=== PATIENT | female | born 1950 | race Caucasian/White ===

== ENCOUNTER 2019-07-02 06:54 | Outpatient (CLI) | payer MEDICARE, OTHER, SELFPAY ==
--- NOTE | 2019-07-02 07:03 | US_ITS ---
WS: [id number] ULTRASOUND PELVIS TECHNIQUE: Transabdominal and transvaginal. ULTRASOUND PELVIS TECHNIQUE: Transabdominal. CLINICAL INFORMATION: POSTMENOPAUSAL BLEEDING LMP: Menopause : No. COMPARISON: None. FINDINGS: Uterus Fluid noted in the lower uterine segment Orientation: Anteverted. Size: 7.7 cm x 5.2 cm x 3.4 cm. Masses: None. Cervix: Normal Endometrium: Abnormally thickened Endometrium thickness: 1.7 cm. Adnexa: Neither ovary is visualized. No adnexal masses. Free fluid: None. Other findings: None. US/US pelvic with transvaginal IMPRESSION: 1. Prominent thickened endometrium measuring 17 mm abnormal in a postmenopausa l patient suspicious for neoplasia. Recommend hysteroscopy for further evaluati on 2. Neither ovary is visualized.
== END 2019-07-02 06:55 | disposition home or self-care (01) ==
LOC: RAD 07:02
PROVIDERS: Family Provider Family Medicine; PCP Family Medicine; Visit Provider Family Medicine
DX: N95.0 Postmenopausal bleeding (principal)
CPT/HCPCS: 76830; 76856

== ENCOUNTER 2022-02-18 07:30 | Outpatient (CLI) | payer MEDICARE, SELFPAY ==
--- NOTE | 2022-02-18 08:00 | MR_ITS ---
WS: [id number] MRI LUMBAR SPINE NONCONTRAST HISTORY: Lumbar back pain with sciatica down the right side COMPARISON: None available. TECHNIQUE: Sagittal and axial multisequence imaging is submitted. Moderate increase in thoracic kyphosis. Mild RIGHT curvature thoracic spine. T7 hemangioma. LEFT lateral curvature lumbar spine. Posterior lumbar vertebral bodies are normally aligned. No marro w edema or fracture. Mild diffuse disc desiccation throughout the lumbar spine, most significant at L3-4. Conus terminates normally at L1-2 disc level. L1-L2: Normal. L2-L3: Diffuse osteophytic ridging with mild disc bulging. No focal disc component. Mild narrowing of the RIGHT foramen. Mild RIGHT facet joint arthritis. L3-L4: Mild annular disc bulging with ligamentum flavum and facet arthritis, greatest on the RIGHT. D eformity of the thecal sac due to the scoliosis and facet arthritis. There is a very shallow LEFT for aminal disc protrusion. Mild encroachment upon the traversing RIGHT L4 nerve root. Mild bilateral for aminal narrowing. L4-L5: Diffuse annular disc bulging. Shallow central disc protrusion with mild ligamentum flavum and facet arthritis. Mild bilateral subarticular recess narrowing. L5-S1: Mild disc bulging with a focal central disc protrusion. No stenosis. Retroperitoneal structures are negative. MR/MR lumbar spine wo con* [id number] IMPRESSION: 1. Degenerative disc disease and facet arthritis with LEFT lateral curvature l umbar spine. 2. Moderate foraminal narrowing at L2-3 with mild RIGHT facet joint arthritis. 3. Mild bilateral foraminal narrowing at L3-4. Very shallow LEFT foraminal dis c protrusion without nerve root encroachment. 4. Mild encroachment upon the RIGHT L4 traversing nerve root but predominantly due to the scoliosis and facet disease. 5. Central shallow disc protrusion at L4-5 with mild bilateral subarticular re cess narrowing.
== END 2022-02-18 07:31 | disposition home or self-care (01) ==
PROVIDERS: PCP Family Medicine; Visit Provider Family Medicine
DX: M54.31 Sciatica, right side (principal); M99.63 Osseous and subluxation stenosis of intervertebral foramina of lumbar region; M51.26 Other intervertebral disc displacement, lumbar region
CPT/HCPCS: 72148

== ENCOUNTER → 2022-05-17 14:56 | Outpatient (BNVA) | payer MEDICARE, SELFPAY | PROVIDERS: PCP Family Medicine; Referring Provider Family Medicine; Visit Provider Physician Assistant | DX: M47.896 Other spondylosis, lumbar region (principal); M54.16 Radiculopathy, lumbar region; M53.86 Other specified dorsopathies, lumbar region; M48.061 Spinal stenosis, lumbar region without neurogenic claudication; M25.78 Osteophyte, vertebrae | CPT/HCPCS: 72110; 99203 ==

== ENCOUNTER 2022-06-08 15:20 | Emergency (ER) | payer MEDICARE, SELFPAY ==
[2022-06-08 15:28] VITALS: BP 140/101; PULSE 94; RESP 18; TEMP 37; O2SAT 100; BMI 19.8
--- NOTE | 2022-06-08 15:57 | ED_ITS ---
HPI - Back Pain/Injury General: Chief Complaint: Back Pain/Injury Stated Complaint: nerve pain Time Seen by Provider: 06/08/22 15:41 History of Present Illness: Patient is a 71-year-old female comes to the ED with lower back pain. Patient has been dealing with lower back pain for the past 6 months. She was seen by Dr. Escudero's office and an MRI of her lumbar spine was done and she was referred to pain management clinic for some lumbar injections. She has not seen pain management yet. She is still continuing to have lower back pain that radiates down into her right leg. Bladder or bowel incontinence, pelvic anesthesia, lower extremity weakness or any recent injuries or trauma to cause pain. 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 She is currently on tramadol to help with pain. Associated symptoms: Deny abdominal pain, chills, dysuria, fatigue, fever(s), hematuria, nausea or vomiting Review of Systems Const: Denies: fever(s), chills or fatigue Eyes: Denies: change in vision or eye discomfort ENMT: Denies: throat pain, odynophagia, nasal discharge or nasal congestion Card: Denies: chest pain, palpitations, edema, swelling of feet/ankles, dyspnea on exertion or orthopnea Resp: Denies: dyspnea, productive cough or non-productive cough GI: Denies: abdominal pain, nausea, vomiting, diarrhea, constipation or hematochezia : Denies: flank pain, dysuria or hematuria Musc: Reports: back pain; Denies: neck pain or extremity swelling Skin/Breast: Denies: rash or new lesions Neuro: Denies: headache(s), numbness in extremities or weakness in extremities PFSH ED PFSH: Medical History Bulging lumbar disc Sciatica associated with disorder of lumbar spine Social History Smoking and tobacco status: never smoked Physical Exam Const: COMMON NORMALS: no acute distress, patient oriented x3 and alert HENMT: COMMON NORMALS: normocephalic HEAD & SCALP: normocephalic MOUTH: Normal oral and palatal mucosa present THROAT: posterior oropharynx normal and uvula midline Neck/C-Spine: COMMON NORMALS: supple GENERAL: Yes normal visual inspection Resp: COMMON NORMALS: normal respiratory effort, No retractions, No use of accessory muscles and clear to auscultation bilaterally AUSCULTATION: clear to auscultation bilaterally Cardio: COMMON NORMALS: regular rate, regular rhythm, S1 normal heart sound present, S2 normal heart sound present, No gallops present (Cardio), No clicks present (Cardio), No murmurs present (Cardio) and Peripheral pulses 2+ throughout RATE: regular rate RHYTHM: regular rhythm HEART SOUNDS: S1 normal heart sound present and S2 normal heart sound present PERIPHERAL PULSES: Peripheral pulses 2+ throughout GI: COMMON NORMALS: Normal to inspection, nondistended, normoactive bowel sounds present, Soft to palpation, non-tender and no masses PALPATION: Yes Soft to palpation : COMMON NORMALS: Yes no CVA tenderness BLADDER/KIDNEY EXAM: Yes no CVA tenderness Back/Pelvis: COMMON NORMALS: no CVA tenderness LUMBAR SPINE/LOWER BACK: Yes pain with ROM, No lumbar spinal tenderness and Yes paraspinal muscle tenderness Lumbar paraspinal muscle tenderness: right Right lumbar paraspinal muscle tenderness: L3, L4 and L5 Extremity: COMMON NORMALS: normal to inspection Neuro: COMMON NORMALS: patient oriented x3 SENSORIUM/ORIENTATION: Yes alert GAIT: Yes Normal gait present Skin: GENERAL SKIN EXAM: dry skin Course Vital Signs: Vital signs: Vital Signs Temperature 98.6 F 06/08/22 15:28 Pulse Rate 94 06/08/22 15:28 Respiratory Rate 18 06/08/22 15:28 Blood Pressure 140/101 06/08/22 15:28 Pulse Oximetry 100 06/08/22 15:28 Oxygen Delivery Me thod 06/08/22 15:28 MDM - Back Pain/Injury Medical Decision Making Patient is a 71-year-old female comes to the ED with lower back pain. Patient has been dealing with lower back pain for the past 6 months. She was seen by Dr. Escudero's office and an MRI of her lumbar spine was done and she was referred to pain management clinic for some lumbar injections. She has not seen pain management yet. She is still continuing to have lower back pain that radiates down into her right leg. Bladder or bowel incontinence, pelvic anesthesia, lower extremity weakness or any recent injuries or trauma to cause pain. Vital stable. Patient has L3, L4 and L5 paraspinal muscle tenderness especially on the right side. Rest of exam is benign. She appears nontoxic in no acute distress. She was given dose of Toradol, steroid and muscle relaxer here in the ED. She was stable for discharge home and told to follow-up with her PCP to get set up with pain management clinic for further treatment. She is sent with a prescription for a muscle relaxer, prednisone and NSAID. Discharge Plan Discharge Patient Disposition: Home Clinical Impression: Lumbar radiculopathy Condition: Stable Prescriptions: New celecoxib 100 mg capsule 100 mg PO BID PRN (Reason: pain) Qty: 30 0RF prednisone 20 mg tablet 20 mg PO BID 7 Days Qty: 14 0RF methocarbamol 750 mg tablet 750 mg PO Q8H PRN (Reason: Back muscle spasms and pain) Qty: 20 0RF No Action aspirin 325 mg tablet 325 mg PO Q4H Rx Instructions: while awake diclofenac sodium 50 mg tablet,delayed release (DR/EC) 50 mg PO BID Qty: 60 0RF tramadol 50 mg tablet 50 mg PO Q6H PRN (Reason: pain) 30 Days Qty: 120 0RF Discharge Orders: Discharge ED (Routine); Ordered 06/08/22 Ordered By: Gage Sanchez Referrals: Shiva Wolf MD [Primary Care Provider] - Discharge Diet: Regular Discharge Activity: Increase activity as tolerated Patient Instructions: Lumbar Radiculopathy (ED) Activity Restrictions/Additional Instructions: Follow-up with medical provider as directed in the next 7 to 10 days for reevaluation. Take medications as prescribed. Return to the ER or your medical provider if condition worsens. Please read and understand discharge instructions. Thank you for choosing [facility] for your healthcare needs today. Please realize this is an emergency room and that we are providing you with a medical screening exam and this may not be complete and all inclusive of all the testing and or work up that you may need to determine your ailment or severity of your illness. It is very important that you follow up as instructed or that you return to the Emergency Department should you have concerns or if your condition changes or worsens in any way. Coding Level of Care Code ED Territory Account Representative for Arnulfo Morales Exam Comprehensive
[2022-06-08] MEDS: ketorolac 60 mg/2 mL INJ IM (16:37)
[2022-06-08] MEDS: orphenadrine 30 mg/mL Inj 2 mL 60 MG IM (16:37)
== END 2022-06-08 16:52 | disposition home or self-care (01) ==
PROVIDERS: Emergency Provider Physician Assistant; PCP Family Medicine
DX: M54.16 Radiculopathy, lumbar region (principal)
CPT/HCPCS: 96372; 99284; J1885; J2360; J2930

== ENCOUNTER → 2022-06-14 09:50 | Outpatient (BNVA) | payer MEDICARE, SELFPAY | PROVIDERS: PCP Family Medicine; Visit Provider Anesthesiology Pain Medicine | DX: M54.16 Radiculopathy, lumbar region (principal); M51.36 Other intervertebral disc degeneration, lumbar region; M53.86 Other specified dorsopathies, lumbar region; M47.816 Spondylosis without myelopathy or radiculopathy, lumbar region; M79.604 Pain in right leg | CPT/HCPCS: 99205 ==

== ENCOUNTER → 2022-06-30 13:24 | Outpatient (BNVA) | payer MEDICARE, SELFPAY | PROVIDERS: PCP Family Medicine; Visit Provider Anesthesiology Pain Medicine | DX: M54.16 Radiculopathy, lumbar region (principal) | CPT/HCPCS: 64483; 64484; J1100; J3490 ==

== ENCOUNTER → 2022-07-14 13:09 | Outpatient (BNVA) | payer MEDICARE, SELFPAY | PROVIDERS: PCP Family Medicine; Visit Provider Anesthesiology Pain Medicine | DX: M54.16 Radiculopathy, lumbar region (principal) | CPT/HCPCS: 64483; 64484; J1100; J3490 ==

== ENCOUNTER → 2022-07-27 09:26 | Outpatient (BNVA) | payer MEDICARE, SELFPAY | PROVIDERS: PCP Family Medicine; Visit Provider Anesthesiology Pain Medicine | DX: M54.16 Radiculopathy, lumbar region (principal); M51.36 Other intervertebral disc degeneration, lumbar region; M47.816 Spondylosis without myelopathy or radiculopathy, lumbar region; M53.86 Other specified dorsopathies, lumbar region; M79.672 Pain in left foot; M79.671 Pain in right foot | CPT/HCPCS: 99213 ==

== ENCOUNTER → 2022-08-04 08:44 | Outpatient (BNVA) | payer MEDICARE, SELFPAY | PROVIDERS: PCP Family Medicine; Visit Provider Orthopaedic Surgery | DX: M48.062 Spinal stenosis, lumbar region with neurogenic claudication (principal) | CPT/HCPCS: 99214 ==

== ENCOUNTER 2022-08-08 06:00 | Outpatient (CLI) | payer MEDICARE, SELFPAY | END 2022-08-08 06:01 | disposition home or self-care (01) | LOC: RT 08-14 22:03 | PROVIDERS: PCP Family Medicine; Visit Provider Anesthesiology | DX: Z01.810 Encounter for preprocedural cardiovascular examination (principal) | CPT/HCPCS: 93005 ==

== ENCOUNTER → 2022-08-08 13:07 | Outpatient (BNVA) | payer MEDICARE, SELFPAY | PROVIDERS: PCP Family Medicine; Referring Provider Anesthesiology Pain Medicine; Visit Provider Podiatrist Foot & Ankle Surgery | DX: G57.61 Lesion of plantar nerve, right lower limb (principal); M20.41 Other hammer toe(s) (acquired), right foot; M19.071 Primary osteoarthritis, right ankle and foot; G57.91 Unspecified mononeuropathy of right lower limb | CPT/HCPCS: 73630; 93005; 99203 ==

== ENCOUNTER 2022-08-12 11:43 | Day surgery (SDC) | payer MEDICARE, SELFPAY ==
[2022-08-08 09:54] VITALS: BMI 18.2
--- NOTE | 2022-08-08 10:12 | ECG_ITS ---
[facility] Test Date: 2022-08-08 Pat Name: Arti Marie Department: Room: Gender: Female [employer] Department Chair: : 1950 Requested By: Henrik Oro Order Number: [id number] Ayden MD: Sandeep Powell M.D. Measurements Intervals [place] Rate: 89 P: 88 GA: 129 QRS: 85 QRSD: 72 T: 91 QT: 337 QTc: 412 Interpretive Statements SINUS RHYTHM POSSIBLE RIGHT ATRIAL ENLARGEMENT [0.25mV P-WAVE] POSSIBLE LEFT ATRIAL ENLARGEMENT [-0.1mV P-WAVE IN V1/V2] POSSIBLE LEFT VENTRICULAR HYPERTROPHY [VOLTAGE CRITERIA PLUS LAE OR QRS WIDENING] NONSPECIFIC ST & T-WAVE ABNORMALITY No previous ECG available for comparison Electronically Signed On 08-08-2022 17:32:37 ACCOUNTANT TAX by Sandeep Powell M.D. [email or web address]
--- NOTE | 2022-08-08 16:19 | ANES.PREANE2 ---
Pre-Anesthetic Assessment Height/Weight: Height 1.73 m Weight 54.431 kg Operation Date: 08/12/22 08:55 Proposed Procedures p Lumbar Spine Decompression:L3/4, L4/5 72026,58830, M48.062(Right) - Simone Escudero DO Familial anesthetic complications: none Was Beta Eric taken within 24 hours: N/A Was Clonidine taken within 24 hours: N/A Social No alcohol and No tobacco Exam alert, oriented x 3, clear to auscultation bilaterally and regular rate & rhythm Airway Submandibular: within normal limits Cervical ROM: within normal limits Mallampati: Class II Dentition: full Musc/skel Lower Back Pain and Osteoarthritis/DJD Neuropsych Anxiety and Neuropathy Anesthetic Plan ASA status: 2 Anesthesia: General Medications/Allergies Home Medications Medication Instructions Recorded Confirmed Last Taken Type tramadol 50 mg tablet 50 mg PO Q6H PRN pain 30 days #120 06/22/22 08/08/22 08/08/22 Rx tabs gabapentin 300 mg capsule 300 mg PO TID #90 caps 07/29/22 08/08/22 08/08/22 Rx diazepam 10 mg tablet mg PO 08/08/22 08/08/22 Unknown History Allergies Allergy/AdvReac Type Severity Reaction Status Date / Time Penicillins AdvReac Intermediate nausea Verified 08/08/22 13:18 cefdinir AdvReac Intermediate jittery Uncoded 08/08/22 13:18 [facility] Anesthesia Medical History Bulging lumbar disc Sciatica associated with disorder of lumbar spine Social History Smoking and tobacco status: never smoked Data Anesthesia Cardiac Studies: No Data to Display
[2022-08-12] VITALS (7 sets, daily range): BP systolic 106–133; BP diastolic 63–74; PULSE 61–94; RESP 16; TEMP 36.3–36.4; O2SAT 98–100
--- NOTE | 2022-08-12 | XR_ITS ---
WS: [id number] XR lumbar spine 1V [id number] REASON FOR EXAM: OR PICS FINDINGS: Surgical device overlying the right L4-5 interspace. XR/XR lumbar spine 1V [id number] IMPRESSION: Lumbar localization as above.
[2022-08-12] MEDS: sodium chloride 0.9% 1,000 ML 30 ML IV (12:36)
[2022-08-12] MEDS: HYDROmorphone 1 mg/mL INJ 1 mL 0.5 MG IVP (13:35)
[2022-08-12] MEDS: scopolamine 1.5 Patch 1 PATCH TRANSDERMA (13:35)
--- NOTE | 2022-08-12 13:38 | P.ANESUD_ITS ---
Pre-Anesthetic Update Pre-Anesthetic Assessment: Date of Surgery/Procedure: 08/12/22 Preop Sabiha gnosis: Lumbar stenosis with neurogenic claudication Proposed Procedure: Operation Date: 08/12/22 13:40 Proposed Procedures p Lumbar Spine Decompression:L3/4, L4/5 08610,68487, M48.062(Right) - Simone Escudero, DO Any changes to Pre-Anesthetic Assessment?: No Last Intake: Intake Last Liquid Date 08/12/22 Last Liquid Time 04:00 Last Solid Date 08/11/22 Last Solid Time 19:00 Vitals: Temperature 97.6 F 08/12/22 12:12 Temperature Source Temporal Artery S can 08/12/22 12:12 Pulse Rate 94 08/12/22 12:12 Pulse Rhythm 08/12/22 12:26 Pulse Strength 3+ Normal 08/12/22 12:26 Respiratory Rate 16 08/12/22 12:12 Blood Pressure 113/73 08/12/22 12:12 Blood Pressure Bridget n 86 08/12/22 12:12 Pulse Oximetry 98 08/12/22 12:12 Oxygen Delivery Me thod 08/12/22 12:26 Exam: Pre-Anes Outpt Exam: alert, oriented x 3, clear to auscultation bilaterally and regular rate & rhythm Cardiac Studies: No Data to Display
--- NOTE | 2022-08-12 13:53 | W.PM.OPSUD ---
Surgery/Procedure H&P Update DATE OF PROCEDURE: August 12, 2022 DATE H&P PERFORMED: 08/08/22 H&P UPDATE INFORMATION: I have reviewed H&P completed within last 30 days, I have examined patient prior to procedure and No changes to prior documentation PREOP DIAGNOSIS: Lumbar stenosis with neurogenic claudication PLANNED PROCEDURE: Operation Date: 08/12/22 13:40 Proposed Procedures p Lumbar Spine Decompression:L3/4, L4/5 54149,02719, M48.062(Right) - Simone Escudero DO
[2022-08-12] MEDS: clindamycin 900 MG/50 ML PREMIX 100 MG IV (14:35)
[2022-08-12] MEDS: lidocaine-epi 1% 20 mL INJ INJECTION (15:01)
--- NOTE | 2022-08-12 15:49 | PM.OP ---
Operative Report Date of procedure: August 12, 2022 Pre-op diagnosis: Preop Diagnosis Lumbar stenosis with neurogenic claudication Post-op diagnosis: same Procedure done: 1. L3-4 laminectomy with partial facetectomy 2. L4-5 laminectomy with partial facetectomy Surgeon: Simone Escudero Operational Communication Chief: Mariano Meza Estimated blood loss (mL): 5 Procedure: 1. L3-4 laminectomy with partial facetectomy 2. L4-5 laminectomy with partial facetectomy Patient is brought to the operative suite. After undergoing anesthesia they are placed in the prone position. All areas of impingement are well padded. Patient is then prepped and draped in the normal sterile fashion. A skin incision is made over the L3/4 level. This is confirmed under c-arm guidance. A series of dilators are passed and the tubular retractor is docked on the L3 lamina. A bovie is used to clear the soft tissue off the lamina and the L 3/4 facet joint. A high speed holly is then used to perform the laminectomy and take down the medial aspect of the L 3/4 facet joint. A kerrison rongeure was then used to take down the remaining lamina and smooth the edge of the laminectomy up to the point where the ligamentum flavum attaches. Attention was then brought to the medial aspect of the facet joint. The remaining medial aspect of the superior and inferior aspect of the facet joint were taken down with the kerrison from the pedicle of L3 to L 4. The facet joint had significant hypertrophy. Attention was then brought to the Ligamentum Flavum. The ligament was taken down from the lamina of L3 to L4 and out medially to the remaining facet joint. The ligament was thick. The dura was then exposed. The dura was in good repair. The L3 nerve was then traced with a curette out the L3/4 foramen and found to be adequately decompressed. The L4 nerve was traced with a curette around the L4 pedicle. The lateral recess was opened with a kerrison helping to further decompress the L4 nerve. Wound is then irrigated copiously with saline and surgiflo is used to stop any bleeding. The tubular retractor is removed and the A skin incision is made over the L4/5 level. This is confirmed under c-arm guidance. A series of dilators are passed and the tubular retractor is docked on the L4 lamina. A bovie is used to clear the soft tissue off the lamina and the L 4/5 facet joint. A high speed holly is then used to perform the laminectomy and take down the medial aspect of the L 4/5 facet joint. A kerrison rongeure was then used to take down the remaining lamina and smooth the edge of the laminectomy up to the point where the ligamentum flavum attaches. Attention was then brought to the medial aspect of the facet joint. The remaining medial aspect of the superior and inferior aspect of the facet joint were taken down with the kerrison from the pedicle of L4 to L 5. The facet joint had significant hypertrophy. Attention was then brought to the Ligamentum Flavum. The ligament was taken down from the lamina of L4 to L5 and out medially to the remaining facet joint. The ligament was thick. The dura was then exposed. The dura was in good repair. The L4 nerve was then traced with a curette out the L4/5 foramen and found to be adequately decompressed. The L5 nerve was traced with a curette around the L5 pedicle. The lateral recess was opened with a kerrison helping to further decompress the L5 nerve. Wound is then irrigated copiously with saline and surgiflo is used to stop any bleeding. The tubular retractor is removed and the wound is closed with vicryl and monocryl suture. Glue is then used to protect the wound. A sterile dressing is then placed. Patient was then placed in the supine position and transferred to the PACU in stable condition.
--- NOTE | 2022-08-12 16:18 | ANE.PACU2 ---
Inpatient post-anesthesia follow up: Airway intact: Yes Vital signs: Temperature 97.4 F Pulse Rate 71 Respiratory Rate 16 Blood Pressure 120/63 Pulse Oximetry 100 Oxygen Delivery Me thod Room Air Oxygen Flow Rate Fraction of Inspir ed Oxygen Hydration adequate: Yes Nausea and vomiting: No Pain level: 3 Mental status: Baseline
== END 2022-08-12 17:10 | disposition home or self-care (01) ==
PROVIDERS: PCP Family Medicine; Visit Provider Orthopaedic Surgery
PROC: (CPT 63005; principal; 2022-08-12 13:30)
DX: M48.062 Spinal stenosis, lumbar region with neurogenic claudication (principal); M51.36 Other intervertebral disc degeneration, lumbar region; M54.41 Lumbago with sciatica, right side; Z79.82 Long term (current) use of aspirin
CPT/HCPCS: 63047; 63048; 72020; 76000; 93005; J0131; J1100; J1170; J1885; J2370; J2405; J2704; J2710; J3010; J3490; J7030

== ENCOUNTER → 2022-08-22 13:02 | Outpatient (BNVA) | payer MEDICARE, SELFPAY | PROVIDERS: PCP Family Medicine; Visit Provider Podiatrist Foot & Ankle Surgery | DX: G57.61 Lesion of plantar nerve, right lower limb (principal); M20.41 Other hammer toe(s) (acquired), right foot; G57.91 Unspecified mononeuropathy of right lower limb; M19.071 Primary osteoarthritis, right ankle and foot | CPT/HCPCS: 64455 ==

== ENCOUNTER → 2022-08-23 13:53 | Outpatient (BNVA) | payer MEDICARE, SELFPAY | PROVIDERS: PCP Family Medicine; Visit Provider Orthopaedic Surgery | DX: Z47.89 Encounter for other orthopedic aftercare (principal) | CPT/HCPCS: 99024 ==

== ENCOUNTER → 2022-09-01 13:07 | Outpatient (BNVA) | payer MEDICARE, SELFPAY | PROVIDERS: PCP Family Medicine; Visit Provider Orthopaedic Surgery | DX: Z47.89 Encounter for other orthopedic aftercare (principal); M79.604 Pain in right leg | CPT/HCPCS: 99024 ==

== ENCOUNTER 2022-09-22 11:02 | Outpatient (CLI) | payer MEDICARE, SELFPAY ==
--- NOTE | 2022-09-22 11:00 | MR_ITS ---
WS: [id number] MRI LUMBAR SPINE NONCONTRAST HISTORY: post op lumbar sx, increased pain, decreased sensation, prior spine surgery 08/12/2022. Contin ued pain down RIGHT foot. COMPARISON: 02/18/2022 TECHNIQUE: Sagittal and axial multisequence imaging is submitted. Moderate increase in thoracic kyphosis with curvature the spine. Degenerative scoliosis. T7 hemangiom a. LEFT curvature lumbar spine. Very slight straightening of the normal lordosis. Mild disc desiccation throughout the lumbar spine. No marrow edema or fracture. Conus terminates normally at L1. L1-L2: Normal. L2-L3: Mild osteophytic ridging and disc bulging. Mild RIGHT foraminal narrowing. No change. L3-L4: Mild disc bulging. Moderate RIGHT facet joint arthritis. Mild on the LEFT. Facet joint arthrit is encroaches into the RIGHT lateral thecal sac and contacts the nerve roots. Mild encroachment upon the RIGHT traversing L4 nerve root as before. Mild LEFT foraminal narrowing. Small LEFT foraminal dis c protrusion. There are minimal postoperative changes in the soft tissues at the L3-4 level. L4-L5: Mild annular disc bulging with mild facet joint arthritis. Mild bilateral foraminal and subart icular recess stenosis. Similar to the prior study. L5-S1: No central stenosis. Very minimal disc bulging. Mild facet arthritis. There is a new lobulated soft tissue mass centered in the RIGHT foramen involving the nerve root and extending posterior to the psoas muscle. Mildly hyperintense on the T2 sequence measures 2.4 x 1.0 cm . The lobulated component that extends posterior to the psoas muscle measures 1.6 x 2.1 cm. This is a new mass since the prior study. MR/MR lumbar spine wo con* [id number] IMPRESSION: 1. New lobulated T2 mildly hyperintense mass centered in the RIGHT L5-S1 david issac and extending posterior to psoas muscle. This was not present on the prior examination from 02/18/2022. 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 This needs further evaluation with postcontrast imaging. Recommend f ollow-up MRI lumbar spine with IV contrast to evaluate for enhancement. 2. Satisfactory postsurgical changes at L3-4. 3. Moderate RIGHT facet joint arthritis at L3-4. Similar to the prior study. V romain minimal encroachment upon the RIGHT traversing L4 nerve root. Mild LEFT for aminal narrowing and disc protrusion is similar to the prior study.
== END 2022-09-22 11:03 | disposition home or self-care (01) ==
LOC: RAD 11:09
PROVIDERS: PCP Family Medicine; Visit Provider Orthopaedic Surgery
DX: M48.062 Spinal stenosis, lumbar region with neurogenic claudication (principal); M54.16 Radiculopathy, lumbar region; Z98.890 Other specified postprocedural states
CPT/HCPCS: 72148

== ENCOUNTER → 2022-09-27 12:43 | Outpatient (BNVA) | payer MEDICARE, SELFPAY | PROVIDERS: PCP Family Medicine; Visit Provider Orthopaedic Surgery | DX: M48.062 Spinal stenosis, lumbar region with neurogenic claudication (principal); R20.0 Anesthesia of skin; R20.9 Unspecified disturbances of skin sensation; D36.10 Benign neoplasm of peripheral nerves and autonomic nervous system, unspecified | CPT/HCPCS: 99024 ==

== ENCOUNTER 2022-10-11 14:48 | Outpatient (CLI) | payer MEDICARE, SELFPAY ==
--- NOTE | 2022-10-11 15:00 | CTR_ITS ---
PROCEDURE INFORMATION: Exam: CTA Right Lower Extremity With Contrast Exam date and time: 10/11/2022 3:40 PM Age: 71 years old Clinical indication: Numbness; Prior surgery; Surgery type: Back, hyst; Patient HX: HX of uterine cancer; Additional info: Numbness, cold sensation, right foot drop, rle weakness, right lower extremity TECHNIQUE: Imaging protocol: Computed tomographic angiography of the right lower extremity with contrast. 3D rendering (Not supervised by radiologist): MIP and/or 3D reconstructed images were created by the technologist. Radiation optimization: All CT scans at this facility use at least one of these dose optimization techniques: automated exposure control; mA and/or kV adjustment per patient size (includes targeted exams where dose is matched to clinical indication); or iterative reconstruction. Contrast material: OMNI 350; Contrast volume: 95 ml; Contrast route: INTRAVENOUS (IV); REPORTING DATA: Count of CT and Cardiac NM exams in prior 12 months: This patient has received 0 known CTs and 0 known cardiac nuclear medicine studies in the 12 months prior to the current study. COMPARISON: CR XR foot RT min 3V* [id number] 08/08/2022 1:10 PM RADIATION DOSE METRICS: Total DLP (mGy-cm): 560.32 FINDINGS: Aorta: Abdominal aorta: The distal abdominal aorta is patent. No aneurysm or stenosis. Right iliac arteries: The common and external iliac arteries are widely patent without stenosis. Right femoral/popliteal arteries: No occlusion or significant stenosis. Right infrapopliteal arteries: No occlusion or significant stenosis. Reproductive: The uterus and ovaries are absent. Bones/joints: Leftward lumbar curvature. The bones are intact. Soft tissues: Unremarkable. PROCEDURE INFORMATION: Exam: CTA Left Lower Extremity With Contrast Exam date and time: 10/11/2022 3:40 PM Age: 71 years old Clinical indication: Numbness; Prior surgery; Surgery type: Back, hyst; Patient HX: HX of uterine cancer; Additional info: Numbness, cold sensation, right foot drop, rle weakness, right lower extremity TECHNIQUE: Imaging protocol: Computed tomographic angiography of the left lower extremity with contrast. 3D rendering (Not supervised by radiologist): MIP and/or 3D reconstructed images were created by the technologist. REPORTING DATA: Count of CT and Cardiac NM exams in prior 12 months: This patient has received 0 known CTs and 0 known cardiac nuclear medicine studies in the 12 months prior to the current study. COMPARISON: No relevant prior studies available. FINDINGS: Left iliac arteries: The common and external iliac arteries are widely patent without stenosis. Left femoral/popliteal arteries: No occlusion or significant stenosis. Left infrapopliteal arteries: No occlusion or significant stenosis. Bones/joints: No acute fracture. No dislocation. Soft tissues: Unremarkable. CT/CT angio [facility] [id number] IMPRESSION: No large artery occlusion or stenosis.
[2022-10-11 15:37] LABS: Blood Urea Nitrogen 16 mg/dL (8-23)
[2022-10-11] MEDS: iohexol 350 mg/mL 500 mL Btl (per mL) IV (15:55)
== END 2022-10-11 14:49 | disposition home or self-care (01) ==
LOC: RAD 14:52
PROVIDERS: Radiology Neuroradiology; PCP Family Medicine; Visit Provider Orthopaedic Surgery
DX: R20.0 Anesthesia of skin (principal); R20.9 Unspecified disturbances of skin sensation
CPT/HCPCS: 73706; 82565; 84520; Q9967

== ENCOUNTER 2022-10-13 11:34 | Outpatient (CLI) | payer MEDICARE, SELFPAY ==
--- NOTE | 2022-10-13 13:00 | CTR_ITS ---
PROCEDURE INFORMATION: Exam: CT Abdomen And Pelvis With Contrast Exam date and time: 10/13/2022 1:13 PM Age: 71 years old Clinical indication: Abnormal findings; Abnormal radiologic finding of the abdomen; Radiologic exam and body structure: MR lumbar spine; Prior surgery; Surgery type: Partial hyst; Patient HX: New lobulated t2 mildly hyperintense mass centered in the right l5-s1 foramina and extending. Posterior to psoas muscle. This was not present on the prior examination from 02/18/2022. Probably; Additional info: R93.7 - abnormal findings on diagnostic imaging of other . . . TECHNIQUE: Imaging protocol: Computed tomography of the abdomen and pelvis with contrast. Radiation optimization: All CT scans at this facility use at least one of these dose optimization techniques: automated exposure control; mA and/or kV adjustment per patient size (includes targeted exams where dose is matched to clinical indication); or iterative reconstruction. Contrast material: OMNI 350; Contrast volume: 100 ml; Contrast route: INTRAVENOUS (IV); REPORTING DATA: Count of CT and Cardiac NM exams in prior 12 months: This patient has received [address] and 0 known cardiac nuclear medicine studies in the 12 months prior to the current study. COMPARISON: MR lumbar spine wo con* [id number] 09/22/2022 11:46 AM RADIATION DOSE METRICS: Total DLP (mGy-cm): 230.71 FINDINGS: Lungs: There are minor atelectatic changes at the lung bases. Liver: Normal. No mass. Gallbladder and bile ducts: Normal. No calcified stones. No ductal dilation. Pancreas: Unremarkable. Main pancreatic duct is not significantly dilated. Spleen: There are scattered calcified granulomas within the spleen, longstanding, otherwise spleen is unremarkable. Adrenal glands: Normal. No mass. Kidneys and ureters: Normal. No hydronephrosis. Stomach and bowel: Unremarkable. No obstruction. No mucosal thickening. Appendix: No evidence of appendicitis. Intraperitoneal space: Unremarkable. No free air. No significant fluid collection. Vasculature: Unremarkable. No abdominal aortic aneurysm. Lymph nodes: Unremarkable. No enlarged lymph nodes. Urinary bladder: Unremarkable as visualized. Reproductive: Uterus has been removed. Bones/joints: There is a mild scoliosis with asymmetric degenerative changes of the lumbar spine. No suspicious bone lesions detected. Soft tissues: There is a oblong-shaped indistinct soft tissue mass extending from the entry zone of the right neural foramina L5-S1 into the adjacent right paraspinal soft tissues deep to the right psoas muscle measuring approximately 4 cm in length and 1.5 cm in diameter that appears to be mildly enhancing and better demonstrated on earlier MRI exam. 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 CT/CT abdomen pelvis w con* [id number] IMPRESSION: 1. 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 2. Remainder of the CT examination is unremarkable.
[2022-10-13] MEDS: iohexol 350 mg/mL 500 mL Btl (per mL) IV (13:25)
[2022-10-13] MEDS: iohexol 350 mg/mL 500 mL Btl (per mL) PO (13:26)
== END 2022-10-13 11:35 | disposition home or self-care (01) ==
LOC: RAD 11:37
PROVIDERS: PCP Family Medicine; Visit Provider Orthopaedic Surgery
DX: R93.7 Abnormal findings on diagnostic imaging of other parts of musculoskeletal system (principal)
CPT/HCPCS: 74177; Q9967

== ENCOUNTER 2022-10-20 15:38 | Outpatient (CLI) | payer MEDICARE, SELFPAY ==
--- NOTE | 2022-10-20 16:00 | MR_ITS ---
WS: [id number] MRI RIGHT FOOT without CONTRAST. COMPARISON: 08/08/2022 Multiplanar, multisequence imaging is performed without contrast. No acute fractures or marrow edema. There is a small subchondral cyst in the medial navicular. There is an additional small subchondral cyst in the first cuneiform. No widening of the Lisfranc joint. Th e ligament appears intact and well visualized, especially the posterior component. Normal alignment w ith between the tarsal bones and metatarsals. No subluxation. No significant soft tissue edema. No fluid collections or mass identified. Distal peroneal brevis and longus are normal. No significant amount of fluid in the tendon sheaths. No significant atrophy of t he muscles. Appropriate for patient's age. MR/MR foot RT wo con* [id number] IMPRESSION: 1. No acute fractures or subluxation or dislocation. 2. No tendon abnormalities identified. 3. Small subchondral cyst in the medial navicular and first cuneiform.
== END 2022-10-20 15:39 ==
LOC: RAD 15:49
PROVIDERS: PCP Family Medicine; Visit Provider Podiatrist Foot & Ankle Surgery
DX: G57.61 Lesion of plantar nerve, right lower limb (principal); M20.41 Other hammer toe(s) (acquired), right foot; M19.079 Primary osteoarthritis, unspecified ankle and foot; G57.91 Unspecified mononeuropathy of right lower limb
CPT/HCPCS: 73718; 99213

== ENCOUNTER → 2022-10-31 14:20 | Outpatient (BNVA) | payer MEDICARE, SELFPAY | PROVIDERS: PCP Family Medicine; Visit Provider Podiatrist Foot & Ankle Surgery | DX: G57.61 Lesion of plantar nerve, right lower limb (principal); M20.41 Other hammer toe(s) (acquired), right foot; M19.071 Primary osteoarthritis, right ankle and foot; G57.91 Unspecified mononeuropathy of right lower limb | CPT/HCPCS: 99213 ==

== ENCOUNTER → 2022-11-01 12:50 | Outpatient (BNVA) | payer MEDICARE, SELFPAY | PROVIDERS: PCP Family Medicine; Visit Provider Orthopaedic Surgery | DX: D49.2 Neoplasm of unspecified behavior of bone, soft tissue, and skin (principal) | CPT/HCPCS: 99024 ==

== ENCOUNTER 2022-11-06 13:53 | Emergency (ER) | payer MEDICARE, SELFPAY ==
[2022-11-06 14:04] VITALS: BP 143/74; PULSE 80; RESP 14; TEMP 36.6; O2SAT 99; BMI 16.7
[2022-11-06 15:40] LABS: Basophils # 0.1 10^3/uL (0.0-0.1); Basophils % 0.8 %; Eosinophils # 0.1 10^3/uL (0.0-0.8); Eosinophils % 1.8 %; Hematocrit 30.3 % (37.0-47.0); Hemoglobin 9.5 g/dL (11.5-15.3); Lymphocytes # 1.6 10^3/uL (0.8-4.8); Lymphocytes % 24.9 %; Mean Corpuscular HGB Conc 31.4 g/dL (30.0-36.0); Mean Corpuscular Hemoglobin 30.4 pg (28.0-34.0); Mean Corpuscular Volume 96.8 fl (81-99); Mean Platelet Volume 9.1 fL (7.4-10.4); Monocytes # 0.3 10^3/uL (0.2-0.9); Monocytes % 5.4 %; Neutrophils % 66.9 %; Nucleated Red Blood Cells % 0 %; Platelet Count 367 10^3/cmm (130-400); Red Blood Count 3.13 10^6/uL (4.1-5.3); Red Cell Distribution Width 13.2 % (12.1-15.1); White Blood Count 6.3 10^3/uL (4.0-10.0)
[2022-11-06 16:00] LABS: Alanine Aminotransferase 23 U/L (0-33); Albumin Level 4.4 g/dL (3.5-5.2); Alkaline Phosphatase 75 U/L (35-105); Anion Gap 13.6 (5-19); Aspartate Amino Transferase 25 U/L (0-32); Blood Urea Nitrogen 17 mg/dL (8-23); Calcium 9.4 mg/dL (8.5-10.5); Carbon Dioxide 28 mmol/L (22-29); Chloride 98 mmol/L (98-107); Globulin 2.8 g/dL (1.3-4.6); Glucose 95 mg/dL (65-115); Osmolality Calculated 281 mOsm/kg (285-295); Potassium 4.6 mmol/L (3.5-5.1); Sodium 135 mmol/L (136-145); Total Bilirubin 0.2 mg/dL (0.15-1.2); Total Protein 7.2 g/dL (6.6-8.7)
--- NOTE | 2022-11-06 17:01 | W.ED.GENADLT ---
HPI - General Adult General: Chief complaint: Airway/Esophagus Foreign Body Stated complaint: Left side neck swelling Time Seen by Provider: 11/06/22 17:00 History of Present Illness: 71-year-old female comes in today for complaints of swelling to the left anterior neck. Patient reports some mild difficulty with swallowing. Airway is intact. Patient just noticed the swelling this morning. Patient reports some mild improvement in swelling since arriving to the ER. There is noticeable anterior left side swelling of the neck. Patient has a history of recent lumbar spinal surgery in August. Patient reports numbness and her right lower extremity with no improvement since surgery. 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 Fluctuant palpable mass approximately 3 cm MOUTH: Normal oral and palatal mucosa present THROAT: posterior oropharynx normal Neck/C-Spine: COMMON NORMALS: full ROM Chest: COMMONS NORMALS: normal palpation of entire chest wall Resp: COMMON NORMALS: normal respiratory effort Cardio: COMMON NORMALS: regular rate and regular rhythm RATE: regular rate RHYTHM: regular rhythm GI: COMMON NORMALS: non-tender Neuro: SENSORIUM/ORIENTATION: Yes alert Skin: COMMON NORMALS: turgor normal GENERAL SKIN EXAM: turgor normal Course ED course: 1811, reviewed patient with Dr. Hagan who recommended that we consult ENT specialist for further evaluation and treatment. I reviewed this with patient that we would reach out with ENT specialist at [facility] and she agreed with plan. 2020, discussed patient with a nurse practitioner of [facility], they recommended patient be followed up with head and neck for biopsy of lesion, and as long as she was able to manage secretions and there was in no distress she would be appropriate for outpatient follow-up. Discussed this with patient who agreed to plan and need for follow-up or return to the ER. Vital Signs: Vital signs: Vital Signs Temperature 97.8 F 11/06/22 14:04 Pulse Rate 80 11/06/22 14:04 Respiratory Rate 14 11/06/22 14:04 Blood Pressure 143/74 11/06/22 14:04 Pulse Oximetry 99 11/06/22 14:04 Oxygen Delivery Me thod Room Air 11/06/22 14:04 MDM - General Adult Medical Decision Making 71-year-old female comes in today for concerns of swelling to the left anterior neck. On exam we note a fluctuant palpable mass approximately 3 cm to the anterior neck with no signs of redness or warmth. Differential diagnosis includes not limited to aneurysm, abscess, cyst, lymphadenitis. Laboratory values noted some mild anemia with a hemoglobin 9.5. Remainder of labs are unremarkable. CT of the neck noted 5.3 round largely cystic mass to the peripheral nodule soft tissue concerning for malignant process. I discussed this with Dr. Hagan who recommended we contact the ENT at [facility] for further evaluation and discussion. They recommended outpatient follow-up with planned biopsy of the mass. Case management was requested to help set up biopsy AUNG. Patient reports understanding and need for follow-up or return to the ER. Lab Data 11/06/22 15:08 11/06/22 15:[address] 11/06/22 17:14 IMPRESSION: 1. Left medial supraclavicular 5.3 cm rounded largely cystic mass with peripheral nodular soft tissue thickening, concerning for a malignant process, tissue sampling advised. The mass causes rightward displacement of the trachea and thyroid gland as well as contacts the left common carotid artery and vertebral artery. 2. 13 mm complex cyst, further evaluation with nonemergent thyroid ultrasound advised. 3. Apical emphysematous changes. 4. Biapical pleuroparenchymal fibrosis. COMMENTS: Consistent with the [employer]'s Incidental Findings Committee white paper (J Am Colby Radiol 2015): In patients aged 35 years and older with an incidental thyroid nodule equal to or greater than 1.[address], MRI or extrathyroidal US, further evaluation with dedicated thyroid US is recommended for patients with normal life expectancy and without comorbidities. For smaller nodules without suspicious features, no further evaluation or follow up is recommended. Laboratory Results WBC 6.3 10^3/uL (4.0-10.0) 11/06/22 15:08 RBC 3.13 10^6/uL (4.1-5.3) L 11/06/22 15:08 Hgb 9.5 g/dL (11.5-15.3) L 11/06/22 15:08 Hct 30.3 % (37.0-47.0) L 11/06/22 15:08 MCV 96.8 fl (81-99) 11/06/22 15:08 MCH 30.4 pg (28.0-34.0) 11/06/22 15:08 MCHC 31.4 g/dL (30.0-36.0) 11/06/22 15:08 RDW 13.2 % (12.1-15.1) 11/06/22 15:08 Plt Count 367 10^3/cmm (130-400) 11/06/22 15:08 MPV 9.1 fL (7.4-10.4) 11/06/22 15:08 Neut % (Auto) 66.9 % 11/06/22 15:08 Lymph % (Auto) 24.9 % 11/06/22 15:08 [place] % (Auto) 5.4 % 11/06/22 15:08 Eos % (Auto) 1.8 % 11/06/22 15:08 Baso % (Auto) 0.8 % 11/06/22 15:08 Neut # (Auto) 4.20 10^3/uL (1.8-7.7) 11/06/22 15:08 Lymph # (Auto) 1.6 10^3/uL (0.8-4.8) 11/06/22 15:08 [place] # (Auto) 0.3 10^3/uL (0.2-0.9) 11/06/22 15:08 Eos # (Auto) 0.1 10^3/uL (0.0-0.8) 11/06/22 15:08 Baso # (Auto) 0.1 10^3/uL (0.0-0.1) 11/06/22 15:08 Nucleated RBC % (auto) 0 % 11/06/22 15:08 Nucleated RBCs # 0.0 /100WBC 11/06/22 15:08 Sodium 135 mmol/L (136-145) L 11/06/22 15:08 Potassium 4.6 mmol/L (3.5-5.1) 11/06/22 15:08 Chloride 98 mmol/L (98-107) 11/06/22 15:08 Carbon Dioxide 28 mmol/L (22-29) 11/06/22 15:08 Anion Gap 13.6 (5-19) 11/06/22 15:08 BUN 17 mg/dL (8-23) 11/06/22 15:08 Creatinine 0.7 mg/dL (0.5-0.9) 11/06/22 15:08 GFR Calculation Not Reportable 11/06/22 15:08 Glucose 95 mg/dL (65-115) 11/06/22 15:08 Calculated Osmolality 281 mOsm/kg (285-295) L 11/06/22 15:08 Calcium 9.4 mg/dL (8.5-10.5) 11/06/22 15:08 Total Bilirubin 0.2 mg/dL (0.15-1.2) 11/06/22 15:08 AST 25 U/L (0-32) 11/06/22 15:08 ALT 23 U/L (0-33) 11/06/22 15:08 Alkaline Phosphatase 75 U/L (35-105) 11/06/22 15:08 Total Protein 7.2 g/dL (6.6-8.7) 11/06/22 15:08 Albumin 4.4 g/dL (3.5-5.2) 11/06/22 15:08 Globulin 2.8 g/dL (1.3-4.6) 11/06/22 15:08 Discharge Plan Discharge Patient Disposition: Home Clinical Impression: Mass of left side of neck, Abnormal CT scan Condition: Stable Prescriptions: No Action prednisone 20 mg tablet 20 mg PO DAILY Qty: 15 0RF Rx Instructions: 60mg on day 1,2,3 40mg on day 4,5 20mg on day 6,7 cyclobenzaprine 5 mg tablet 5 mg PO TID PRN (Reason: muscle spasm) Qty: 30 0RF hydrocodone-acetaminophen 5-325 mg tablet 1 - 2 tab PO Q4H PRN (Reason: pain) 7 Days Qty: 40 0RF tramadol 50 mg tablet 50 mg PO Q6H PRN (Reason: pain) 30 Days Qty: 120 5RF gabapentin 300 mg capsule 300 mg PO TID Qty: 90 3RF Discharge Orders: Discharge ED (Routine); Ordered 11/06/22 Ordered By: Agustin Edge Referrals: Shiva Wolf MD [Primary Care Provider] - Discharge Diet: Usual diet Discharge Activity: Increase activity as tolerated Patient Instructions: Lump/Mass Activity Restrictions/Additional Instructions: Home and rest. Case management will contact you within the next 24 to 72 hours regarding follow-up appointment for biopsy of mass. Coding Level of Care Code ED Supervisor [employer] for [facility] Morales
--- NOTE | 2022-11-06 17:14 | CTR_ITS ---
PROCEDURE INFORMATION: Exam: CT Neck With Contrast Exam date and time: 11/06/2022 5:32 PM Age: 71 years old Clinical indication: Mass, lump, or swelling in neck; Left and anterior; Patient HX: Mass marked with radiopaque marker; Additional info: Fluctuant mass left anterior TECHNIQUE: Imaging protocol: Computed tomography of the neck with contrast. Radiation optimization: All CT scans at this facility use at least one of these dose optimization techniques: automated exposure control; mA and/or kV adjustment per patient size (includes targeted exams where dose is matched to clinical indication); or iterative reconstruction. Contrast material: OMNI 350; Contrast volume: 80 ml; Contrast route: INTRAVENOUS (IV); REPORTING DATA: Count of CT and Cardiac NM exams in prior 12 months: This patient has received 2 known CTs and 0 known cardiac nuclear medicine studies in the 12 months prior to the current study. COMPARISON: CT chest wo con [id number] 05/19/2016 2:18 PM RADIATION DOSE METRICS: Total DLP (mGy-cm): 278.42 FINDINGS: Pharynx: Unremarkable. No significant tonsillar enlargement. Larynx: Unremarkable. Epiglottis is normal. Prevertebral and retropharyngeal spaces: Unremarkable. Salivary glands: Normal. Glands are normal in size. Thyroid: 13 mm complex cyst, further evaluation with nonemergent thyroid ultrasound advised. Lymph nodes: Unremarkable. No lymphadenopathy. Trachea: Visualized trachea is unremarkable. Lungs: Apical emphysematous changes. Biapical pleuroparenchymal fibrosis. Bones/joints: Left medial supraclavicular 5.3 cm rounded largely cystic mass with peripheral nodular soft tissue thickening, concerning for a malignant process, tissue sampling advised. The mass causes rightward displacement of the trachea and thyroid gland as well as contacts the left common carotid artery and vertebral artery. Soft tissues: Unremarkable. No significant soft tissue swelling. CT/CT neck w con* [id number] IMPRESSION: 1. Left medial supraclavicular 5.3 cm rounded largely cystic mass with peripheral nodular soft tissue thickening, concerning for a malignant process, tissue sampling advised. The mass causes rightward displacement of the trachea and thyroid gland as well as contacts the left common carotid artery and vertebral artery. 2. 13 mm complex cyst, further evaluation with nonemergent thyroid ultrasound advised. 3. Apical emphysematous changes. 4. Biapical pleuroparenchymal fibrosis. COMMENTS: Consistent with the [employer]'s Incidental Findings Committee white paper (J Am Colby Radiol 2015): In patients aged 35 years and older with an incidental thyroid nodule equal to or greater than 1.[address], MRI or extrathyroidal US, further evaluation with dedicated thyroid US is recommended for patients with normal life expectancy and without comorbidities. For smaller nodules without suspicious features, no further evaluation or follow up is recommended.
--- NOTE | 2022-11-06 17:30 | PC.NURSE ---
PT IS AWAKE ALERT AND ANSWERING QUESTIONS APPROPRIATELY. PT BREATHING IS NONLABORED. RATE AND RHYTHM ARE WNL. PT SKIN IS WARM DRY AND PINK. PT HAS IN THE DISTAL END OF LEFT NECK A NONTENDER MASS STARTING TODAY APPROX THE SIZE OF AN EGG.
[2022-11-06] MEDS: iohexol 350 mg/mL 500 mL Btl (per mL) IV (17:46)
--- NOTE | 2022-11-06 18:51 | PC.NURSE ---
REPORT GIVEN TO [facility].
[2022-11-06 20:34] VITALS: BP 181/87; PULSE 86; RESP 16; O2SAT 97
--- NOTE | 2022-11-08 09:29 | DCPLANNER ---
Addendum entered by Lisbeth Oliva 11/09/22 10:13: database marketing manager called [facility] to confirm that clinic had received patients information. database marketing manager was told that patients information was received, it will be reviewed and clinic will call patient with appointment information. Original Note: database marketing manager had message to refer patient to [facility] in [place]. database marketing manager faxed patients information to the ENT clinic, where information will be reviewed. Clinic will call patient with appointment information.
== END 2022-11-06 20:35 | disposition home or self-care (01) ==
PROVIDERS: Emergency Medicine; Emergency Provider Nurse Practitioner Family; PCP Family Medicine
DX: R22.1 Localized swelling, mass and lump, neck (principal); R94.8 Abnormal results of function studies of other organs and systems
CPT/HCPCS: 36415; 70491; 80053; 85025; 99285; Q9967

== ENCOUNTER 2023-01-02 11:11 | Oncology outpatient (recurring) (ONCR) | payer MEDICARE, SELFPAY | END 2023-01-09 23:59 | disposition home or self-care (01) | LOC: ONCMED 11:12 | PROVIDERS: PCP Family Medicine; Visit Provider Internal Medicine Medical Oncology | DX: C79.51 Secondary malignant neoplasm of bone (principal); C77.0 Secondary and unspecified malignant neoplasm of lymph nodes of head, face and neck; Z85.42 Personal history of malignant neoplasm of other parts of uterus; Z92.21 Personal history of antineoplastic chemotherapy; Z92.3 Personal history of irradiation | CPT/HCPCS: 99205 ==

== ENCOUNTER 2023-02-06 08:15 | Oncology outpatient (recurring) (ONCR) | payer MEDICARE, SELFPAY ==
[2023-02-06 08:57] LABS: Basophils # 0.1 10^3/uL (0.0-0.1); Basophils % 1.4 %; Eosinophils # 0.2 10^3/uL (0.0-0.8); Eosinophils % 3.5 %; Hematocrit 25.5 % (36-47); Lymphocytes # 0.8 10^3/uL (0.8-4.8); Lymphocytes % 17.2 %; Mean Corpuscular HGB Conc 32.9 g/dL (30-55); Mean Corpuscular Hemoglobin 29.8 pg (27-33); Mean Corpuscular Volume 90.4 fl (85-98); Mean Platelet Volume 8.7 fL (7.4-10.4); Monocytes # 0.3 10^3/uL (0.2-0.9); Monocytes % 6.8 %; Neutrophils # 3.46 10^3/uL (1.8-7.7); Neutrophils % 70.9 %; Nucleated Red Blood Cells % 0 %; Platelet Count 330 10^3/cmm (157-399); Red Blood Count 2.82 10^6/uL (3.85-5.65); White Blood Count 4.88 10^3/uL (3.29-11.43)
[2023-02-06 09:32] LABS: Alanine Aminotransferase 16 U/L (0-33); Albumin Level 3.6 g/dL (3.5-5.2); Alkaline Phosphatase 52 U/L (35-105); Anion Gap 11.3 (5-19); Aspartate Amino Transferase 23 U/L (0-32); Blood Urea Nitrogen 10 mg/dL (8-23); CA 125 13.3 U/mL (0-35); Calcium 8.6 mg/dL (8.5-10.5); Carbon Dioxide 26 mmol/L (22-29); Chloride 97 mmol/L (98-107); Globulin 2.5 g/dL (1.3-4.6); Glucose 108 mg/dL (65-115); Osmolality Calculated 270 mOsm/kg (285-295); Potassium 4.3 mmol/L (3.5-5.1); Sodium 130 mmol/L (136-145); Total Bilirubin 0.2 mg/dL (0.15-1.2); Total Protein 6.1 g/dL (6.6-8.7)
[2023-02-06 10:56] VITALS: BP 157/77; PULSE 68; RESP 16; TEMP 36.6; O2SAT 92
[2023-02-06] MEDS: sodium chloride 0.9% 250 ML 75 ML IV (11:29)
[2023-02-06] MEDS: diphenhydrAMINE 50 mg/mL SDV 1mL 25 MG IVP (11:32)
[2023-02-06] MEDS: acetaminophen 325 mg Tablet 650 MG PO (11:32)
[2023-02-06] MEDS: OLANZapine 5 mg TABLET PO (11:32)
[2023-02-06] MEDS: palonosetron 0.25 mg/5 mL SDV IVP (11:36)
[2023-02-06] MEDS: famotidine 20 mg/2 mL INJ IVP (11:38)
[2023-02-06] MEDS: fosaprepitant 150 MG in sodium chloride 0.9% 150 ML 300 MG IV (11:44)
[2023-02-06 18:20] VITALS: BP 120/71; PULSE 80; RESP 16; TEMP 36.9; O2SAT 95
== END 2023-02-09 23:59 | disposition home or self-care (01) ==
PROVIDERS: PCP Family Medicine; Visit Provider Internal Medicine Medical Oncology
DX: Z51.11 Encounter for antineoplastic chemotherapy (principal); C55 Malignant neoplasm of uterus, part unspecified; C77.0 Secondary and unspecified malignant neoplasm of lymph nodes of head, face and neck; C79.51 Secondary malignant neoplasm of bone; Z79.899 Other long term (current) drug therapy; Z85.42 Personal history of malignant neoplasm of other parts of uterus
CPT/HCPCS: 80053; 85025; 86304; 96367; 96375; 96413; 96415; 96417; 99214; 99215; J1100; J1200; J1453; J1642; J2469; J3490; J7030; J7040; J7050; J9045; J9267; Q5107

== ENCOUNTER 2023-02-28 07:30 | Oncology outpatient (recurring) (ONCR) | payer MEDICARE, SELFPAY ==
[2023-02-14 10:21] LABS: Basophils % 1.2 %; Eosinophils # 0.1 10^3/uL (0.0-0.8); Eosinophils % 3.1 %; Hematocrit 25.5 % (36-47); Lymphocytes % 31.8 %; Mean Corpuscular HGB Conc 32.9 g/dL (30-55); Mean Corpuscular Volume 91.1 fl (85-98); Mean Platelet Volume 8.9 fL (7.4-10.4); Monocytes # 0.2 10^3/uL (0.2-0.9); Monocytes % 6.7 %; Neutrophils # 1.86 10^3/uL (1.8-7.7); Neutrophils % 56.9 %; Nucleated Red Blood Cells % 0 %; Platelet Count 298 10^3/cmm (157-399); Red Cell Distribution Width 12.7 % (12.1-15.1); White Blood Count 3.27 10^3/uL (3.29-11.43)
[2023-02-14 10:39] LABS: Alanine Aminotransferase 21 U/L (0-33); Albumin Level 4.1 g/dL (3.5-5.2); Alkaline Phosphatase 56 U/L (35-105); Anion Gap 11.5 (5-19); Aspartate Amino Transferase 23 U/L (0-32); Blood Urea Nitrogen 15 mg/dL (8-23); Carbon Dioxide 26 mmol/L (22-29); Chloride 95 mmol/L (98-107); Globulin 2.4 g/dL (1.3-4.6); Glucose 96 mg/dL (65-115); Osmolality Calculated 267 mOsm/kg (285-295); Potassium 4.5 mmol/L (3.5-5.1); Sodium 128 mmol/L (136-145); Total Bilirubin 0.2 mg/dL (0.15-1.2); Total Protein 6.5 g/dL (6.6-8.7)
[2023-02-21 11:29] VITALS: BMI 17.6
[2023-02-21 11:30] VITALS: BP 163/91; PULSE 73; RESP 18; TEMP 36.6; O2SAT 90
[2023-02-21 12:21] LABS: Alanine Aminotransferase 20 U/L (0-33); Albumin Level 3.9 g/dL (3.5-5.2); Alkaline Phosphatase 70 U/L (35-105); Anion Gap 11.7 (5-19); Aspartate Amino Transferase 25 U/L (0-32); Blood Urea Nitrogen 11 mg/dL (8-23); Calcium 8.8 mg/dL (8.5-10.5); Carbon Dioxide 26 mmol/L (22-29); Chloride 98 mmol/L (98-107); Globulin 2.6 g/dL (1.3-4.6); Glucose 102 mg/dL (65-115); Osmolality Calculated 272 mOsm/kg (285-295); Potassium 4.7 mmol/L (3.5-5.1); Sodium 131 mmol/L (136-145); Total Bilirubin 0.2 mg/dL (0.15-1.2); Total Protein 6.5 g/dL (6.6-8.7)
[2023-02-21 12:44] LABS: Basophils # 0.1 10^3/uL (0.0-0.1); Basophils % 1.3 %; Eosinophils # 0.1 10^3/uL (0.0-0.8); Eosinophils % 2.4 %; Hematocrit 25.2 % (36-47); Lymphocytes # 0.9 10^3/uL (0.8-4.8); Lymphocytes % 23.6 %; Mean Corpuscular HGB Conc 33.7 g/dL (30-55); Mean Corpuscular Hemoglobin 30.6 pg (27-33); Mean Corpuscular Volume 90.6 fl (85-98); Mean Platelet Volume 9.3 fL (7.4-10.4); Monocytes # 0.5 10^3/uL (0.2-0.9); Monocytes % 13.1 %; Neutrophils # 2.26 10^3/uL (1.8-7.7); Neutrophils % 59.3 %; Nucleated Red Blood Cells % 0 %; Platelet Count 249 10^3/cmm (157-399); Red Blood Count 2.78 10^6/uL (3.85-5.65); Red Cell Distribution Width 13.5 % (12.1-15.1); White Blood Count 3.81 10^3/uL (3.29-11.43)
[2023-02-28 07:39] VITALS: BP 173/104; PULSE 79; RESP 16; TEMP 36.3; O2SAT 97
[2023-02-28 08:00] LABS: Basophils % 0.3 %; Hematocrit 28.3 % (36-47); Lymphocytes # 0.5 10^3/uL (0.8-4.8); Lymphocytes % 17.3 %; Mean Corpuscular HGB Conc 33.9 g/dL (30-55); Mean Corpuscular Hemoglobin 30.1 pg (27-33); Mean Corpuscular Volume 88.7 fl (85-98); Mean Platelet Volume 8.6 fL (7.4-10.4); Monocytes % 0.7 %; Neutrophils # 2.49 10^3/uL (1.8-7.7); Neutrophils % 81.4 %; Nucleated Red Blood Cells % 0 %; Platelet Count 366 10^3/cmm (157-399); Red Blood Count 3.19 10^6/uL (3.85-5.65); Red Cell Distribution Width 13.7 % (12.1-15.1); White Blood Count 3.06 10^3/uL (3.29-11.43)
[2023-02-28 08:15] LABS: Add Urine Microscopic? YES; Bilirubin Urine Neg (Negative); Blood Urine Trace (Negative); Glucose Urine UA Norm (Normal); Ketones Urine Negative (Negative); Leukocyte Esterase Urine 2+ (Negative); Nitrate Urine Positive (Negative); Protein Urine Neg (Negative); Urine Appearance Cloudy (CLEAR); Urine Color Yellow (Yellow); Urobilinogen Urine Norm (Negative); pH Urine 7 (5-7)
[2023-02-28 08:23] LABS: Alanine Aminotransferase 18 U/L (0-33); Albumin Level 4.4 g/dL (3.5-5.2); Alkaline Phosphatase 78 U/L (35-105); Anion Gap 14.6 (5-19); Aspartate Amino Transferase 22 U/L (0-32); Blood Urea Nitrogen 10 mg/dL (8-23); Calcium 9.4 mg/dL (8.5-10.5); Carbon Dioxide 26 mmol/L (22-29); Chloride 93 mmol/L (98-107); Globulin 2.7 g/dL (1.3-4.6); Glucose 174 mg/dL (65-115); Osmolality Calculated 271 mOsm/kg (285-295); Potassium 4.6 mmol/L (3.5-5.1); Sodium 129 mmol/L (136-145); Total Bilirubin 0.2 mg/dL (0.15-1.2); Total Protein 7.1 g/dL (6.6-8.7)
[2023-02-28 08:26] LABS: RBC Urine 0-4 /hpf (0-2); WBC Urine 15-25 /hpf (0-5)
[2023-02-28 08:27] LABS: Add Urine Culture? Yes; Amorphous Sediment Urine TRACE /hpf; Bacteria Urine 3+ /hpf; Mucus Urine 1+ /hpf; Renal Epithelial Cells Urine RARE /hpf; Squamous Epithelial Cell Urine 0-4 /hpf (0-5)
[2023-02-28] MEDS: sodium chloride 0.9% 250 ML 75 ML IV (10:09)
[2023-02-28] MEDS: OLANZapine 5 mg TABLET PO (10:12)
[2023-02-28] MEDS: acetaminophen 325 mg Tablet 650 MG PO (10:12)
[2023-02-28] MEDS: palonosetron 0.25 mg/5 mL SDV IVP (10:14)
[2023-02-28] MEDS: diphenhydrAMINE 50 mg/mL SDV 1mL 25 MG IVP (10:16)
[2023-02-28] MEDS: famotidine 20 mg/2 mL INJ IVP (10:18)
[2023-02-28] MEDS: fosaprepitant 150 MG in sodium chloride 0.9% 150 ML 300 MG IV (10:22)
[2023-02-28] MEDS: [UNRECOGNIZED DRUG - REMARK] 182.22 MG IV (12:25)
[2023-02-28] MEDS: SODIUM CHLORIDE 0.9% IV (15:46)
[2023-02-28] MEDS: CARBOPLATIN IV (15:46)
[2023-02-28 17:11] VITALS: BP 154/90; PULSE 78; RESP 16; TEMP 36.4; O2SAT 98
[2023-03-01 09:40] LABS: Creatinine Urine, Random 51 mg/dL (28-217); Microalbumin Random Urine 5 ug/dL (0-20); Total Protein, Random Urine 18.1 mg/dL (0.0-20.0)
[2023-03-01 09:42] LABS: Microalbum Creatinine Ratio Ur 98 mg/dL (0-20)
== END 2023-03-11 23:59 | disposition home or self-care (01) ==
PROVIDERS: Internal Medicine Medical Oncology; Nurse Practitioner Family; PCP Family Medicine; Visit Provider Internal Medicine Medical Oncology
DX: C54.1 Malignant neoplasm of endometrium (principal); C77.0 Secondary and unspecified malignant neoplasm of lymph nodes of head, face and neck; C79.51 Secondary malignant neoplasm of bone; R60.0 Localized edema; Z92.3 Personal history of irradiation; Z51.11 Encounter for antineoplastic chemotherapy; Z53.9 Procedure and treatment not carried out, unspecified reason
CPT/HCPCS: 36591; 80053; 81001; 82044; 84156; 85025; 87077; 87086; 87186; 96367; 96374; 96375; 96376; 96413; 96415; 96417; 99214; J1100; J1200; J1453; J1642; J2469; J3490; J7030; J7040; J7050; J9045; J9267; Q5107

== ENCOUNTER 2023-04-11 11:45 | Oncology outpatient (recurring) (ONCR) | payer MEDICARE, SELFPAY ==
[2023-03-21 08:09] VITALS: BP 171/80; PULSE 63; RESP 16; TEMP 36.3; O2SAT 97
[2023-03-21 08:31] LABS: Basophils % 0.7 %; Eosinophils # 0.1 10^3/uL (0.0-0.8); Eosinophils % 2.6 %; Hematocrit 25.1 % (36-47); Lymphocytes # 0.9 10^3/uL (0.8-4.8); Lymphocytes % 32.6 %; Mean Corpuscular HGB Conc 33.9 g/dL (30-55); Mean Corpuscular Hemoglobin 30.5 pg (27-33); Mean Platelet Volume 8.7 fL (7.4-10.4); Monocytes # 0.3 10^3/uL (0.2-0.9); Neutrophils # 1.45 10^3/uL (1.8-7.7); Neutrophils % 53.7 %; Nucleated Red Blood Cells % 0 %; Platelet Count 211 10^3/cmm (157-399); Red Blood Count 2.79 10^6/uL (3.85-5.65); Red Cell Distribution Width 16.6 % (12.1-15.1)
[2023-03-21 08:53] LABS: Add Urine Culture? Yes; Add Urine Microscopic? YES; Bacteria Urine 3+ /hpf; Bilirubin Urine Neg (Negative); Blood Urine Trace (Negative); Glucose Urine UA Norm (Normal); Ketones Urine Negative (Negative); Leukocyte Esterase Urine 2+ (Negative); Nitrate Urine Positive (Negative); Protein Urine Neg (Negative); RBC Urine 0-4 /hpf (0-2); Specific Gravity, Urine 1.015 (1.005-1.030); Squamous Epithelial Cell Urine 0-4 /hpf (0-5); Urine Appearance Cloudy (CLEAR); Urine Color Yellow (Yellow); Urobilinogen Urine Norm (Negative); WBC Urine >100 /hpf (0-5); pH Urine 6 (5-7)
[2023-03-21 09:06] LABS: Alanine Aminotransferase 18 U/L (0-33); Albumin Level 3.8 g/dL (3.5-5.2); Alkaline Phosphatase 58 U/L (35-105); Anion Gap 13.6 (5-19); Aspartate Amino Transferase 22 U/L (0-32); Blood Urea Nitrogen 14 mg/dL (8-23); CA 125 9.8 U/mL (0-35); Calcium 8.1 mg/dL (8.5-10.5); Carbon Dioxide 26 mmol/L (22-29); Chloride 96 mmol/L (98-107); Globulin 2.4 g/dL (1.3-4.6); Glucose 112 mg/dL (65-115); Osmolality Calculated 273 mOsm/kg (285-295); Potassium 4.6 mmol/L (3.5-5.1); Sodium 131 mmol/L (136-145); Total Bilirubin 0.2 mg/dL (0.15-1.2); Total Protein 6.2 g/dL (6.6-8.7)
[2023-03-28 08:06] VITALS: BMI 17.0
[2023-03-28 08:07] VITALS: BP 162/96; PULSE 60; RESP 16; TEMP 36; O2SAT 99
[2023-03-28 08:11] LABS: Basophils % 1.3 %; Eosinophils # 0.1 10^3/uL (0.0-0.8); Eosinophils % 2.6 %; Hematocrit 27.2 % (36-47); Lymphocytes # 0.9 10^3/uL (0.8-4.8); Lymphocytes % 30.4 %; Mean Corpuscular HGB Conc 33.1 g/dL (30-55); Mean Corpuscular Volume 90.7 fl (85-98); Mean Platelet Volume 8.9 fL (7.4-10.4); Monocytes # 0.2 10^3/uL (0.2-0.9); Monocytes % 7.8 %; Neutrophils # 1.79 10^3/uL (1.8-7.7); Neutrophils % 57.9 %; Nucleated Red Blood Cells % 0 %; Platelet Count 311 10^3/cmm (157-399); Red Cell Distribution Width 17.6 % (12.1-15.1); White Blood Count 3.09 10^3/uL (3.29-11.43)
[2023-03-28 08:55] LABS: Alanine Aminotransferase 16 U/L (0-33); Albumin Level 4.2 g/dL (3.5-5.2); Alkaline Phosphatase 64 U/L (35-105); Aspartate Amino Transferase 21 U/L (0-32); Blood Urea Nitrogen 10 mg/dL (8-23); Calcium 9.1 mg/dL (8.5-10.5); Carbon Dioxide 25 mmol/L (22-29); Chloride 96 mmol/L (98-107); Globulin 2.6 g/dL (1.3-4.6); Glucose 100 mg/dL (65-115); Osmolality Calculated 271 mOsm/kg (285-295); Sodium 131 mmol/L (136-145); Total Bilirubin 0.2 mg/dL (0.15-1.2); Total Protein 6.8 g/dL (6.6-8.7)
[2023-03-28 09:40] LABS: Miscellaneous Test See Scanned Lab Rpt
[2023-03-28] MEDS: OLANZapine 5 mg TABLET PO (10:50)
[2023-03-28] MEDS: acetaminophen 325 mg Tablet 650 MG PO (10:50)
[2023-03-28] MEDS: sodium chloride 0.9% 250 ML 75 ML IV (10:51)
[2023-03-28] MEDS: diphenhydrAMINE 50 mg/mL SDV 1mL 25 MG IVP (10:55)
[2023-03-28] MEDS: palonosetron 0.25 mg/5 mL SDV IVP (11:01)
[2023-03-28] MEDS: famotidine 20 mg/2 mL INJ IVP (11:05)
[2023-03-28] MEDS: fosaprepitant 150 MG in sodium chloride 0.9% 150 ML 300 MG IV (11:08)
[2023-03-28] MEDS: SODIUM CHLORIDE 0.9% IV (15:01)
[2023-03-28] MEDS: BEVACIZUMAB AWWB IV (15:01)
[2023-03-28 16:00] VITALS: BP 155/85; PULSE 66; RESP 18; TEMP 35.9; O2SAT 99
[2023-04-04 11:09] VITALS: BP 160/84; PULSE 66; RESP 16; TEMP 36.1; O2SAT 95
[2023-04-04 11:19] LABS: Hematocrit 23.4 % (36-47); Lymphocytes # 0.8 10^3/uL (0.8-4.8); Lymphocytes % 42.4 %; Mean Corpuscular HGB Conc 33.3 g/dL (30-55); Mean Corpuscular Hemoglobin 30.5 pg (27-33); Mean Corpuscular Volume 91.4 fl (85-98); Mean Platelet Volume 8.8 fL (7.4-10.4); Monocytes # 0.1 10^3/uL (0.2-0.9); Monocytes % 6.1 %; Nucleated Red Blood Cells % 0 %; Platelet Count 240 10^3/cmm (157-399); Red Blood Count 2.56 10^6/uL (3.85-5.65); Red Cell Distribution Width 17.4 % (12.1-15.1); White Blood Count 1.98 10^3/uL (3.29-11.43)
[2023-04-04 11:37] LABS: Alanine Aminotransferase 15 U/L (0-33); Albumin Level 4.2 g/dL (3.5-5.2); Alkaline Phosphatase 64 U/L (35-105); Anion Gap 10.6 (5-19); Aspartate Amino Transferase 22 U/L (0-32); Blood Urea Nitrogen 13 mg/dL (8-23); Calcium 9.1 mg/dL (8.5-10.5); Carbon Dioxide 26 mmol/L (22-29); Chloride 96 mmol/L (98-107); Globulin 2.1 g/dL (1.3-4.6); Glucose 105 mg/dL (65-115); Osmolality Calculated 266 mOsm/kg (285-295); Potassium 4.6 mmol/L (3.5-5.1); Sodium 128 mmol/L (136-145); Total Bilirubin 0.2 mg/dL (0.15-1.2); Total Protein 6.3 g/dL (6.6-8.7)
[2023-04-04 11:51] LABS: Neutrophils # 0.93 10^3/uL (1.8-7.7)
[2023-04-04 12:06] LABS: Slide Review Slide Review Perform
--- NOTE | 2023-04-04 14:56 | PC.NURSE ---
Called pt, spoke with spouse. Notified of critical ANC of 0.93. Spouse states pt has not been running fever. Notified that AGUSTO Hoang will be sending antibiotic to pharmacy. States to send to [facility] pharmacy in [place]. He stated he might not be able to pick it up until tomorrow 04/05/23. Pt will return on 04/06/23 for lab recheck.
[2023-04-06 09:56] VITALS: BP 180/84; PULSE 71; RESP 16; TEMP 36.5; O2SAT 96; BMI 17.9
[2023-04-06 10:17] LABS: Basophils % 1.1 %; Eosinophils % 1.5 %; Hematocrit 23.5 % (36-47); Lymphocytes # 1.1 10^3/uL (0.8-4.8); Lymphocytes % 38.6 %; Mean Corpuscular HGB Conc 33.6 g/dL (30-55); Mean Corpuscular Hemoglobin 31.1 pg (27-33); Mean Corpuscular Volume 92.5 fl (85-98); Mean Platelet Volume 9.3 fL (7.4-10.4); Monocytes # 0.2 10^3/uL (0.2-0.9); Monocytes % 8.8 %; Neutrophils # 1.36 10^3/uL (1.8-7.7); Nucleated Red Blood Cells % 0 %; Platelet Count 253 10^3/cmm (157-399); Red Blood Count 2.54 10^6/uL (3.85-5.65); Red Cell Distribution Width 17.6 % (12.1-15.1); White Blood Count 2.72 10^3/uL (3.29-11.43)
[2023-04-06 10:31] LABS: Alanine Aminotransferase 14 U/L (0-33); Alkaline Phosphatase 65 U/L (35-105); Anion Gap 12.6 (5-19); Aspartate Amino Transferase 18 U/L (0-32); Blood Urea Nitrogen 15 mg/dL (8-23); Calcium 9.2 mg/dL (8.5-10.5); Carbon Dioxide 25 mmol/L (22-29); Chloride 97 mmol/L (98-107); Globulin 2.4 g/dL (1.3-4.6); Glucose 98 mg/dL (65-115); Osmolality Calculated 271 mOsm/kg (285-295); Potassium 4.6 mmol/L (3.5-5.1); Sodium 130 mmol/L (136-145); Total Bilirubin 0.2 mg/dL (0.15-1.2); Total Protein 6.4 g/dL (6.6-8.7)
[2023-04-11 11:40] VITALS: BP 143/63; PULSE 71; RESP 16; TEMP 36.1; O2SAT 97
[2023-04-11 11:49] LABS: Add Urine Microscopic? NO; Charge for UA Resulting for Rev
[2023-04-11 11:57] LABS: Basophils % 1.2 %; Eosinophils % 2.3 %; Lymphocytes # 0.8 10^3/uL (0.8-4.8); Lymphocytes % 44.2 %; Mean Corpuscular HGB Conc 33.6 g/dL (30-55); Mean Corpuscular Hemoglobin 31.5 pg (27-33); Mean Corpuscular Volume 93.6 fl (85-98); Mean Platelet Volume 8.9 fL (7.4-10.4); Monocytes # 0.3 10^3/uL (0.2-0.9); Monocytes % 15.1 %; Neutrophils % 37.2 %; Nucleated Red Blood Cells % 0 %; Platelet Count 278 10^3/cmm (157-399); Red Blood Count 2.67 10^6/uL (3.85-5.65); Red Cell Distribution Width 18.8 % (12.1-15.1); White Blood Count 1.72 10^3/uL (3.29-11.43)
[2023-04-11 12:04] LABS: Bilirubin Urine Neg (Negative); Blood Urine Neg (Negative); Glucose Urine UA Norm (Normal); Ketones Urine Negative (Negative); Leukocyte Esterase Urine Negative (Negative); Nitrate Urine Negative (Negative); Protein Urine Neg (Negative); Urine Appearance Clear (CLEAR); Urine Color Yellow (Yellow); Urobilinogen Urine Norm (Negative); pH Urine 5 (5-7)
[2023-04-11 12:14] LABS: Alanine Aminotransferase 14 U/L (0-33); Albumin Level 4.2 g/dL (3.5-5.2); Alkaline Phosphatase 59 U/L (35-105); Anion Gap 12.4 (5-19); Aspartate Amino Transferase 17 U/L (0-32); Blood Urea Nitrogen 12 mg/dL (8-23); Calcium 9.1 mg/dL (8.5-10.5); Carbon Dioxide 24 mmol/L (22-29); Chloride 98 mmol/L (98-107); Globulin 2.3 g/dL (1.3-4.6); Glucose 102 mg/dL (65-115); Osmolality Calculated 270 mOsm/kg (285-295); Potassium 4.4 mmol/L (3.5-5.1); Sodium 130 mmol/L (136-145); Total Bilirubin 0.2 mg/dL (0.15-1.2); Total Protein 6.5 g/dL (6.6-8.7)
[2023-04-11 12:35] LABS: Neutrophils # 0.64 10^3/uL (1.8-7.7)
== END 2023-04-11 23:59 | disposition home or self-care (01) ==
PROVIDERS: Internal Medicine Medical Oncology; Nurse Practitioner Family; PCP Family Medicine; Visit Provider Internal Medicine Medical Oncology
DX: C79.51 Secondary malignant neoplasm of bone (principal); Z95.828 Presence of other vascular implants and grafts
CPT/HCPCS: 36591; 80053; 81001; 81003; 85025; 86304; 87077; 87086; 87186; 96367; 96372; 96375; 96413; 96417; 99214; J1100; J1200; J1453; J1642; J2469; J3490; J7030; J7040; J7050; J9045; J9267; Q5107; Q5108

== ENCOUNTER 2023-05-09 08:45 | Oncology outpatient (recurring) (ONCR) | payer MEDICARE, SELFPAY ==
[2023-04-25 08:55] VITALS: BP 138/71; PULSE 68; RESP 17; TEMP 36.8; O2SAT 99
[2023-04-25 08:56] VITALS: BMI 17.6
[2023-04-25 09:01] LABS: Basophils # 0.1 10^3/uL (0.0-0.1); Basophils % 0.4 %; Eosinophils % 0.1 %; Hematocrit 25.2 % (36-47); Lymphocytes # 0.9 10^3/uL (0.8-4.8); Mean Corpuscular HGB Conc 33.7 g/dL (30-55); Mean Corpuscular Hemoglobin 31.7 pg (27-33); Mean Platelet Volume 9.1 fL (7.4-10.4); Monocytes # 0.6 10^3/uL (0.2-0.9); Monocytes % 4.5 %; Neutrophils # 12.59 10^3/uL (1.8-7.7); Neutrophils % 88.4 %; Nucleated Red Blood Cells % 0 %; Platelet Count 232 10^3/cmm (157-399); Red Blood Count 2.68 10^6/uL (3.85-5.65); Red Cell Distribution Width 18.9 % (12.1-15.1); White Blood Count 14.25 10^3/uL (3.29-11.43)
[2023-04-25 09:24] LABS: Add Urine Microscopic? YES; Bilirubin Urine Neg (Negative); Blood Urine Neg (Negative); Glucose Urine UA Norm (Normal); Ketones Urine 1+ (Negative); Leukocyte Esterase Urine Trace (Negative); Nitrate Urine Negative (Negative); Protein Urine Neg (Negative); Urine Appearance Clear (CLEAR); Urine Color Dark Yellow (Yellow); Urobilinogen Urine Neg (Negative); pH Urine 6 (5-7)
[2023-04-25 09:25] LABS: Bacteria Urine TRACE /hpf; Mucus Urine 1+ /hpf; RBC Urine 0-4 /hpf (0-2); Squamous Epithelial Cell Urine 0-4 /hpf (0-5); Transitional Epi Cells Urine 0-4 /hpf; WBC Urine 0-4 /hpf (0-5)
[2023-04-25 09:26] LABS: Add Urine Culture? No
[2023-04-25 09:30] LABS: Alanine Aminotransferase 32 U/L (0-33); Albumin Level 3.9 g/dL (3.5-5.2); Alkaline Phosphatase 169 U/L (35-105); Anion Gap 14.3 (5-19); Aspartate Amino Transferase 27 U/L (0-32); Blood Urea Nitrogen 13 mg/dL (8-23); CA 125 8.8 U/mL (0-35); Calcium 9.1 mg/dL (8.5-10.5); Carbon Dioxide 24 mmol/L (22-29); Chloride 96 mmol/L (98-107); Globulin 2.8 g/dL (1.3-4.6); Glucose 105 mg/dL (65-115); Osmolality Calculated 270 mOsm/kg (285-295); Potassium 4.3 mmol/L (3.5-5.1); Sodium 130 mmol/L (136-145); Total Bilirubin 0.3 mg/dL (0.15-1.2); Total Protein 6.7 g/dL (6.6-8.7)
[2023-04-25] MEDS: OLANZapine 5 mg TABLET PO (10:59)
[2023-04-25] MEDS: acetaminophen 325 mg Tablet 650 MG PO (10:59)
[2023-04-25] MEDS: sodium chloride 0.9% 250 ML 75 ML IV (11:01)
[2023-04-25] MEDS: palonosetron 0.25 mg/5 mL SDV IVP (11:07)
[2023-04-25] MEDS: famotidine 20 mg/2 mL INJ IVP (11:10)
[2023-04-25] MEDS: diphenhydrAMINE 50 mg/mL SDV 1mL 25 MG IVP (11:12)
[2023-04-25] MEDS: fosaprepitant 150 MG in sodium chloride 0.9% 150 ML 300 MG IV (11:31)
[2023-04-25] MEDS: CARBOplatin 550 MG in sodium chloride 0.9% 500 ML 555 MG IV (15:54)
[2023-04-25 17:12] VITALS: BP 129/79; PULSE 100; RESP 16; TEMP 36.6; O2SAT 100
[2023-05-01 09:28] VITALS: BP 151/80; PULSE 70; RESP 16; TEMP 36.2; O2SAT 98
[2023-05-01 09:44] LABS: Basophils % 1.5 %; Eosinophils # 0.1 10^3/uL (0.0-0.8); Hematocrit 23.1 % (36-47); Lymphocytes # 0.7 10^3/uL (0.8-4.8); Lymphocytes % 25.8 %; Mean Corpuscular HGB Conc 33.3 g/dL (30-55); Mean Corpuscular Volume 95.9 fl (85-98); Monocytes % 1.1 %; Neutrophils # 1.79 10^3/uL (1.8-7.7); Neutrophils % 67.8 %; Nucleated Red Blood Cells % 0 %; Platelet Count 255 10^3/cmm (157-399); Red Blood Count 2.41 10^6/uL (3.85-5.65); Red Cell Distribution Width 17.5 % (12.1-15.1); White Blood Count 2.64 10^3/uL (3.29-11.43)
[2023-05-01 10:02] LABS: Alanine Aminotransferase 22 U/L (0-33); Albumin Level 3.6 g/dL (3.5-5.2); Alkaline Phosphatase 110 U/L (35-105); Anion Gap 14.8 (5-19); Aspartate Amino Transferase 21 U/L (0-32); Blood Urea Nitrogen 13 mg/dL (8-23); Calcium 8.7 mg/dL (8.5-10.5); Carbon Dioxide 23 mmol/L (22-29); Chloride 93 mmol/L (98-107); Globulin 2.7 g/dL (1.3-4.6); Glucose 105 mg/dL (65-115); Osmolality Calculated 262 mOsm/kg (285-295); Potassium 4.8 mmol/L (3.5-5.1); Sodium 126 mmol/L (136-145); Total Bilirubin 0.2 mg/dL (0.15-1.2); Total Protein 6.3 g/dL (6.6-8.7)
[2023-05-09] VITALS (9 sets, daily range): BP systolic 145–185; BP diastolic 77–90; PULSE 62–85; RESP 16; TEMP 35.9–36.5; O2SAT 94–99
[2023-05-09 09:05] LABS: Eosinophils # 0.1 10^3/uL (0.0-0.8); Eosinophils % 3.6 %; Hematocrit 23.4 % (36-47); Lymphocytes # 0.8 10^3/uL (0.8-4.8); Lymphocytes % 38.9 %; Mean Corpuscular HGB Conc 32.1 g/dL (30-55); Mean Corpuscular Hemoglobin 31.4 pg (27-33); Mean Corpuscular Volume 97.9 fl (85-98); Monocytes # 0.4 10^3/uL (0.2-0.9); Monocytes % 18.7 %; Neutrophils % 37.8 %; Nucleated Red Blood Cells % 0 %; Platelet Count 236 10^3/cmm (157-399); Red Blood Count 2.39 10^6/uL (3.85-5.65); Red Cell Distribution Width 17.2 % (12.1-15.1); White Blood Count 1.93 10^3/uL (3.29-11.43)
[2023-05-09 09:19] LABS: Neutrophils # 0.73 10^3/uL (1.8-7.7)
[2023-05-09 09:23] LABS: Alanine Aminotransferase 18 U/L (0-33); Albumin Level 4.1 g/dL (3.5-5.2); Alkaline Phosphatase 100 U/L (35-105); Anion Gap 13.7 (5-19); Aspartate Amino Transferase 23 U/L (0-32); Blood Urea Nitrogen 17 mg/dL (8-23); Calcium 9.1 mg/dL (8.5-10.5); Carbon Dioxide 24 mmol/L (22-29); Chloride 96 mmol/L (98-107); Globulin 2.2 g/dL (1.3-4.6); Glucose 90 mg/dL (65-115); Osmolality Calculated 269 mOsm/kg (285-295); Potassium 4.7 mmol/L (3.5-5.1); Sodium 129 mmol/L (136-145); Total Bilirubin 0.2 mg/dL (0.15-1.2); Total Protein 6.3 g/dL (6.6-8.7)
[2023-05-09] MEDS: sodium chloride 0.9% 250 mL Bag IV (10:58)
[2023-05-09] MEDS: acetaminophen 325 mg Tablet 650 MG PO (10:58)
[2023-05-09] MEDS: filgrastim-sndz 300 mcg/0.5 mL Syringe SUBCUT (14:54)
== END 2023-05-09 23:59 | disposition home or self-care (01) ==
PROVIDERS: Nurse Practitioner Family; PCP Family Medicine; Visit Provider Internal Medicine Medical Oncology
DX: C79.51 Secondary malignant neoplasm of bone; D64.9 Anemia, unspecified
CPT/HCPCS: 36430; 36591; 80053; 81001; 85025; 86304; 86850; 86900; 86920; 96365; 96367; 96372; 96374; 96375; 96413; 96415; 96417; 99214; J1100; J1200; J1453; J1642; J2469; J3490; J7030; J7040; J7050; J9045; J9267; P9040; Q5101; Q5107

== ENCOUNTER 2023-05-10 08:53 | Oncology outpatient (recurring) (ONCR) | payer MEDICARE, SELFPAY ==
[2023-05-10] MEDS: filgrastim-sndz 300 mcg/0.5 mL Syringe SUBCUT (09:43)
[2023-05-10 09:45] VITALS: BP 167/93; PULSE 76; RESP 16; O2SAT 98
== END 2023-05-11 23:59 | disposition home or self-care (01) ==
LOC: ONCMED 08:53
PROVIDERS: PCP Family Medicine; Visit Provider Internal Medicine Medical Oncology
DX: C79.51 Secondary malignant neoplasm of bone (principal)
CPT/HCPCS: 96372; Q5101

== ENCOUNTER 2023-05-16 07:48 | Oncology outpatient (recurring) (ONCR) | payer MEDICARE, SELFPAY ==
[2023-05-16 07:52] VITALS: BP 157/81; PULSE 74; RESP 16; TEMP 36.3; O2SAT 97
[2023-05-16 08:09] LABS: Add Urine Microscopic? NO; Charge for UA Resulting for Rev
[2023-05-16 08:21] LABS: Basophils # 0.1 10^3/uL (0.0-0.1); Basophils % 1.3 %; Eosinophils # 0.1 10^3/uL (0.0-0.8); Eosinophils % 1.6 %; Hematocrit 34.9 % (36-47); Lymphocytes # 1.2 10^3/uL (0.8-4.8); Mean Corpuscular HGB Conc 33.2 g/dL (30-55); Mean Corpuscular Hemoglobin 32.3 pg (27-33); Mean Corpuscular Volume 97.2 fl (85-98); Mean Platelet Volume 8.9 fL (7.4-10.4); Monocytes # 0.5 10^3/uL (0.2-0.9); Monocytes % 10.2 %; Neutrophils # 2.69 10^3/uL (1.8-7.7); Neutrophils % 59.8 %; Nucleated Red Blood Cells % 0 %; Platelet Count 271 10^3/cmm (157-399); Red Blood Count 3.59 10^6/uL (3.85-5.65); Red Cell Distribution Width 16.6 % (12.1-15.1)
[2023-05-16 08:26] LABS: Bilirubin Urine Neg (Negative); Blood Urine Neg (Negative); Glucose Urine UA Norm (Normal); Ketones Urine Negative (Negative); Leukocyte Esterase Urine Negative (Negative); Nitrate Urine Negative (Negative); Protein Urine Neg (Negative); Urine Appearance Clear (CLEAR); Urine Color Yellow (Yellow); Urobilinogen Urine Norm (Negative); pH Urine 6 (5-7)
[2023-05-16 08:27] LABS: Alanine Aminotransferase 19 U/L (0-33); Albumin Level 4.1 g/dL (3.5-5.2); Alkaline Phosphatase 128 U/L (35-105); Anion Gap 14.6 (5-19); Aspartate Amino Transferase 22 U/L (0-32); Blood Urea Nitrogen 14 mg/dL (8-23); Carbon Dioxide 25 mmol/L (22-29); Chloride 96 mmol/L (98-107); Globulin 2.5 g/dL (1.3-4.6); Glucose 109 mg/dL (65-115); Osmolality Calculated 273 mOsm/kg (285-295); Potassium 4.6 mmol/L (3.5-5.1); Sodium 131 mmol/L (136-145); Total Bilirubin 0.2 mg/dL (0.15-1.2); Total Protein 6.6 g/dL (6.6-8.7)
[2023-05-16] MEDS: sodium chloride 0.9% 500 ML 75 ML IV (10:31)
[2023-05-16] MEDS: acetaminophen 325 mg Tablet 650 MG PO (10:32)
[2023-05-16] MEDS: OLANZapine 5 mg TABLET PO (10:33)
[2023-05-16] MEDS: famotidine 20 mg/2 mL INJ IVP (10:34)
[2023-05-16] MEDS: palonosetron 0.25 mg/5 mL SDV IVP (10:38)
[2023-05-16] MEDS: fosaprepitant 150 MG in sodium chloride 0.9% 150 ML 300 MG IV (10:42)
[2023-05-16] MEDS: SODIUM CHLORIDE 0.9% IV (12:13)
[2023-05-16] MEDS: BEVACIZUMAB AWWB IV (12:13)
[2023-05-16] MEDS: pegfilgrastim 6 mg/0.6 mL Kit (onpro) SUBCUT (17:23)
[2023-05-16 17:36] VITALS: BP 196/105; PULSE 66; TEMP 35.9; O2SAT 99
== END 2023-05-16 23:59 | disposition home or self-care (01) ==
PROVIDERS: Nurse Practitioner Family; PCP Family Medicine; Visit Provider Internal Medicine Medical Oncology
DX: C79.51 Secondary malignant neoplasm of bone (principal); Z95.828 Presence of other vascular implants and grafts; C55 Malignant neoplasm of uterus, part unspecified; Z51.11 Encounter for antineoplastic chemotherapy; E87.1 Hypo-osmolality and hyponatremia; N39.0 Urinary tract infection, site not specified; Z79.899 Other long term (current) drug therapy
CPT/HCPCS: 80053; 81003; 85025; 96367; 96375; 96377; 96413; 96415; 96417; 99214; J1100; J1453; J1642; J2469; J2506; J3490; J7030; J7040; J9045; J9267; Q5107

== ENCOUNTER 2023-06-06 07:28 | Oncology outpatient (recurring) (ONCR) | payer MEDICARE, SELFPAY ==
[2023-06-06 07:53] VITALS: BP 135/77; PULSE 77; RESP 16; O2SAT 97
[2023-06-06 07:55] VITALS: BP 161/83; PULSE 68; RESP 17; TEMP 36; O2SAT 99
[2023-06-06 08:08] LABS: Add Urine Microscopic? NO; Charge for UA Resulting for Rev
[2023-06-06 08:09] LABS: Basophils % 0.8 %; Eosinophils # 0.1 10^3/uL (0.0-0.8); Eosinophils % 0.9 %; Hematocrit 29.1 % (36-47); Lymphocytes % 18.8 %; Mean Corpuscular Hemoglobin 32.2 pg (27-33); Mean Corpuscular Volume 94.8 fl (85-98); Mean Platelet Volume 8.6 fL (7.4-10.4); Monocytes # 0.4 10^3/uL (0.2-0.9); Monocytes % 7.8 %; Neutrophils # 3.77 10^3/uL (1.8-7.7); Neutrophils % 71.3 %; Nucleated Red Blood Cells % 0 %; Platelet Count 310 10^3/cmm (157-399); Red Blood Count 3.07 10^6/uL (3.85-5.65); Red Cell Distribution Width 15.7 % (12.1-15.1); White Blood Count 5.28 10^3/uL (3.29-11.43)
[2023-06-06 08:18] LABS: Bilirubin Urine Neg (Negative); Blood Urine Neg (Negative); Glucose Urine UA Norm (Normal); Ketones Urine Negative (Negative); Leukocyte Esterase Urine Negative (Negative); Nitrate Urine Negative (Negative); Protein Urine Neg (Negative); Specific Gravity, Urine 1.015 (1.005-1.030); Urine Appearance Clear (CLEAR); Urine Color Yellow (Yellow); Urobilinogen Urine Norm (Negative); pH Urine 6 (5-7)
[2023-06-06 08:30] LABS: Alanine Aminotransferase 16 U/L (0-33); Albumin Level 4.2 g/dL (3.5-5.2); Alkaline Phosphatase 131 U/L (35-105); Anion Gap 14.3 (5-19); Aspartate Amino Transferase 18 U/L (0-32); Blood Urea Nitrogen 11 mg/dL (8-23); Calcium 9.3 mg/dL (8.5-10.5); Carbon Dioxide 25 mmol/L (22-29); Chloride 94 mmol/L (98-107); Globulin 2.6 g/dL (1.3-4.6); Glucose 96 mg/dL (65-115); Osmolality Calculated 267 mOsm/kg (285-295); Potassium 4.3 mmol/L (3.5-5.1); Sodium 129 mmol/L (136-145); Total Bilirubin 0.3 mg/dL (0.15-1.2); Total Protein 6.8 g/dL (6.6-8.7)
[2023-06-06] MEDS: sodium chloride 0.9% 250 ML 75 ML IV (09:56)
[2023-06-06] MEDS: BEVACIZUMAB AWWB IV (10:25)
[2023-06-06] MEDS: SODIUM CHLORIDE 0.9% IV (10:25)
[2023-06-06 11:12] VITALS: BP 164/94; PULSE 67; RESP 17; TEMP 36.4
[2023-06-06 11:19] VITALS: O2SAT 99
== END 2023-06-11 23:59 | disposition home or self-care (01) ==
PROVIDERS: Nurse Practitioner Family; PCP Family Medicine; Visit Provider Internal Medicine Medical Oncology
DX: C79.51 Secondary malignant neoplasm of bone (principal); Z95.828 Presence of other vascular implants and grafts; C55 Malignant neoplasm of uterus, part unspecified; Z51.11 Encounter for antineoplastic chemotherapy; E87.1 Hypo-osmolality and hyponatremia; N39.0 Urinary tract infection, site not specified; Z79.899 Other long term (current) drug therapy
CPT/HCPCS: 80053; 81003; 85025; 96365; 96413; 99215; J1642; J7050; Q5107

== ENCOUNTER 2023-06-14 08:57 | Outpatient (CLI) | payer MEDICARE, SELFPAY ==
--- NOTE | 2023-06-14 09:30 | MR_ITS ---
WS: [id number] MRI LUMBAR SPINE WITH CONTRAST TECHNIQUE: Sagittal T1, T2 and STIR imaging. Axial T1 and T2 imaging. Post gadolinium imaging was obt ained. CLINICAL INFORMATION: restaging COMPARISON: MRI 11/29/2022 and outside MRI 11/29/2022. Outside report not available. FINDINGS: Some images limited by motion Mild lumbar curve. No acute compression. No high-grade central canal stenosis. L1-L2: Normal. L2-L3: Mild annular bulging. Spinal canal and foramen are patent. Mild facet arthropathy. L3-L4: Minimal annular bulging with slight effacement of the ventral thecal sac. Mild LEFT greater th an RIGHT foraminal narrowing. Moderate facet arthropathy. Slight narrowing of the RIGHT subarticular recess. L4-L5: Mild annular bulging with a tiny shallow central protrusion. Moderate facet arthropathy. Mild RIGHT and no significant LEFT foraminal narrowing. Mild facet arthropathy. Evidence of prior RIGHT he milaminectomy defects. L5-S1: No significant disc bulging. Spinal canal is patent. Previously described lobulated soft tissu e mass involving the RIGHT exiting L5 nerve root extending posterior to the RIGHT psoas appears to meyer ve resolved compared to previous. Moderate facet arthropathy. Mild RIGHT foraminal narrowing. Mild re sidual irregularity of the exiting RIGHT L5 nerve root. Visualized pelvic bony structures: Normal. Paravertebral soft tissues: Normal. Shallow disc osteophyte protrusion in the cervical spine at C5-6. Mild dilatation of the RIGHT renal pelvis appears new compared to the prior MRI studies. IMPRESSION: Some images limited by motion. 1. Mild lumbar curve. No acute compression. No high-grade central canal stenosis. 2. Previously described lobulated perineural mass involving the exiting RIGHT L5 nerve root appears resolved compared to the prior studies likely due to interval treatment or resection. Previously desc ribed nodularity posterior to the RIGHT psoas appears resolved. Recommend correlation with clinical h istory. 3. No evidence of bony metastatic disease in the lumbar spine. 4. Mild RIGHT hydronephrosis partially visualized. This can be further evaluated with noncontrast an d contrast-enhanced CT abdomen pelvis. This appears new from the prior MRI.
[2023-06-14] MEDS: gadobenate dimeglumine 20 mL vial IV (10:23)
== END 2023-06-14 08:58 | disposition home or self-care (01) ==
LOC: RAD 08:58
PROVIDERS: PCP Family Medicine; Visit Provider Internal Medicine Medical Oncology
DX: C54.1 Malignant neoplasm of endometrium (principal); C79.51 Secondary malignant neoplasm of bone; M54.9 Dorsalgia, unspecified; R20.0 Anesthesia of skin; N13.30 Unspecified hydronephrosis
CPT/HCPCS: 72158; A9577

== ENCOUNTER 2023-06-27 12:44 | Outpatient (CLI) | payer MEDICARE, SELFPAY ==
--- NOTE | 2023-06-27 14:00 | USCV_ITS ---
Arti Marie Age: 72 Gender: F : 1950 Exam Date: 06/27/2023 14:26 Ordering Phys: Amrit Madison MD Technologist: eLticia Larsen Exam Location: [facility] [place] Indication: pain Risk Factors: Previous Vascular Surgery: RIGHT LEFT BP: 170.0 / BP: 188.0/ 0 0 Waveform Velocity (cm/s) Velocity (cm/s) Waveform Biphasic 152.1 Iliac Prox 250.0 Triphasic Biphasic 115.3 Iliac Mid 174.8 Biphasic Biphasic 104.4 Iliac Distal 128.3 Biphasic Biphasic 78.1 FLY FISHING GUIDE 86.0 Biphasic Biphasic 89.8 SFA Prox 81.4 Biphasic Biphasic 91.7 SFA Mid 61.0 Biphasic Biphasic SFA Dist Biphasic 91.7 76.0 Biphasic 58.9 POP 55.7 Biphasic Biphasic 89.9 CALL MANAGER 49.2 Biphasic Biphasic 43.9 DPA 34.7 Biphasic 1.0 JANICE 1.0 FINDINGS Resting JANICE 1.0 bilaterally Normal/near normal arterial Doppler waveforms Intimal thickening in the femoral iliac, femoral and popliteal arteries bilaterally CONCLUSIONS Normal resting ABIs bilaterally No significant arterial obstruction, based on the above findings No unstable plaques or lesions in the above-mentioned arteries Dr Vikash Smith MD [facility] (Electronically Signed) Final Date: 27 June 2023 19:34 S
== END 2023-06-27 12:45 | disposition home or self-care (01) ==
LOC: RAD 12:45
PROVIDERS: PCP Family Medicine; Visit Provider Internal Medicine Medical Oncology
DX: M79.604 Pain in right leg (principal); M79.605 Pain in left leg; Z48.89 Encounter for other specified surgical aftercare; R09.89 Other specified symptoms and signs involving the circulatory and respiratory systems
CPT/HCPCS: 93925

== ENCOUNTER 2023-07-06 09:30 | Oncology outpatient (recurring) (ONCR) | payer MEDICARE, SELFPAY ==
[2023-06-27 08:13] VITALS: BP 181/77; PULSE 63; RESP 17; TEMP 35.9; O2SAT 97
[2023-06-27 08:14] LABS: Basophils # 0.1 10^3/uL (0.0-0.1); Basophils % 1.4 %; Eosinophils # 0.3 10^3/uL (0.0-0.8); Eosinophils % 7.3 %; Hematocrit 31.4 % (36-47); Lymphocytes # 0.9 10^3/uL (0.8-4.8); Lymphocytes % 23.9 %; Mean Corpuscular HGB Conc 33.1 g/dL (30-55); Mean Corpuscular Hemoglobin 32.2 pg (27-33); Mean Corpuscular Volume 97.2 fl (85-98); Mean Platelet Volume 9.2 fL (7.4-10.4); Monocytes # 0.3 10^3/uL (0.2-0.9); Monocytes % 8.2 %; Neutrophils # 2.09 10^3/uL (1.8-7.7); Neutrophils % 58.9 %; Nucleated Red Blood Cells % 0 %; Platelet Count 234 10^3/cmm (157-399); Red Blood Count 3.23 10^6/uL (3.85-5.65); Red Cell Distribution Width 14.8 % (12.1-15.1); White Blood Count 3.55 10^3/uL (3.29-11.43)
[2023-06-27 08:24] LABS: Alanine Aminotransferase 17 U/L (0-33); Albumin Level 4.1 g/dL (3.5-5.2); Alkaline Phosphatase 84 U/L (35-105); Anion Gap 12.2 (5-19); Aspartate Amino Transferase 21 U/L (0-32); Blood Urea Nitrogen 10 mg/dL (8-23); Calcium 9.3 mg/dL (8.5-10.5); Carbon Dioxide 27 mmol/L (22-29); Chloride 99 mmol/L (98-107); Globulin 2.5 g/dL (1.3-4.6); Glucose 99 mg/dL (65-115); Osmolality Calculated 277 mOsm/kg (285-295); Potassium 4.2 mmol/L (3.5-5.1); Sodium 134 mmol/L (136-145); Total Bilirubin 0.2 mg/dL (0.15-1.2); Total Protein 6.6 g/dL (6.6-8.7)
[2023-06-27 09:11] VITALS: BP 198/110; PULSE 67; RESP 18; O2SAT 98
[2023-06-27 09:31] LABS: Add Urine Microscopic? YES; Bilirubin Urine Neg (Negative); Blood Urine Neg (Negative); Glucose Urine UA Norm (Normal); Ketones Urine Negative (Negative); Leukocyte Esterase Urine 1+ (Negative); Nitrate Urine Negative (Negative); Protein Urine Neg (Negative); Urine Appearance Clear (CLEAR); Urine Color Yellow (Yellow); Urobilinogen Urine Norm (Negative); pH Urine 6 (5-7)
[2023-06-27 09:51] VITALS: BP 200/100
[2023-06-27 10:11] LABS: Add Urine Culture? No; Bacteria Urine TRACE /hpf; Mucus Urine 1+ /hpf; Squamous Epithelial Cell Urine 0-4 /hpf (0-5)
[2023-07-06 09:49] VITALS: BP 162/92; PULSE 63; RESP 16; TEMP 36.4; O2SAT 95
[2023-07-06 10:07] VITALS: BMI 18.1
[2023-07-06] MEDS: BEVACIZUMAB AWWB IV (10:25)
[2023-07-06] MEDS: SODIUM CHLORIDE 0.9% IV (10:25)
[2023-07-06] MEDS: sodium chloride 0.9% 250 ML 75 ML IV (10:28)
[2023-07-06 11:49] VITALS: BP 176/93; PULSE 64; RESP 16; TEMP 36.6; O2SAT 92
== END 2023-07-12 23:59 | disposition home or self-care (01) ==
PROVIDERS: PCP Family Medicine; Visit Provider Internal Medicine Medical Oncology
DX: C79.51 Secondary malignant neoplasm of bone (principal); Z51.11 Encounter for antineoplastic chemotherapy; Z53.9 Procedure and treatment not carried out, unspecified reason
CPT/HCPCS: 80053; 81001; 85025; 96413; 99214; J1642; J7050; Q5107

== ENCOUNTER 2023-07-11 12:32 | Outpatient (CLI) | payer MEDICARE, SELFPAY ==
--- NOTE | 2023-07-11 13:00 | PETR_ITS ---
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 Provided history of chemotherapy last week. LABS AND CLINICAL REPORTS: Glucose: 104 mg/dl Treatment strategy for malignancy (PET staging): Restaging (PS) TECHNIQUE: Imaging protocol: Following at least four-hour fasting and following the injection of radiopharmaceutical, low dose CT images were obtained. Then, PET images were obtained. Attenuation corrected images were constructed using the CT scan. Fused images of PET and CT were reviewed. The standardized uptake values (SUV) reported below are maximum values within a region of interest, expressed in gm/ml. Exam includes orbital meatal line to mid-thigh. Radiopharmaceutical: 12.92 mCi F-18 FDG (Fluorodeoxyglucose), IV. Time of imaging post radiopharmaceutical administration: 1 hour Injection site: Right antecubital COMPARISON: CT neck w con* [id number] 11/06/2022 5:32 PM, CT abdomen and pelvis 10/13/2022, MRI lumbar spine 11/29/2022 FINDINGS: Limitations: Streak artifact related to the patient's arms; mild motion artifact. Tubes, catheters and devices: A right internal jugular central venous port catheter terminates in the right atrium. Brain: Visualized brain has normal physiologic uptake. Paranasal sinuses: There is non radiotracer avid mild mucosal thickening of the frontal sinus, ethmoid sinuses and right maxillary sinus consistent with benign chronic sinusitis. There appear to be postoperative changes involving the medial blanton of both maxillary sinuses. Pharynx: No abnormal uptake. Larynx: No abnormal uptake. Thyroid: Elevated uptake is identified in the thyroid gland, SUV max 3.4 on the right and 3.0 on the left. A low-density nodule in the right thyroid lobe is suspected although assessment is limited by streak artifact. This nodule measures approximately 1.6 cm in diameter on series 3, image 86. Lungs, pleura and trachea: No abnormal uptake. Mild biapical pleural scarring is noted. Bilateral calcified granulomas are noted. Heart: Normal physiologic uptake. Mediastinal space: No abnormal uptake. Liver: No abnormal uptake. Gallbladder and bile ducts: No abnormal uptake. Pancreas: No abnormal uptake. Spleen: No abnormal uptake. Calcified granulomas in the spleen are present. Adrenal glands: No abnormal uptake. Kidneys and ureters: Normal physiologic uptake. Stomach and bowel: No abnormal uptake. Intraperitoneal and retroperitoneal spaces: A retroperitoneal periaortic rounded soft tissue density nodule or lymph node measuring approximately 8 mm adjacent to the anterior aspect of the aorta on series 3, image 174 is radiotracer avid, SUV max 3.5. This does not appear to have been present on the prior CT of 10/13/2022. Assessment of this region is limited by streak artifact. Reproductive: No abnormal uptake. The uterus is surgically absent. Vasculature: No abnormal uptake. Atherosclerotic changes are noted. Lymph nodes: Please refer to intraperitoneal and retroperitoneal spaces above. Bones/joints: No abnormal uptake in the visualized axial and appendicular skeleton. Mild degenerative changes in the spine are present. There is moderate curvature of the lumbar spine convex to the left.The bones appear demineralized. Previously noted abnormal soft tissue density in the right L5-S1 neural foramen appears similar to the prior CT measuring approximately 2.9 x 1.7 cm in the axial plane on series 3, image 196 without elevated uptake. Soft tissues: No abnormal uptake in the visualized head, neck, chest, abdomen, pelvis, and extremities. A previously noted cystic left supraclavicular mass is no longer identified. No abnormal uptake in this region. METRICS: Mediastinal blood pool: SUV max 2.0 [facility] SUB[facility] [id number] IMPRESSION: 1. A previously noted cystic left supraclavicular mass on the CT neck of 11/10/2022 is no longer identified with no evidence of abnormal uptake in this region. 2. A new appearing soft tissue density nodule or lymph node anterior to the mid abdominal aorta is present with elevated uptake (SUV max 3.5) concerning for possible malignancy. 3. Uptake in the thyroid gland is noted, with the diffuse appearance favoring a benign etiology such as thyroiditis rather than malignancy. A right-sided thyroid nodule is also noted. Correlation with thyroid ultrasound may be useful for further assessment if this has not been performed. 4. Persistent abnormal soft tissue density in the right L5-S1 neural foramina, similar to the CT of 10/13/2022 without elevated uptake favoring a benign etiology. 5. Additional nonurgent findings as detailed above.
== END 2023-07-11 12:33 | disposition home or self-care (01) ==
LOC: RAD 12:33
PROVIDERS: PCP Family Medicine; Visit Provider Internal Medicine Medical Oncology
DX: C77.0 Secondary and unspecified malignant neoplasm of lymph nodes of head, face and neck (principal); C79.51 Secondary malignant neoplasm of bone; R93.89 Abnormal findings on diagnostic imaging of other specified body structures; Z85.42 Personal history of malignant neoplasm of other parts of uterus; Z92.21 Personal history of antineoplastic chemotherapy
CPT/HCPCS: 78815; A9552

== ENCOUNTER → 2023-07-12 09:19 | Outpatient (BNVA) | payer MEDICARE, SELFPAY | PROVIDERS: PCP Family Medicine; Visit Provider Specialist | DX: G62.9 Polyneuropathy, unspecified (principal); R29.90 Unspecified symptoms and signs involving the nervous system; G62.0 Drug-induced polyneuropathy; E87.1 Hypo-osmolality and hyponatremia; M53.86 Other specified dorsopathies, lumbar region; M54.16 Radiculopathy, lumbar region | CPT/HCPCS: 36415; 82607; 82652; 82746; 84439; 84443; 85651; 86160; 86162; 86235; 86255; 86376; 99205 ==

== ENCOUNTER 2023-07-27 08:10 | Oncology outpatient (recurring) (ONCR) | payer MEDICARE, SELFPAY ==
[2023-07-27 08:32] LABS: Basophils % 0.8 %; Eosinophils # 0.2 10^3/uL (0.0-0.8); Eosinophils % 4.3 %; Hematocrit 32.8 % (36-47); Lymphocytes # 0.9 10^3/uL (0.8-4.8); Lymphocytes % 18.3 %; Mean Corpuscular HGB Conc 33.8 g/dL (30-55); Mean Corpuscular Hemoglobin 32.4 pg (27-33); Mean Corpuscular Volume 95.6 fl (85-98); Mean Platelet Volume 8.6 fL (7.4-10.4); Monocytes # 0.4 10^3/uL (0.2-0.9); Monocytes % 8.1 %; Neutrophils # 3.48 10^3/uL (1.8-7.7); Neutrophils % 68.3 %; Nucleated Red Blood Cells % 0 %; Platelet Count 221 10^3/cmm (157-399); Red Blood Count 3.43 10^6/uL (3.85-5.65); Red Cell Distribution Width 13.3 % (12.1-15.1); White Blood Count 5.09 10^3/uL (3.29-11.43)
[2023-07-27 08:48] LABS: Alanine Aminotransferase 15 U/L (0-33); Albumin Level 4.1 g/dL (3.5-5.2); Alkaline Phosphatase 70 U/L (35-105); Anion Gap 14.7 (5-19); Aspartate Amino Transferase 21 U/L (0-32); Blood Urea Nitrogen 9 mg/dL (8-23); Calcium 8.8 mg/dL (8.5-10.5); Carbon Dioxide 25 mmol/L (22-29); Chloride 96 mmol/L (98-107); Globulin 2.7 g/dL (1.3-4.6); Glucose 117 mg/dL (65-115); Osmolality Calculated 272 mOsm/kg (285-295); Potassium 4.7 mmol/L (3.5-5.1); Sodium 131 mmol/L (136-145); Total Bilirubin 0.3 mg/dL (0.15-1.2); Total Protein 6.8 g/dL (6.6-8.7)
[2023-07-27] MEDS: sodium chloride 0.9% 250 ML 75 ML IV (10:13)
[2023-07-27] MEDS: BEVACIZUMAB AWWB IV (10:14)
[2023-07-27] MEDS: SODIUM CHLORIDE 0.9% IV (10:14)
[2023-07-27 11:00] VITALS: BP 164/82; PULSE 65; RESP 16; TEMP 36.7
== END 2023-08-10 23:59 | disposition home or self-care (01) ==
PROVIDERS: PCP Family Medicine; Visit Provider Internal Medicine Medical Oncology
DX: Z51.11 Encounter for antineoplastic chemotherapy (principal); C79.51 Secondary malignant neoplasm of bone; Z79.899 Other long term (current) drug therapy; Z85.42 Personal history of malignant neoplasm of other parts of uterus; Z90.710 Acquired absence of both cervix and uterus; Z90.79 Acquired absence of other genital organ(s); Z90.722 Acquired absence of ovaries, bilateral
CPT/HCPCS: 80053; 85025; 96413; 99214; J1642; J7050; Q5107

== ENCOUNTER → 2023-08-01 10:02 | Outpatient (BNVA) | payer MEDICARE, SELFPAY | PROVIDERS: PCP Family Medicine; Visit Provider Anesthesiology Pain Medicine | DX: M48.062 Spinal stenosis, lumbar region with neurogenic claudication (principal); M54.16 Radiculopathy, lumbar region; M51.36 Other intervertebral disc degeneration, lumbar region; M53.86 Other specified dorsopathies, lumbar region; M47.816 Spondylosis without myelopathy or radiculopathy, lumbar region | CPT/HCPCS: 99215 ==

== ENCOUNTER 2023-08-11 12:24 | Outpatient (CLI) | payer MEDICARE, SELFPAY ==
[2023-08-11] MEDS: iohexol 350 mg/mL 500 mL Btl (per mL) PO (12:54)
--- NOTE | 2023-08-11 13:30 | CT_ITS ---
WS: [id number] CT CHEST, ABDOMEN AND PELVIS NONCONTRAST HISTORY: Restaging, endometrial cancer. TECHNIQUE: Contiguous 5 mm axial imaging performed through the chest, abdomen and pelvis without IV c ontrast, oral contrast has been provided. Coronal and sagittal reformats chest. Coronal and sagittal reformats through the abdomen and pelvis. All CT scans at [facility] use at least one of thes e dose optimization techniques: automated exposure control; mA and/or kV adjustment per patient size (includes targeted exams where dose is matched to clinical indication); or iterative reconstruction. CONTRAST: None DLP: 445.58 mGy.cm COMPARISON: CT abdomen and pelvis 10/13/2022, chest CT 05/19/2016, PET/CT 07/11/[address]: Hyperexpanded lungs from emphysema. Benign RIGHT perifissural nodule. There is an additiona l micronodule LEFT lower lobe, image 41 series 4. No mass. No pneumonia. Moderate atherosclerosis and ectasia aorta. Mildly dilated pulmonary artery. Without IV contrast the mediastinum and supra clavic ular regions are very difficult to visualize adequately to exclude small lymph nodes. No adenopathy w as identified on the recent PET/CT. Heart is normal size. Small hiatal hernia. Right-sided Mediport. Increase in thoracic kyphosis. Mild heterogeneity within the thyroid. Thyroid appears slightly nodula r. Abdomen CT: Normal size liver and spleen. Negative gallbladder. No adrenal mass identified. Adrenal g lands are very poorly visualized. Poor visualization of the pancreas without contrast. Bile duct is n ot dilated. Pancreatic duct appears normal size. No renal obstruction. Bilateral extrarenal pelves. M ild atherosclerosis aorta. No GI tract obstruction. Very little opacification of the GI tract due to poor oral contrast. Lack of IV contrast also decrease in the sensitivity and specificity of this examination. There is diffuse f ecal retention in constipation. PET/CT positive nodule anterior to the mid aorta is identified measuring 10 x 7 mm. No additional lym ph nodes. Pelvic CT: No free fluid or adenopathy. Urinary bladder is well distended. There are a few lymph node s in the inguinal regions which were negative on the recent PET/CT. These lymph nodes are not enlarge d. There is also a loop of small bowel extending into the RIGHT inguinal canal. No significant hernia tion and no obstruction. Prior hysterectomy. Reidentified is the previously described soft tissue mass in the RIGHT foramen and extraforaminal loc ation at L5-S1. This mass has been previously described and also negative on prior PET/CT indicating a benign mass. IMPRESSION: 1. PET/CT positive lymph node anterior to the mid abdominal aorta is reidentified measuring 10 x 7 m m. 2. No additional lymph nodes are identified within the chest, abdomen or pelvis. The lack of IV cont rast and paucity of fat decreases the sensitivity of this examination. 3. Chronic emphysema. 4. RIGHT perifissural and LEFT lower lobe tiny nodules. These were not positive on PET/CT. By CT the se are probably benign. 5. Diffuse constipation. 6. Prior hysterectomy. 7. RIGHT inguinal hernia. Small bowel at the orifice of the hernia but no obstruction.
== END 2023-08-11 12:25 | disposition home or self-care (01) ==
PROVIDERS: PCP Family Medicine; Visit Provider Nurse Practitioner Family
DX: C54.1 Malignant neoplasm of endometrium (principal)
CPT/HCPCS: 71250; 74176; Q9967

== ENCOUNTER → 2023-08-16 07:42 | Outpatient (BNVA) | payer MEDICARE, SELFPAY | PROVIDERS: PCP Family Medicine; Visit Provider Specialist | DX: G62.0 Drug-induced polyneuropathy (principal); R29.90 Unspecified symptoms and signs involving the nervous system; E87.1 Hypo-osmolality and hyponatremia; M54.16 Radiculopathy, lumbar region; M62.838 Other muscle spasm; M54.40 Lumbago with sciatica, unspecified side | CPT/HCPCS: 99214 ==

== ENCOUNTER → 2023-08-30 10:25 | Outpatient (BNVA) | payer MEDICARE, SELFPAY | PROVIDERS: PCP Family Medicine; Visit Provider Anesthesiology Pain Medicine | DX: C79.51 Secondary malignant neoplasm of bone (principal); C77.0 Secondary and unspecified malignant neoplasm of lymph nodes of head, face and neck; M48.062 Spinal stenosis, lumbar region with neurogenic claudication; C54.1 Malignant neoplasm of endometrium; M54.16 Radiculopathy, lumbar region; M51.36 Other intervertebral disc degeneration, lumbar region; M53.86 Other specified dorsopathies, lumbar region; M47.816 Spondylosis without myelopathy or radiculopathy, lumbar region; M48.061 Spinal stenosis, lumbar region without neurogenic claudication | CPT/HCPCS: 99214 ==

== ENCOUNTER 2023-09-07 09:30 | Oncology outpatient (recurring) (ONCR) | payer MEDICARE, SELFPAY ==
[2023-08-17 08:01] LABS: Basophils % 0.7 %; Eosinophils # 0.2 10^3/uL (0.0-0.8); Eosinophils % 5.1 %; Hematocrit 32.9 % (36-47); Lymphocytes % 23.5 %; Mean Corpuscular HGB Conc 33.4 g/dL (30-55); Mean Corpuscular Hemoglobin 31.4 pg (27-33); Mean Platelet Volume 8.4 fL (7.4-10.4); Monocytes # 0.3 10^3/uL (0.2-0.9); Monocytes % 7.3 %; Neutrophils # 2.61 10^3/uL (1.8-7.7); Neutrophils % 63.4 %; Nucleated Red Blood Cells % 0 %; Platelet Count 284 10^3/cmm (157-399); Red Cell Distribution Width 12.7 % (12.1-15.1); White Blood Count 4.12 10^3/uL (3.29-11.43)
[2023-08-17 08:26] LABS: Alanine Aminotransferase 17 U/L (0-33); Albumin Level 3.8 g/dL (3.5-5.2); Alkaline Phosphatase 61 U/L (35-105); Anion Gap 13.6 (5-19); Aspartate Amino Transferase 24 U/L (0-32); Blood Urea Nitrogen 15 mg/dL (8-23); Calcium 8.8 mg/dL (8.5-10.5); Carbon Dioxide 27 mmol/L (22-29); Chloride 95 mmol/L (98-107); Globulin 3.1 g/dL (1.3-4.6); Glucose 76 mg/dL (65-115); Osmolality Calculated 272 mOsm/kg (285-295); Potassium 4.6 mmol/L (3.5-5.1); Sodium 131 mmol/L (136-145); Total Bilirubin 0.2 mg/dL (0.15-1.2); Total Protein 6.9 g/dL (6.6-8.7)
[2023-08-17] MEDS: sodium chloride 0.9% 250 ML 75 ML IV (10:02)
[2023-08-17] MEDS: BEVACIZUMAB AWWB IV (10:03)
[2023-08-17] MEDS: SODIUM CHLORIDE 0.9% IV (10:03)
[2023-08-17 10:38] VITALS: BP 180/100; PULSE 65; TEMP 36.7
[2023-08-17 10:38] LABS: Bilirubin Urine Neg (Negative); Blood Urine Neg (Negative); Glucose Urine UA Norm (Normal); Ketones Urine Negative (Negative); Leukocyte Esterase Urine Negative (Negative); Nitrate Urine Negative (Negative); Protein Urine Neg (Negative); Specific Gravity, Urine 1.015 (1.005-1.030); Urine Appearance Clear (CLEAR); Urine Color Yellow (Yellow); Urobilinogen Urine Norm (Negative); pH Urine 8 (5-7)
[2023-08-17 11:21] LABS: Sulfosalicylic Acid Urine Negative (Negative)
[2023-08-17 11:27] LABS: Add Urine Culture? No; RBC Urine 0-4 /hpf (0-2); Renal Epithelial Cells Urine 0-4 /hpf; Squamous Epithelial Cell Urine 0-4 /hpf (0-5); Transitional Epi Cells Urine 0-4 /hpf; WBC Urine 0-4 /hpf (0-5)
[2023-09-07] MEDS: sodium chloride 0.9% 250 ML 75 ML IV (10:02)
[2023-09-07] MEDS: SODIUM CHLORIDE 0.9% IV (10:36)
[2023-09-07] MEDS: BEVACIZUMAB AWWB IV (10:36)
[2023-09-07 11:32] VITALS: BP 159/85; PULSE 60; RESP 16; O2SAT 98
== END 2023-09-07 23:59 | disposition home or self-care (01) ==
PROVIDERS: Nurse Practitioner Family; PCP Family Medicine; Visit Provider Internal Medicine Medical Oncology
DX: Z53.9 Procedure and treatment not carried out, unspecified reason (principal); Z51.11 Encounter for antineoplastic chemotherapy; C79.51 Secondary malignant neoplasm of bone
CPT/HCPCS: 80053; 81001; 85025; 96413; 99214; J1642; J7050; Q5107

== ENCOUNTER → 2023-09-14 08:28 | Outpatient (BNVA) | payer MEDICARE, SELFPAY | PROVIDERS: PCP Family Medicine; Visit Provider Specialist | DX: M62.838 Other muscle spasm (principal); G62.0 Drug-induced polyneuropathy; M53.86 Other specified dorsopathies, lumbar region; M51.36 Other intervertebral disc degeneration, lumbar region; M54.16 Radiculopathy, lumbar region; M48.061 Spinal stenosis, lumbar region without neurogenic claudication; M47.816 Spondylosis without myelopathy or radiculopathy, lumbar region; M48.062 Spinal stenosis, lumbar region with neurogenic claudication; M54.31 Sciatica, right side | CPT/HCPCS: 64642; J0585 ==

== ENCOUNTER 2023-09-28 07:18 | Oncology outpatient (recurring) (ONCR) | payer MEDICARE, SELFPAY ==
[2023-09-28 08:25] LABS: Eosinophils # 0.2 10^3/uL (0.0-0.8); Eosinophils % 4.2 %; Hematocrit 33.3 % (36-47); Lymphocytes # 1.2 10^3/uL (0.8-4.8); Lymphocytes % 28.4 %; Mean Corpuscular HGB Conc 34.2 g/dL (30-55); Mean Corpuscular Hemoglobin 31.6 pg (27-33); Mean Corpuscular Volume 92.2 fl (85-98); Mean Platelet Volume 8.4 fL (7.4-10.4); Monocytes # 0.4 10^3/uL (0.2-0.9); Monocytes % 9.1 %; Neutrophils # 2.31 10^3/uL (1.8-7.7); Neutrophils % 57.1 %; Nucleated Red Blood Cells % 0 %; Platelet Count 280 10^3/cmm (157-399); Red Blood Count 3.61 10^6/uL (3.85-5.65); Red Cell Distribution Width 12.7 % (12.1-15.1); White Blood Count 4.05 10^3/uL (3.29-11.43)
[2023-09-28 08:30] LABS: Urine Appearance Clear (CLEAR); Urine Color Yellow (Yellow); pH Urine 5 (5-7)
[2023-09-28 08:31] LABS: Bilirubin Urine Neg (Negative); Blood Urine Neg (Negative); Glucose Urine UA Norm (Normal); Ketones Urine Negative (Negative); Leukocyte Esterase Urine Negative (Negative); Nitrate Urine Negative (Negative); Protein Urine Neg (Negative); Urobilinogen Urine Norm (Negative)
[2023-09-28 08:32] LABS: Add Urine Culture? No; Renal Epithelial Cells Urine 0-4 /hpf; WBC Urine 0-4 /hpf (0-5)
[2023-09-28 08:34] LABS: Alanine Aminotransferase 16 U/L (0-33); Albumin Level 3.9 g/dL (3.5-5.2); Alkaline Phosphatase 63 U/L (35-105); Anion Gap 11.3 (5-19); Aspartate Amino Transferase 19 U/L (0-32); Blood Urea Nitrogen 9 mg/dL (8-23); Carbon Dioxide 25 mmol/L (22-29); Chloride 96 mmol/L (98-107); Globulin 3.1 g/dL (1.3-4.6); Glucose 94 mg/dL (65-115); Osmolality Calculated 264 mOsm/kg (285-295); Potassium 4.3 mmol/L (3.5-5.1); Sodium 128 mmol/L (136-145); Total Bilirubin 0.3 mg/dL (0.15-1.2)
[2023-09-28] MEDS: sodium chloride 0.9% 250 ML 75 ML IV (10:03)
[2023-09-28] MEDS: BEVACIZUMAB AWWB IV (10:16)
[2023-09-28] MEDS: SODIUM CHLORIDE 0.9% IV (10:16)
[2023-09-28 11:05] VITALS: BP 169/98; PULSE 69; RESP 18; TEMP 36.6; O2SAT 98
== END 2023-10-10 23:59 | disposition home or self-care (01) ==
PROVIDERS: PCP Family Medicine; Visit Provider Internal Medicine Medical Oncology
DX: C79.51 Secondary malignant neoplasm of bone (principal); Z95.828 Presence of other vascular implants and grafts; C55 Malignant neoplasm of uterus, part unspecified; C54.1 Malignant neoplasm of endometrium; Z53.9 Procedure and treatment not carried out, unspecified reason
CPT/HCPCS: 80053; 81001; 85025; 96413; 99214; J7050; Q5107

== ENCOUNTER 2023-10-26 08:00 | Oncology outpatient (recurring) (ONCR) | payer MEDICARE, SELFPAY ==
[2023-10-19 10:18] LABS: Basophils % 0.7 %; Eosinophils # 0.2 10^3/uL (0.0-0.8); Eosinophils % 4.8 %; Hematocrit 31.9 % (36-47); Lymphocytes % 22.7 %; Mean Corpuscular HGB Conc 33.5 g/dL (30-55); Mean Corpuscular Hemoglobin 31.2 pg (27-33); Mean Platelet Volume 8.3 fL (7.4-10.4); Monocytes # 0.3 10^3/uL (0.2-0.9); Monocytes % 6.8 %; Neutrophils # 2.97 10^3/uL (1.8-7.7); Neutrophils % 64.8 %; Nucleated Red Blood Cells % 0 %; Platelet Count 214 10^3/cmm (157-399); Red Blood Count 3.43 10^6/uL (3.85-5.65); Red Cell Distribution Width 13.3 % (12.1-15.1); White Blood Count 4.58 10^3/uL (3.29-11.43)
[2023-10-19 10:35] LABS: Alanine Aminotransferase 20 U/L (0-33); Albumin Level 3.7 g/dL (3.5-5.2); Alkaline Phosphatase 63 U/L (35-105); Anion Gap 14.5 (5-19); Aspartate Amino Transferase 26 U/L (0-32); Blood Urea Nitrogen 8 mg/dL (8-23); Calcium 8.4 mg/dL (8.5-10.5); Carbon Dioxide 24 mmol/L (22-29); Chloride 100 mmol/L (98-107); Globulin 2.8 g/dL (1.3-4.6); Glucose 119 mg/dL (65-115); Osmolality Calculated 277 mOsm/kg (285-295); Potassium 4.5 mmol/L (3.5-5.1); Sodium 134 mmol/L (136-145); Total Bilirubin 0.3 mg/dL (0.15-1.2); Total Protein 6.5 g/dL (6.6-8.7)
[2023-10-19 11:24] LABS: C.Diff PCR (Lab) NEGATIVE (Negative)
[2023-10-26 08:06] LABS: Basophils # 0.1 10^3/uL (0.0-0.1); Basophils % 1.3 %; Eosinophils # 0.4 10^3/uL (0.0-0.8); Eosinophils % 7.7 %; Hematocrit 33.4 % (36-47); Lymphocytes # 1.2 10^3/uL (0.8-4.8); Lymphocytes % 25.8 %; Mean Corpuscular HGB Conc 32.9 g/dL (30-55); Mean Corpuscular Hemoglobin 30.6 pg (27-33); Mean Platelet Volume 8.4 fL (7.4-10.4); Monocytes # 0.4 10^3/uL (0.2-0.9); Monocytes % 7.5 %; Neutrophils % 57.5 %; Nucleated Red Blood Cells % 0 %; Platelet Count 256 10^3/cmm (157-399); Red Blood Count 3.59 10^6/uL (3.85-5.65); Red Cell Distribution Width 13.6 % (12.1-15.1); White Blood Count 4.69 10^3/uL (3.29-11.43)
[2023-10-26 08:22] LABS: Alanine Aminotransferase 15 U/L (0-33); Albumin Level 3.9 g/dL (3.5-5.2); Alkaline Phosphatase 65 U/L (35-105); Aspartate Amino Transferase 25 U/L (0-32); Blood Urea Nitrogen 8 mg/dL (8-23); Calcium 8.9 mg/dL (8.5-10.5); Carbon Dioxide 26 mmol/L (22-29); Chloride 94 mmol/L (98-107); Glucose 109 mg/dL (65-115); Osmolality Calculated 263 mOsm/kg (285-295); Sodium 127 mmol/L (136-145); Total Bilirubin 0.3 mg/dL (0.15-1.2); Total Protein 6.9 g/dL (6.6-8.7)
[2023-10-26] MEDS: sodium chloride 0.9% 250 ML 75 ML IV (10:05)
[2023-10-26] MEDS: SODIUM CHLORIDE 0.9% IV (10:12)
[2023-10-26] MEDS: BEVACIZUMAB AWWB IV (10:12)
[2023-10-26 10:53] VITALS: BP 158/90; PULSE 64; RESP 16; TEMP 36.6; O2SAT 96
== END 2023-11-10 23:59 | disposition home or self-care (01) ==
PROVIDERS: Nurse Practitioner Family; PCP Family Medicine; Visit Provider Internal Medicine Medical Oncology
DX: C79.51 Secondary malignant neoplasm of bone (principal); Z95.828 Presence of other vascular implants and grafts; C55 Malignant neoplasm of uterus, part unspecified; C54.1 Malignant neoplasm of endometrium; Z53.9 Procedure and treatment not carried out, unspecified reason; Z51.12 Encounter for antineoplastic immunotherapy; Z79.899 Other long term (current) drug therapy
CPT/HCPCS: 36415; 36591; 80053; 85025; 87177; 87209; 87493; 96413; 99214; J7050; Q5107

== ENCOUNTER → 2023-10-31 13:43 | Outpatient (BNVA) | payer MEDICARE, SELFPAY | PROVIDERS: PCP Family Medicine; Visit Provider Family Medicine | DX: N39.0 Urinary tract infection, site not specified (principal); C54.1 Malignant neoplasm of endometrium | CPT/HCPCS: 81000; 87077; 87086; 87184 ==

== ENCOUNTER 2023-11-16 10:18 | Oncology outpatient (recurring) (ONCR) | payer MEDICARE, SELFPAY ==
[2023-11-16 11:14] LABS: Basophils % 0.7 %; Eosinophils # 0.5 10^3/uL (0.0-0.8); Eosinophils % 8.9 %; Hematocrit 33.8 % (36-47); Lymphocytes # 1.2 10^3/uL (0.8-4.8); Lymphocytes % 21.6 %; Mean Corpuscular HGB Conc 33.7 g/dL (30-55); Mean Corpuscular Hemoglobin 31.8 pg (27-33); Mean Corpuscular Volume 94.2 fl (85-98); Mean Platelet Volume 8.4 fL (7.4-10.4); Monocytes # 0.4 10^3/uL (0.2-0.9); Monocytes % 7.2 %; Neutrophils # 3.32 10^3/uL (1.8-7.7); Neutrophils % 61.4 %; Nucleated Red Blood Cells % 0 %; Platelet Count 255 10^3/cmm (157-399); Red Blood Count 3.59 10^6/uL (3.85-5.65); Red Cell Distribution Width 13.2 % (12.1-15.1); White Blood Count 5.41 10^3/uL (3.29-11.43)
[2023-11-16 11:23] LABS: Alanine Aminotransferase 15 U/L (0-33); Albumin Level 3.9 g/dL (3.5-5.2); Alkaline Phosphatase 53 U/L (35-105); Anion Gap 15.6 (5-19); Aspartate Amino Transferase 22 U/L (0-32); Blood Urea Nitrogen 8 mg/dL (8-23); Calcium 8.8 mg/dL (8.5-10.5); Carbon Dioxide 24 mmol/L (22-29); Chloride 95 mmol/L (98-107); Globulin 2.9 g/dL (1.3-4.6); Glucose 108 mg/dL (65-115); Osmolality Calculated 269 mOsm/kg (285-295); Potassium 4.6 mmol/L (3.5-5.1); Sodium 130 mmol/L (136-145); Total Bilirubin 0.3 mg/dL (0.15-1.2); Total Protein 6.8 g/dL (6.6-8.7)
[2023-11-16] MEDS: SODIUM CHLORIDE 0.9% IV (14:13)
[2023-11-16] MEDS: BEVACIZUMAB AWWB IV (14:13)
[2023-11-16 15:10] VITALS: BP 155/95; TEMP 35.7
== END 2023-12-10 23:59 | disposition home or self-care (01) ==
PROVIDERS: Nurse Practitioner Family; PCP Family Medicine; Visit Provider Internal Medicine Medical Oncology
DX: Z51.12 Encounter for antineoplastic immunotherapy (principal); C79.51 Secondary malignant neoplasm of bone; Z95.828 Presence of other vascular implants and grafts; C55 Malignant neoplasm of uterus, part unspecified; C54.1 Malignant neoplasm of endometrium; Z79.899 Other long term (current) drug therapy
CPT/HCPCS: 80053; 85025; 96413; 99214; Q5107

== ENCOUNTER 2023-12-11 08:48 | Oncology outpatient (recurring) (ONCR) | payer MEDICARE, SELFPAY ==
[2023-12-11 09:25] LABS: Basophils % 0.7 %; Eosinophils # 0.5 10^3/uL (0.0-0.8); Eosinophils % 8.7 %; Hematocrit 31.2 % (36-47); Lymphocytes # 1.3 10^3/uL (0.8-4.8); Lymphocytes % 22.5 %; Mean Corpuscular Hemoglobin 30.9 pg (27-33); Mean Corpuscular Volume 93.7 fl (85-98); Mean Platelet Volume 8.3 fL (7.4-10.4); Monocytes # 0.4 10^3/uL (0.2-0.9); Monocytes % 6.2 %; Neutrophils # 3.49 10^3/uL (1.8-7.7); Neutrophils % 61.9 %; Nucleated Red Blood Cells % 0 %; Platelet Count 237 10^3/cmm (157-399); Red Blood Count 3.33 10^6/uL (3.85-5.65); Red Cell Distribution Width 13.3 % (12.1-15.1); White Blood Count 5.64 10^3/uL (3.29-11.43)
[2023-12-11 09:43] LABS: Alanine Aminotransferase 17 U/L (0-33); Albumin Level 3.9 g/dL (3.5-5.2); Alkaline Phosphatase 51 U/L (35-105); Anion Gap 12.8 (5-19); Aspartate Amino Transferase 23 U/L (0-32); Blood Urea Nitrogen 14 mg/dL (8-23); Calcium 8.8 mg/dL (8.5-10.5); Carbon Dioxide 25 mmol/L (22-29); Chloride 95 mmol/L (98-107); Globulin 2.3 g/dL (1.3-4.6); Glucose 106 mg/dL (65-115); Osmolality Calculated 267 mOsm/kg (285-295); Potassium 4.8 mmol/L (3.5-5.1); Sodium 128 mmol/L (136-145); Total Bilirubin 0.2 mg/dL (0.15-1.2); Total Protein 6.2 g/dL (6.6-8.7)
[2023-12-11] MEDS: SODIUM CHLORIDE 0.9% IV (11:47)
[2023-12-11] MEDS: sodium chloride 0.9% 250 ML 75 ML IV (11:47)
[2023-12-11] MEDS: BEVACIZUMAB AWWB IV (11:47)
[2023-12-11 12:47] VITALS: BP 131/74; PULSE 76; RESP 18
[2023-12-21] MEDS: iohexol 350 mg/mL 500 mL Btl (per mL) PO (11:38)
--- NOTE | 2023-12-21 12:00 | CTR_ITS ---
PROCEDURE INFORMATION: Exam: CT Chest With Contrast; Diagnostic Exam date and time: 12/21/2023 12:10 PM Age: 73 years old Clinical indication: Condition or disease; Other: Endometrial cancer; Prior surgery; Surgery date: 6+ months; Surgery type: Hyst, port, neck, kidney stone removal, lumbar; Additional info: Endometrial cancer restaging TECHNIQUE: Imaging protocol: Diagnostic computed tomography of the chest with contrast. Radiation optimization: All CT scans at this facility use at least one of these dose optimization techniques: automated exposure control; mA and/or kV adjustment per patient size (includes targeted exams where dose is matched to clinical indication); or iterative reconstruction. Contrast material: OMNI 350; Contrast volume: 100 ml; Contrast route: INTRAVENOUS (IV); COMPARISON: [place] [id number] 08/11/2023 1:52 PM RADIATION DOSE METRICS: Total DLP (mGy-cm): 466.97 FINDINGS: Tubes, catheters and devices: Right anterior chest wall infusion port with its tip terminating in the right atrium. Thyroid: Right hypodense thyroid nodule measuring 0.5 centimeters. Lungs: Central airways are patent, no distal bronchial wall thickening. No suspicious lung nodules. Pleural spaces: Unremarkable. No pneumothorax. No pleural effusion. Heart: Unremarkable. No cardiomegaly. No pericardial effusion. Coronary arteries: No significant coronary artery calcifications. Lymph nodes: Unremarkable. No enlarged lymph nodes. Vasculature: Thoracic abdominal aorta is normal size and shape. Bones/joints: Unremarkable. No acute fracture. Soft tissues: Unremarkable. COMMENTS: Consistent with the [employer]'s Incidental Findings Committee white paper (J Am Cobly Radiol 2015): In patients aged 35 years and older with an incidental thyroid nodule equal to or greater than 1.[address], MRI or extrathyroidal US, further evaluation with dedicated thyroid US is recommended for patients with normal life expectancy and without comorbidities. For smaller nodules without suspicious features, no further evaluation or follow up is recommended. PROCEDURE INFORMATION: Exam: CT Abdomen And Pelvis With Contrast Exam date and time: 12/21/2023 12:10 PM Age: 73 years old Clinical indication: Condition or disease; Other: Endometrial cancer; Prior surgery; Surgery date: 6+ months; Surgery type: Hyst, port, neck, kidney stone removal, lumbar; Additional info: Endometrial cancer restaging TECHNIQUE: Imaging protocol: Computed tomography of the abdomen and pelvis with contrast. Radiation optimization: All CT scans at this facility use at least one of these dose optimization techniques: automated exposure control; mA and/or kV adjustment per patient size (includes targeted exams where dose is matched to clinical indication); or iterative reconstruction. Contrast material: OMNI 350; Contrast volume: 100 ml; C density ontrast route: INTRAVENOUS (IV); COMPARISON: [place] [id number] 08/11/2023 1:52 PM RADIATION DOSE METRICS: Total DLP (mGy-cm): 466.97 FINDINGS: Liver: Liver is normal size and contour. No suspicious liver lesions. Gallbladder and biliary ducts: Normal. No calcified stones. No ductal dilation. Pancreas: Normal. No ductal dilation. Spleen: Marked spleen calcifications. Adrenal glands: Normal. No mass. Kidneys and ureters: Normal. No hydronephrosis. Stomach and bowel: Unremarkable. No obstruction. No mucosal thickening. Appendix: No evidence of appendicitis. Intraperitoneal space: Unremarkable. No free air. No significant fluid collection. Vasculature: Hepatic veins, and portal vein are patent. SMV is patent. Abdominal aorta is normal size and shape, with minimal atherosclerotic calcified and noncalcified plaques. Bilateral iliac arteries are patent. Proximal celiac and SMA are patent. Anterior to the abdominal aorta there is a soft tissue density measuring 1 x 1.4 centimeters (series 5, image 23), new when compared to last CT with IV contrast dated 10/13/2022, and unchanged when compared to recent PET-CT. Lymph nodes: Unremarkable. No enlarged lymph nodes. Urinary bladder: Unremarkable as visualized. Reproductive: Unremarkable as visualized. Bones/joints: Unremarkable. No acute fracture. Soft tissues: Unremarkable. CT/CT chest abdpel w/*[id number] IMPRESSION: 1. No evidence of distal metastases and chest. 2. Right hypodense thyroid nodule measuring 0.5 centimeters. IMPRESSION: Stable since 07/11/2023; new when compared to 10/13/2022 soft tissue density or lymph node that abuts and anteriorly displaces the splenic vein anterior to the abdominal aorta. Findings are concerning for malignancy; close attention is recommended.
[2023-12-21] MEDS: iohexol 350 mg/mL 500 mL Btl (per mL) IV (12:15)
== END 2023-12-21 23:59 | disposition home or self-care (01) ==
PROVIDERS: Nurse Practitioner Family; PCP Family Medicine; Visit Provider Internal Medicine Medical Oncology
DX: C54.1 Malignant neoplasm of endometrium (principal); Z53.9 Procedure and treatment not carried out, unspecified reason; E04.1 Nontoxic single thyroid nodule; R93.5 Abnormal findings on diagnostic imaging of other abdominal regions, including retroperitoneum
CPT/HCPCS: 71260; 74177; 80053; 85025; 96413; 99214; J7050; Q5107; Q9967

== ENCOUNTER 2023-12-21 08:49 | Outpatient (CLI) | payer MEDICARE, SELFPAY | END 2023-12-21 08:50 | PROVIDERS: PCP Family Medicine; Visit Provider Specialist | DX: M62.838 Other muscle spasm (principal); M54.31 Sciatica, right side; R03.0 Elevated blood-pressure reading, without diagnosis of hypertension | CPT/HCPCS: 64642; J0585 ==

== ENCOUNTER 2024-01-01 08:49 | Oncology outpatient (recurring) (ONCR) | payer MEDICARE, SELFPAY ==
[2024-01-01 10:10] VITALS: BP 180/95; PULSE 68; RESP 16; TEMP 36.4; O2SAT 96
[2024-01-01] MEDS: BEVACIZUMAB AWWB IV (10:36)
[2024-01-01] MEDS: sodium chloride 0.9% 250 ML 75 ML IV (10:36)
[2024-01-01] MEDS: SODIUM CHLORIDE 0.9% IV (10:36)
[2024-01-01 10:40] VITALS: BP 162/78
[2024-01-01 11:35] VITALS: BP 164/88; PULSE 67; RESP 16; TEMP 36.2; O2SAT 91
== END 2024-01-10 23:59 | disposition home or self-care (01) ==
PROVIDERS: PCP Family Medicine; Visit Provider Internal Medicine Medical Oncology
DX: C54.1 Malignant neoplasm of endometrium (principal); C79.51 Secondary malignant neoplasm of bone; Z51.12 Encounter for antineoplastic immunotherapy; Z79.899 Other long term (current) drug therapy
CPT/HCPCS: 96413; J7050; Q5107

== ENCOUNTER 2024-01-24 13:00 | Oncology outpatient (recurring) (ONCR) | payer MEDICARE, SELFPAY ==
[2024-01-22 08:28] LABS: Basophils # 0.1 10^3/uL (0.0-0.1); Eosinophils # 0.3 10^3/uL (0.0-0.8); Eosinophils % 6.5 %; Hematocrit 32.3 % (36-47); Lymphocytes # 1.4 10^3/uL (0.8-4.8); Lymphocytes % 28.1 %; Mean Corpuscular HGB Conc 33.1 g/dL (30-55); Mean Corpuscular Hemoglobin 31.4 pg (27-33); Mean Corpuscular Volume 94.7 fl (85-98); Mean Platelet Volume 8.4 fL (7.4-10.4); Monocytes # 0.4 10^3/uL (0.2-0.9); Monocytes % 7.7 %; Neutrophils # 2.87 10^3/uL (1.8-7.7); Neutrophils % 56.5 %; Nucleated Red Blood Cells % 0 %; Platelet Count 320 10^3/cmm (157-399); Red Blood Count 3.41 10^6/uL (3.85-5.65); Red Cell Distribution Width 13.2 % (12.1-15.1); White Blood Count 5.08 10^3/uL (3.29-11.43)
[2024-01-22 08:46] LABS: Alanine Aminotransferase 17 U/L (0-33); Alkaline Phosphatase 57 U/L (35-105); Anion Gap 15.5 (5-19); Aspartate Amino Transferase 22 U/L (0-32); Blood Urea Nitrogen 17 mg/dL (8-23); Calcium 8.9 mg/dL (8.5-10.5); Carbon Dioxide 24 mmol/L (22-29); Chloride 96 mmol/L (98-107); Globulin 2.4 g/dL (1.3-4.6); Glucose 143 mg/dL (65-115); Osmolality Calculated 276 mOsm/kg (285-295); Potassium 4.5 mmol/L (3.5-5.1); Sodium 131 mmol/L (136-145); Total Bilirubin 0.2 mg/dL (0.15-1.2); Total Protein 6.4 g/dL (6.6-8.7)
[2024-01-22 12:00] VITALS: BP 163/100; PULSE 67; RESP 16; TEMP 36.7
[2024-01-22] MEDS: sodium chloride 0.9% 250 ML 75 ML IV (12:01)
[2024-01-22] MEDS: BEVACIZUMAB AWWB IV (12:01)
[2024-01-22] MEDS: SODIUM CHLORIDE 0.9% IV (12:01)
[2024-01-22 13:00] VITALS: BP 176/93; PULSE 66; RESP 16; TEMP 36.6
--- NOTE | 2024-01-24 13:00 | MR_ITS ---
WS: [id number] MRI LUMBAR SPINE WITH AND WITHOUT CONTRAST HISTORY: restaging L5 metastasis COMPARISON: 06/14/2023, PET/CT 07/11/2023 TECHNIQUE: Sagittal and axial multisequence imaging is submitted. MultiHance 10 mL postcontrast. Mild LEFT curvature lumbar spine. Mild disc space narrowing and degeneration. No fractures or marrow edema. Conus terminates normally at L1-2 disc level. L1-L2: Normal. L2-L3: Mild annular disc bulging and facet arthritis. Mild foraminal narrowing. L3-L4: Diffuse annular disc bulging. Asymmetric facet joint arthritis on the RIGHT encroaching upon t he thecal sac and the nerve roots. Mild RIGHT subarticular recess encroachment on the traversing L4 n erve root. L4-L5: Diffuse annular disc bulging with facet and ligamentum flavum hypertrophy. RIGHT traversing L5 nerve root is larger than the LEFT. L5-S1: Mild disc bulging. There is increased low signal in the RIGHT foramen and extraforaminal which has been present on prior studies. This is of low signal on the T1 and T2 sequences and no obvious e nhancement. This may be scarring and fibrotic tissue from treatment. There is effacement of fat in th e RIGHT foramen. Severe stenosis RIGHT foramen. No metastatic disease to the discs or vertebral bodies. Reidentified is a soft tissue mass within the RIGHT L4-5 foramen which does not significantly enhance. This may be posttreatment scarring and fibr otic tissue. There is some very mild enhancement of the conus but similar findings were identified on prior study from 11/29/2022. Mild enhancement and prominence of several of the nerve roots in the RIG HT thecal sac most significant at L1-2 through the L4-5 level. MR/MR lumbar spine wo/w con [id number] IMPRESSION: 1. No metastatic disease to the lumbar vertebral bodies. 2. Reidentified is a soft tissue mass which does not significantly enhance wit hin the RIGHT L5-S1 foramen causing complete effacement of fat and encroachment upon the nerve root. 3. No new soft tissue masses. No new area of enhancement. 4. Mild RIGHT subarticular recess encroachment at L3-4. 5. There is mild enhancement of several of the nerve roots in the RIGHT thecal sac. May be neuritis. This would be an unusual location for metastatic disease from endometrial cancer although that is not excluded.
[2024-01-24] MEDS: gadobenate dimeglumine 20 mL vial 10 ML IV (13:41)
== END 2024-02-10 23:59 | disposition home or self-care (01) ==
LOC: ONCMED 01-25 11:54
PROVIDERS: Nurse Practitioner Family; PCP Family Medicine; Visit Provider Internal Medicine Medical Oncology
DX: Z53.9 Procedure and treatment not carried out, unspecified reason; C79.51 Secondary malignant neoplasm of bone; C80.1 Malignant (primary) neoplasm, unspecified
CPT/HCPCS: 72158; 80053; 85025; 96413; 99214; A9577; J7050; Q5107

== ENCOUNTER → 2024-01-26 15:02 | Outpatient (BNVA) | payer MEDICARE, SELFPAY | PROVIDERS: PCP Family Medicine; Visit Provider Specialist | DX: M54.31 Sciatica, right side (principal); R03.0 Elevated blood-pressure reading, without diagnosis of hypertension; D36.10 Benign neoplasm of peripheral nerves and autonomic nervous system, unspecified; M53.86 Other specified dorsopathies, lumbar region; G62.0 Drug-induced polyneuropathy | CPT/HCPCS: 99215 ==

== ENCOUNTER → 2024-02-22 08:02 | Outpatient (BNVA) | payer MEDICARE, SELFPAY | PROVIDERS: PCP Family Medicine; Visit Provider Family Medicine | DX: E87.1 Hypo-osmolality and hyponatremia (principal); R60.9 Edema, unspecified; R30.0 Dysuria | CPT/HCPCS: 80048; 81000; 83880; 87086 ==

== ENCOUNTER 2024-03-04 09:30 | Oncology outpatient (recurring) (ONCR) | payer MEDICARE, SELFPAY ==
[2024-02-13 10:00] VITALS: BP 138/79; PULSE 70; RESP 16; TEMP 36.3
[2024-02-13] MEDS: BEVACIZUMAB AWWB IV (11:05)
[2024-02-13] MEDS: SODIUM CHLORIDE 0.9% IV (11:05)
[2024-02-13] MEDS: sodium chloride 0.9% 250 ML 75 ML IV (11:09)
[2024-02-13 12:26] VITALS: BP 144/81; PULSE 76; RESP 16; TEMP 36.4
[2024-03-04 09:58] LABS: Basophils % 0.7 %; Eosinophils % 0.7 %; Lymphocytes # 1.1 10^3/uL (0.8-4.8); Lymphocytes % 20.3 %; Mean Corpuscular HGB Conc 35.5 g/dL (30-55); Mean Corpuscular Hemoglobin 31.9 pg (27-33); Mean Corpuscular Volume 89.8 fl (85-98); Mean Platelet Volume 8.1 fL (7.4-10.4); Monocytes # 0.4 10^3/uL (0.2-0.9); Monocytes % 7.5 %; Neutrophils # 3.86 10^3/uL (1.8-7.7); Neutrophils % 70.6 %; Nucleated Red Blood Cells % 0 %; Platelet Count 443 10^3/cmm (157-399); Red Blood Count 3.23 10^6/uL (3.85-5.65); Red Cell Distribution Width 12.5 % (12.1-15.1); White Blood Count 5.47 10^3/uL (3.29-11.43)
[2024-03-04 10:19] LABS: Bilirubin Urine Negative (Negative); Blood Urine Negative (Negative); Glucose Urine UA Negative (Normal); Ketones Urine Negative (Negative); Leukocyte Esterase Urine Negative (Negative); Nitrate Urine Negative (Negative); Protein Urine Trace (Negative); Specific Gravity, Urine 1.011 (1.005-1.030); Urine Appearance Clear (CLEAR); Urine Color Yellow (Yellow); Urobilinogen Urine 0.2 mg/dL (Negative)
[2024-03-04 10:21] LABS: Add Urine Microscopic? YES; Bacteria Urine None Seen /hpf; Hyaline Casts Urine 2.05 /lpf; RBC Urine 0-2 /hpf (0-2); Squamous Epithelial Cell Urine 0-5 /hpf (0-5); WBC Urine 0-5 /hpf (0-5)
[2024-03-04 10:22] LABS: Alanine Aminotransferase 25 U/L (0-33); Albumin Level 3.9 g/dL (3.5-5.2); Alkaline Phosphatase 53 U/L (35-105); Aspartate Amino Transferase 37 U/L (0-32); Blood Urea Nitrogen 12 mg/dL (8-23); Carbon Dioxide 26 mmol/L (22-29); Chloride 90 mmol/L (98-107); Globulin 2.2 g/dL (1.3-4.6); Glucose 126 mg/dL (65-115); Osmolality Calculated 261 mOsm/kg (285-295); Sodium 125 mmol/L (136-145); Total Bilirubin 0.2 mg/dL (0.15-1.2); Total Protein 6.1 g/dL (6.6-8.7)
[2024-03-04] MEDS: sodium chloride 0.9% 250 ML 75 ML IV (12:23)
[2024-03-04] MEDS: BEVACIZUMAB AWWB IV (12:24)
[2024-03-04] MEDS: SODIUM CHLORIDE 0.9% IV (12:24)
[2024-03-04 12:25] VITALS: BP 135/76; PULSE 88; RESP 16; TEMP 36.4; O2SAT 94
[2024-03-04 13:05] VITALS: BP 124/78; PULSE 86; TEMP 36.2; O2SAT 97
== END 2024-03-04 23:59 | disposition home or self-care (01) ==
PROVIDERS: Nurse Practitioner Family; PCP Family Medicine; Visit Provider Internal Medicine Medical Oncology
DX: C79.51 Secondary malignant neoplasm of bone (principal); Z53.9 Procedure and treatment not carried out, unspecified reason; Z92.21 Personal history of antineoplastic chemotherapy; Z51.12 Encounter for antineoplastic immunotherapy; Z92.3 Personal history of irradiation; Z85.42 Personal history of malignant neoplasm of other parts of uterus; Z90.710 Acquired absence of both cervix and uterus; Z90.79 Acquired absence of other genital organ(s); Z90.722 Acquired absence of ovaries, bilateral; C77.1 Secondary and unspecified malignant neoplasm of intrathoracic lymph nodes; N39.0 Urinary tract infection, site not specified; N39.41 Urge incontinence; K59.00 Constipation, unspecified; E87.1 Hypo-osmolality and hyponatremia; Z79.899 Other long term (current) drug therapy
CPT/HCPCS: 80053; 81001; 85025; 96413; 99214; J7050; Q5107

== ENCOUNTER 2024-04-01 12:06 | Inpatient (IN) | payer MEDICARE, SELFPAY ==
[2024-04-01] VITALS (14 sets, daily range): BP systolic 104–198; BP diastolic 65–108; PULSE 80–106; RESP 12–16; TEMP 36.4–36.8; O2SAT 94–100; BMI 16.2
--- NOTE | 2024-04-01 13:07 | PC.PHAR ---
spouse only giving Morphine ir and er currently
--- NOTE | 2024-04-01 13:39 | ED_ITS ---
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 On her imaging she was found to have a critical finding of urinary retention with an estimated bladder volume of 1253 mL. Patient states she has been urinating what she describes as normally over the weekend. She does have history of UTIs and finished antibiotics last month for one. She has had urinary incontinence previously. Her only physical complaint at this time is back pain. Patient and state she has a longstanding history of back pain and has received several evaluations for this including oncology, PCP, neurology/Dr. Ac and most recently neurosurgery at [facility]. She states she was recently put on morphine by oncology for the pain. MD elicited complaint: other (urinary retention) Relieving factors: none Associated symptoms: Deny abdominal pain or headache(s) Treatment prior to arrival: none Sexual activity: No Patient : No Related Data Home Medications Medication Instructions Recorded Confirmed ascorbic acid (vitamin C) 500 mg 500 mg PO DAILY 02/01/23 04/01/24 capsule cholecalciferol (vitamin D3) 125 125 mcg PO DAILY 02/01/23 04/01/24 mcg (5,000 unit) capsule magnesium 200 mg tablet 200 mg PO DAILY 02/01/23 04/01/24 vitamin B complex 1 tab PO DAILY 02/01/23 04/01/24 zinc sulfate 25 mg zinc (110 mg) 25 mg PO DAILY 02/01/23 04/01/24 tablet aspirin 325 mg tablet 325 mg PO DAILY PRN pain 02/06/23 04/01/24 lisinopril 10 mg tablet 10 mg PO DAILY 04/01/24 04/01/24 Previous Rx's Medication Instructions Recorded Wheeled Seated Walker #1 ea 02/28/23 diphenoxylate-atropine 2.5 1 tab PO TID PRN diarrhea #30 tabs 11/16/23 mg-0.025 mg tablet (Lomotil) lidocaine-prilocaine 2.5 %-2.5 % 1 applic topical .COMPLEX PRN 01/22/24 topical cream numbing cream #30 grams sennosides 8.6 mg-docusate sodium 2 tab-cap (2 x 8.6-50 mg) PO BID 02/22/24 50 mg tablet (Senokot-S) PRN constipation #120 tabs dexamethasone 4 mg tablet 4 mg PO DAILY #14 tabs 03/25/24 morphine 15 mg immediate release 15 mg PO Q6H 30 days #120 tabs 03/25/24 tablet morphine 15 mg tablet,extended 15 mg PO Q12H 30 days #60 tabs 03/25/24 release sulfamethoxazole 800 1 tab PO BID 7 days #14 tabs 04/01/24 mg-trimethoprim 160 mg tablet (Bactrim DS) Allergies Allergy/AdvReac Type Severity Reaction Status Date / Time Penicillins AdvReac Intermediate nausea Verified 03/04/24 10:24 cefdinir AdvReac Intermediate jittery Uncoded 03/04/24 10:24 Review of Systems 2 Const: Denies: fever(s) Card: Denies: chest pain Resp: Denies: dyspnea GI: Denies: abdominal pain, vomiting or diarrhea : Denies: flank pain or dysuria Musc: Reports: back pain Skin/Breast: Denies: rash Neuro: Denies: headache(s) or dizziness PFSH ED 2 PFSH: Medical History Degenerative joint disease of spine Nephrolithiasis Endometrial cancer Sciatica associated with disorder of lumbar spine Surgical History History of needle biopsy (11/10/22) FNA biopsy of left neck mass History of hysterectomy with bilateral oophorectomy (07/08/19) Modified radical hysterectomy, bilateral salpingo-oophorectomy, and lymph node dissection History of back surgery (08/12/22) L3-4 and L4-5 laminectomy/partial facetectomy Family History Mother Diabetes Father Stroke Denies family history of CAD (coronary artery disease) Clotting disorder Dementia Hyperlipidemia Psychiatric illness Chronic kidney disease (CKD) Suicide Anesthesia complication Bleeding disorder Family history of premature coronary artery disease Lung disease Cancer Hypertension Social History Smoking and tobacco/nicotine status: never used tobacco/nicotine Physical Exam 2 Const: COMMON NORMALS: no acute distress, patient oriented x3 and alert G ENERAL APPEARANCE: cooperative and other (frail appearing) O RIENTATION/CONSCIOUSNESS: Yes awake, Yes oriented to person and Yes oriented to place HENMT: COMMON NORMALS: normocephalic and atraumatic HEAD & SCALP: n ormocephalic and atraumatic Resp: COMMON NORMALS: normal respiratory effort and clear to auscultation bilaterally AUSCULTATION: clear to auscultation bilaterally Cardio: COMMON NORMALS: regular rate and regular rhythm RATE: regular rate RHYTHM: regular rhythm GI: INSPECTION: Yes abdominal distension (bladder distension) AUSCULTATION: Yes normoactive bowel sounds PALPATION: No Tenderness to palpation present (GI) and Yes Other GI palpation findings present (palpable bladder) : COMMON NORMALS: Yes no CVA tenderness BLADDER/KIDNEY EXAM: Yes no CVA tenderness Back/Pelvis: COMMON NORMALS: no CVA tenderness LUMBAR SPINE/LOWER BACK: Yes lumbar spinal tenderness and Yes paraspinal muscle tenderness PELVIS: Yes buttocks normal and No sciatic notch tenderness SACROILIAC JOINTS: Yes SI joints normal SACRUM: no tenderness COCCYX: no tenderness Extremity: GENERAL: Yes normal exam except as noted Neuro: JASWANT COMA SCALE: document GCS findings [place] coma scale eye opening: Spontaneous [place] coma scale verbal response: Orientated [place] coma scale motor response: Obey commands [place] coma scale total score: 15 COMMON NORMALS: patient oriented x3 SENSORIUM/ORIENTATION: Yes alert, Yes oriented to person and Yes oriented to place Skin: COMMON NORMALS: no rashes or lesions noted GENERAL SKIN EXAM: no rashes or lesions noted Course 2 ED course: Discussed with Dr. Loco patient's PET scans results as well as her previous lumbar MRI results. He is recommending CT lumbar with and without contrast at this time. Elkins has already been placed as her bladder scanner showed over 1500 mL. Elkins drained approximately 1800 mL. Patient's blood work is unremarkable. Her UA is consistent with acute cystitis with 2+ leukocyte esterase and over 100 WBCs. Looking at previous micro results she has always grown e. coli pansensitive. Will give her 1g IV Rocephin. DDx at this time for her acute urinary retention includes drug related (started morphine recently), acute cystitis, spinal canal compression by mass/tumor, etc. Vital Signs: Vital signs: Vital Signs Temperature 98.8 F 04/03/24 04:00 Pulse Rate 100 04/03/24 04:00 Respiratory Rate 17 04/03/24 04:00 Blood Pressure 157/94 04/03/24 04:00 Pulse Oximetry 96 04/03/24 04:00 Oxygen Delivery Me thod Room Air 04/03/24 04:00 MDM - Female Lab Data 04/02/24 04:28 04/02/24 04:28 Radiology Impressions Lumbar Spine CT 04/01/24 13:53 IMPRESSION: 1. There is apparent clumping and distortion of the nerve roots at the level of L3-L4 and L4-L5 which can be seen in the setting arachnoiditis. If clinically indicated this can be further assessed with lumbar spine MRI. 2. No significant interval change in the degree of posterior disc protrusion in the lumbar spine compared to the prior lumbar MRI dated 01/24/2024 given differences in technique. 3. There is apparent circumferential irregular bladder wall thickening seen at the dome of the bladder though this is incompletely visualized and assessed on this examination. Lumbar Spine MRI 04/02/24 20:40 IMPRESSION: 1. Continued thickening, clumping and abnormal signal of the conus and nerve roots extending into the lumbar region. This may be related to arachnoiditis but likely metastatic disease to the conus and lumbar nerve roots should be considered. I did review a prior PET/CT from 03/29/2024 and there is some increased FDG uptake in the expected location of the conus and nerve roots which was not present on a prior PET/CT of 07/11/2023. The findings involving the conus and the nerve roots were not present on 06/14/2023 MRI. 2. MRI is limited due to motion artifact and lack of IV contrast. Extent of tumor cannot be completely determined on this noncontrast MRI. Please note there was also clumping and distortion of the nerve roots on the recent CT. Laboratory Results WBC 4.89 10^3/uL (3.29-11.43) 04/01/24 14:07 RBC 3.61 10^6/uL (3.85-5.65) L 04/01/24 14:07 Hgb 11.50 g/dL (11.27-16.99) 04/01/24 14:07 Hct 33.8 % (36-47) L 04/01/24 14:07 MCV 93.6 fl (85-98) 04/01/24 14:07 MCH 31.9 pg (27-33) 04/01/24 14:07 MCHC 34.0 g/dL (30-55) 04/01/24 14:07 RDW 12.7 % (12.1-15.1) 04/01/24 14:07 Plt Count 339 10^3/cmm (157-399) 04/01/24 14:07 MPV 8.2 fL (7.4-10.4) 04/01/24 14:07 Neut % (Auto) 67.5 % 04/01/24 14:07 Lymph % (Auto) 23.3 % 04/01/24 14:07 [place] % (Auto) 7.0 % 04/01/24 14:07 Eos % (Auto) 1.2 % 04/01/24 14:07 Baso % (Auto) 0.8 % 04/01/24 14:07 Neut # (Auto) 3.30 10^3/uL (1.8-7.7) 04/01/24 14:07 Lymph # (Auto) 1.1 10^3/uL (0.8-4.8) 04/01/24 14:07 [place] # (Auto) 0.3 10^3/uL (0.2-0.9) 04/01/24 14:07 Eos # (Auto) 0.1 10^3/uL (0.0-0.8) 04/01/24 14:07 Baso # (Auto) 0.0 10^3/uL (0.0-0.1) 04/01/24 14:07 Nucleated RBC % (auto) 0 % 04/01/24 14:07 Nucleated RBCs # 0.0 /100WBC 04/01/24 14:07 Sodium 132 mmol/L (136-145) L 04/01/24 14:07 Potassium 3.5 mmol/L (3.5-5.1) 04/01/24 14:07 Chloride 92 mmol/L (98-107) L 04/01/24 14:07 Carbon Dioxide 27 mmol/L (22-29) 04/01/24 14:07 Anion Gap 16.5 (5-19) 04/01/24 14:07 BUN 13 mg/dL (8-23) 04/01/24 14:07 Creatinine 0.4 mg/dL (0.5-0.9) L 04/01/24 14:07 GFR Calculation Not Reportable 04/01/24 14:07 Glucose 102 mg/dL (65-115) 04/01/24 14:07 Calculated Osmolality 274 mOsm/kg (285-295) L 04/01/24 14:07 Calcium 9.7 mg/dL (8.5-10.5) 04/01/24 14:07 Total Bilirubin 0.4 mg/dL (0.15-1.2) 04/01/24 14:07 AST 28 U/L (0-32) 04/01/24 14:07 ALT 17 U/L (0-33) 04/01/24 14:07 Alkaline Phosphatase 49 U/L (35-105) 04/01/24 14:07 Total Protein 6.5 g/dL (6.6-8.7) L 04/01/24 14:07 Albumin 4.1 g/dL (3.5-5.2) 04/01/24 14:07 Globulin 2.4 g/dL (1.3-4.6) 04/01/24 14:07 Vitamin B12 > 2000 pg/mL (232-1245) H 04/01/24 14:07 Procalcitonin 0.06 ng/mL (0-0.5) 04/01/24 14:07 Urine Color Yellow (Yellow) 04/01/24 15:00 Urine Appearance Cloudy (CLEAR) A 04/01/24 15:00 Urine pH 7.0 (5-7) 04/01/24 15:00 Ur Specific [place] 1.010 (1.005-1.030) 04/01/24 15:00 Urine Protein Trace (Negative) A 04/01/24 15:00 Urine Glucose (UA) Negative (Normal) 04/01/24 15:00 Urine Ketones Negative (Negative) 04/01/24 15:00 Urine Blood 1+ (Negative) A 04/01/24 15:00 Urine Nitrate Negative (Negative) 04/01/24 15:00 Urine Bilirubin Negative (Negative) 04/01/24 15:00 Urine Urobilinogen 0.2 mg/dL (Negative) 04/01/24 15:00 Ur Leukocyte Esterase 2+ (Negative) A 04/01/24 15:00 Urine RBC 11-20 /hpf (0-2) H 04/01/24 15:00 Urine WBC >100 /hpf (0-5) H 04/01/24 15:00 Ur Squamous Epith Cells 0-5 /hpf (0-5) 04/01/24 15:00 Amorphous Sediment Not Reportable 04/01/24 15:00 Urine Bacteria 1+ /hpf (NONE) H 04/01/24 15:00 Hyaline Casts 1.65 /lpf 04/01/24 15:00 Discharge Plan Discharge Patient Disposition: Admitted As Inpatient Admit Provider: Maggie Pat Clinical Impression: Acute urinary retention Acute cystitis Qualifiers: Hematuria presence: with hematuria Qualified Code(s): N30.01 - Acute cystitis with hematuria Condition: Stable Sign Out Sign Out Data: Patient Sign Out occurred on 04/01/24 at 18:23. Patient's care was discussed, and care was transferred from AMARILIS Boyer to AMARILIS Sumner. Coding Level of Care Code ED Consumer Studies Professor for Chg Fwd Documented by User: AMARILIS Sumner 04/01/24 18:47 HPI - Female Genitourinary 2 General: Chief complaint: Urogenital-Female Stated complaint: bladder problems Time Seen by Provider: 04/01/24 12:29 Related Data Home Medications Medication Instructions Recorded Confirmed ascorbic acid (vitamin C) 500 mg 500 mg PO DAILY 02/01/23 04/01/24 capsule cholecalciferol (vitamin D3) 125 125 mcg PO DAILY 02/01/23 04/01/24 mcg (5,000 unit) capsule magnesium 200 mg tablet 200 mg PO DAILY 02/01/23 04/01/24 vitamin B complex 1 tab PO DAILY 02/01/23 04/01/24 zinc sulfate 25 mg zinc (110 mg) 25 mg PO DAILY 02/01/23 04/01/24 tablet aspirin 325 mg tablet 325 mg PO DAILY PRN pain 02/06/23 04/01/24 lisinopril 10 mg tablet 10 mg PO DAILY 04/01/24 04/01/24 Previous Rx's Medication Instructions Recorded Wheeled Seated Walker #1 ea 02/28/23 diphenoxylate-atropine 2.5 1 tab PO TID PRN diarrhea #30 tabs 11/16/23 mg-0.025 mg tablet (Lomotil) lidocaine-prilocaine 2.5 %-2.5 % 1 applic topical .COMPLEX PRN 01/22/24 topical cream numbing cream #30 grams sennosides 8.6 mg-docusate sodium 2 tab-cap (2 x 8.6-50 mg) PO BID 02/22/24 50 mg tablet (Senokot-S) PRN constipation #120 tabs dexamethasone 4 mg tablet 4 mg PO DAILY #14 tabs 03/25/24 morphine 15 mg immediate release 15 mg PO Q6H 30 days #120 tabs 03/25/24 tablet morphine 15 mg tablet,extended 15 mg PO Q12H 30 days #60 tabs 03/25/24 release sulfamethoxazole 800 1 tab PO BID 7 days #14 tabs 04/01/24 mg-trimethoprim 160 mg tablet (Bactrim DS) Allergies Allergy/AdvReac Type Severity Reaction Status Date / Time Penicillins AdvReac Intermediate nausea Verified 03/04/24 10:24 cefdinir AdvReac Intermediate jittery Uncoded 03/04/24 10:24 PFSH ED 2 PFSH: Medical History Degenerative joint disease of spine Nephrolithiasis Endometrial cancer Sciatica associated with disorder of lumbar spine Surgical History History of needle biopsy (11/10/22) FNA biopsy of left neck mass History of hysterectomy with bilateral oophorectomy (07/08/19) Modified radical hysterectomy, bilateral salpingo-oophorectomy, and lymph node dissection History of back surgery (08/12/22) L3-4 and L4-5 laminectomy/partial facetectomy Family History Mother Diabetes Father Stroke Denies family history of CAD (coronary artery disease) Clotting disorder Dementia Hyperlipidemia Psychiatric illness Chronic kidney disease (CKD) Suicide Anesthesia complication Bleeding disorder Family history of premature coronary artery disease Lung disease Cancer Hypertension Social History Smoking and tobacco/nicotine status: never used tobacco/nicotine Physical Exam 2 Neuro: JASWANT COMA SCALE: document GCS findings [place] coma scale total score: 15 Course 2 Vital Signs: Vital signs: Vital Signs Temperature 98.8 F 04/03/24 04:00 Pulse Rate 100 04/03/24 04:00 Respiratory Rate 17 04/03/24 04:00 Blood Pressure 157/94 04/03/24 04:00 Pulse Oximetry 96 04/03/24 04:00 Oxygen Delivery Sc thod Room Air 04/03/24 04:00 MDM - Female Medical Decision Making Care of patient transferred over to or by dayshift provider, Michaela See. This patient has a history of endometrial cancer with metastasis, sent to the emergency department due to recent PET scan findings of urinary retention. Had greater than 1200 mL of urine in her bladder reportedly, however today it was reported that she had upwards of 1600 mL drained about urinary catheterization. Recently she was started on morphine for pain control, and also has a history of multiple urinary tract infections of which there is evidence that she has once a day. However she has history of soft tissue mass in the area of the lumbar spine, which was found on MRI on 01/24/2024. Because of this a CT of lumbar spine was ordered today to rule out any acute cauda equina syndrome or other structural reasons for her urinary retention. On CT, they could not rule out an acute arachnoiditis and an MRI was recommended. Because of this, spoke with Dr. Pat, who stated he will consult Dr. Escudero before admission. Patient will be admitted with plan for an MRI tomorrow. Blood pressure has been trending up., Prior to admission she is given 10 of hydralazine. Her lab work essentially unremarkable, she is also started on antibiotics here for her urinary tract infection. This patient's case discussed with both Dr. Loco and Dr. Hagan. Lab Data 04/02/24 04:28 04/02/24 04:28 Radiology Impressions Lumbar Spine CT 04/01/24 13:53 IMPRESSION: 1. There is apparent clumping and distortion of the nerve roots at the level of L3-L4 and L4-L5 which can be seen in the setting arachnoiditis. If clinically indicated this can be further assessed with lumbar spine MRI. 2. No significant interval change in the degree of posterior disc protrusion in the lumbar spine compared to the prior lumbar MRI dated 01/24/2024 given differences in technique. 3. There is apparent circumferential irregular bladder wall thickening seen at the dome of the bladder though this is incompletely visualized and assessed on this examination. Lumbar Spine MRI 04/02/24 20:40 IMPRESSION: 1. Continued thickening, clumping and abnormal signal of the conus and nerve roots extending into the lumbar region. This may be related to arachnoiditis but likely metastatic disease to the conus and lumbar nerve roots should be considered. I did review a prior PET/CT from 03/29/2024 and there is some increased FDG uptake in the expected location of the conus and nerve roots which was not present on a prior PET/CT of 07/11/2023. The findings involving the conus and the nerve roots were not present on 06/14/2023 MRI. 2. MRI is limited due to motion artifact and lack of IV contrast. Extent of tumor cannot be completely determined on this noncontrast MRI. Please note there was also clumping and distortion of the nerve roots on the recent CT. Laboratory Results WBC 4.89 10^3/uL (3.29-11.43) 04/01/24 14:07 RBC 3.61 10^6/uL (3.85-5.65) L 04/01/24 14:07 Hgb 11.50 g/dL (11.27-16.99) 04/01/24 14:07 Hct 33.8 % (36-47) L 04/01/24 14:07 MCV 93.6 fl (85-98) 04/01/24 14:07 MCH 31.9 pg (27-33) 04/01/24 14:07 MCHC 34.0 g/dL (30-55) 04/01/24 14:07 RDW 12.7 % (12.1-15.1) 04/01/24 14:07 Plt Count 339 10^3/cmm (157-399) 04/01/24 14:07 MPV 8.2 fL (7.4-10.4) 04/01/24 14:07 Neut % (Auto) 67.5 % 04/01/24 14:07 Lymph % (Auto) 23.3 % 04/01/24 14:07 [place] % (Auto) 7.0 % 04/01/24 14:07 Eos % (Auto) 1.2 % 04/01/24 14:07 Baso % (Auto) 0.8 % 04/01/24 14:07 Neut # (Auto) 3.30 10^3/uL (1.8-7.7) 04/01/24 14:07 Lymph # (Auto) 1.1 10^3/uL (0.8-4.8) 04/01/24 14:07 [place] # (Auto) 0.3 10^3/uL (0.2-0.9) 04/01/24 14:07 Eos # (Auto) 0.1 10^3/uL (0.0-0.8) 04/01/24 14:07 Baso # (Auto) 0.0 10^3/uL (0.0-0.1) 04/01/24 14:07 Nucleated RBC % (auto) 0 % 04/01/24 14:07 Nucleated RBCs # 0.0 /100WBC 04/01/24 14:07 Sodium 132 mmol/L (136-145) L 04/01/24 14:07 Potassium 3.5 mmol/L (3.5-5.1) 04/01/24 14:07 Chloride 92 mmol/L (98-107) L 04/01/24 14:07 Carbon Dioxide 27 mmol/L (22-29) 04/01/24 14:07 Anion Gap 16.5 (5-19) 04/01/24 14:07 BUN 13 mg/dL (8-23) 04/01/24 14:07 Creatinine 0.4 mg/dL (0.5-0.9) L 04/01/24 14:07 GFR Calculation Not Reportable 04/01/24 14:07 Glucose 102 mg/dL (65-115) 04/01/24 14:07 Calculated Osmolality 274 mOsm/kg (285-295) L 04/01/24 14:07 Calcium 9.7 mg/dL (8.5-10.5) 04/01/24 14:07 Total Bilirubin 0.4 mg/dL (0.15-1.2) 04/01/24 14:07 AST 28 U/L (0-32) 04/01/24 14:07 ALT 17 U/L (0-33) 04/01/24 14:07 Alkaline Phosphatase 49 U/L (35-105) 04/01/24 14:07 Total Protein 6.5 g/dL (6.6-8.7) L 04/01/24 14:07 Albumin 4.1 g/dL (3.5-5.2) 04/01/24 14:07 Globulin 2.4 g/dL (1.3-4.6) 04/01/24 14:07 Vitamin B12 > 2000 pg/mL (232-1245) H 04/01/24 14:07 Procalcitonin 0.06 ng/mL (0-0.5) 04/01/24 14:07 Urine Color Yellow (Yellow) 04/01/24 15:00 Urine Appearance Cloudy (CLEAR) A 04/01/24 15:00 Urine pH 7.0 (5-7) 04/01/24 15:00 Ur Specific [place] 1.010 (1.005-1.030) 04/01/24 15:00 Urine Protein Trace (Negative) A 04/01/24 15:00 Urine Glucose (UA) Negative (Normal) 04/01/24 15:00 Urine Ketones Negative (Negative) 04/01/24 15:00 Urine Blood 1+ (Negative) A 04/01/24 15:00 Urine Nitrate Negative (Negative) 04/01/24 15:00 Urine Bilirubin Negative (Negative) 04/01/24 15:00 Urine Urobilinogen 0.2 mg/dL (Negative) 04/01/24 15:00 Ur Leukocyte Esterase 2+ (Negative) A 04/01/24 15:00 Urine RBC 11-20 /hpf (0-2) H 04/01/24 15:00 Urine WBC >100 /hpf (0-5) H 04/01/24 15:00 Ur Squamous Epith Cells 0-5 /hpf (0-5) 04/01/24 15:00 Amorphous Sediment Not Reportable 04/01/24 15:00 Urine Bacteria 1+ /hpf (NONE) H 04/01/24 15:00 Hyaline Casts 1.65 /lpf 04/01/24 15:00 All radiology interpretation(s) finalized by discharge Discharge Plan Discharge Patient Disposition: Admitted As Inpatient Admit Provider: Maggie Pat Clinical Impression: Acute urinary retention Acute cystitis Qualifiers: Hematuria presence: with hematuria Qualified Code(s): N30.01 - Acute cystitis with hematuria Condition: Stable Sign Out Sign Out Data: Patient Sign Out occurred on 04/01/24 at 18:23. Patient's care was discussed, and care was transferred from AMARILIS Boyer to AMARILIS Sumner. Coding Level of Care Code ED Consumer Studies Professor for Chg Fwd Documented by User: Ricardo Loco DO 04/03/24 05:07 HPI - Female Genitourinary 2 General: Chief complaint: Urogenital-Female Stated complaint: bladder problems Time Seen by Provider: 04/01/24 12:29 Related Data Home Medications Medication Instructions Recorded Confirmed ascorbic acid (vitamin C) 500 mg 500 mg PO DAILY 02/01/23 04/01/24 capsule cholecalciferol (vitamin D3) 125 125 mcg PO DAILY 02/01/23 04/01/24 mcg (5,000 unit) capsule magnesium 200 mg tablet 200 mg PO DAILY 02/01/23 04/01/24 vitamin B complex 1 tab PO DAILY 02/01/23 04/01/24 zinc sulfate 25 mg zinc (110 mg) 25 mg PO DAILY 02/01/23 04/01/24 tablet aspirin 325 mg tablet 325 mg PO DAILY PRN pain 02/06/23 04/01/24 lisinopril 10 mg tablet 10 mg PO DAILY 04/01/24 04/01/24 Previous Rx's Medication Instructions Recorded Wheeled Seated Walker #1 ea 02/28/23 diphenoxylate-atropine 2.5 1 tab PO TID PRN diarrhea #30 tabs 11/16/23 mg-0.025 mg tablet (Lomotil) lidocaine-prilocaine 2.5 %-2.5 % 1 applic topical .COMPLEX PRN 01/22/24 topical cream numbing cream #30 grams sennosides 8.6 mg-docusate sodium 2 tab-cap (2 x 8.6-50 mg) PO BID 02/22/24 50 mg tablet (Senokot-S) PRN constipation #120 tabs dexamethasone 4 mg tablet 4 mg PO DAILY #14 tabs 03/25/24 morphine 15 mg immediate release 15 mg PO Q6H 30 days #120 tabs 03/25/24 tablet morphine 15 mg tablet,extended 15 mg PO Q12H 30 days #60 tabs 03/25/24 release sulfamethoxazole 800 1 tab PO BID 7 days #14 tabs 04/01/24 mg-trimethoprim 160 mg tablet (Bactrim DS) Allergies Allergy/AdvReac Type Severity Reaction Status Date / Time Penicillins AdvReac Intermediate nausea Verified 03/04/24 10:24 cefdinir AdvReac Intermediate jittery Uncoded 03/04/24 10:24 PFSH ED 2 PFSH: Medical History Degenerative joint disease of spine Nephrolithiasis Endometrial cancer Sciatica associated with disorder of lumbar spine Surgical History History of needle biopsy (11/10/22) FNA biopsy of left neck mass History of hysterectomy with bilateral oophorectomy (07/08/19) Modified radical hysterectomy, bilateral salpingo-oophorectomy, and lymph node dissection History of back surgery (08/12/22) L3-4 and L4-5 laminectomy/partial facetectomy Family History Mother Diabetes Father Stroke Denies family history of CAD (coronary artery disease) Clotting disorder Dementia Hyperlipidemia Psychiatric illness Chronic kidney disease (CKD) Suicide Anesthesia complication Bleeding disorder Family history of premature coronary artery disease Lung disease Cancer Hypertension Social History Smoking and tobacco/nicotine status: never used tobacco/nicotine Physical Exam 2 Neuro: JASWANT COMA SCALE: document GCS findings [place] coma scale total score: 15 Course 2 Vital Signs: Vital signs: Vital Signs Temperature 98.8 F 04/03/24 04:00 Pulse Rate 100 04/03/24 04:00 Respiratory Rate 17 04/03/24 04:00 Blood Pressure 157/94 04/03/24 04:00 Pulse Oximetry 96 04/03/24 04:00 Oxygen Delivery Sc thod Room Air 04/03/24 04:00 MDM - Female Medical Decision Making Care of patient transferred over to or by dayshift provider, Michaela See. This patient has a history of endometrial cancer with metastasis, sent to the emergency department due to recent PET scan findings of urinary retention. Had greater than 1200 mL of urine in her bladder reportedly, however today it was reported that she had upwards of 1600 mL drained about urinary catheterization. Recently she was started on morphine for pain control, and also has a history of multiple urinary tract infections of which there is evidence that she has once a day. However she has history of soft tissue mass in the area of the lumbar spine, which was found on MRI on 01/24/2024. Because of this a CT of lumbar spine was ordered today to rule out any acute cauda equina syndrome or other structural reasons for her urinary retention. On CT, they could not rule out an acute arachnoiditis and an MRI was recommended. Because of this, spoke with Dr. Pat, who stated he will consult Dr. Escudero before admission. Patient will be admitted with plan for an MRI tomorrow. Blood pressure has been trending up., Prior to admission she is given 10 of hydralazine. Her lab work essentially unremarkable, she is also started on antibiotics here for her urinary tract infection. This patient's case discussed with both Dr. Loco and Dr. Hagan. Chart reviewed and patient discussed with midlevel. Agree with assessment and plan. Lab Data 04/02/24 04:28 04/02/24 04:28 Radiology Impressions Lumbar Spine CT 04/01/24 13:53 IMPRESSION: 1. There is apparent clumping and distortion of the nerve roots at the level of L3-L4 and L4-L5 which can be seen in the setting arachnoiditis. If clinically indicated this can be further assessed with lumbar spine MRI. 2. No significant interval change in the degree of posterior disc protrusion in the lumbar spine compared to the prior lumbar MRI dated 01/24/2024 given differences in technique. 3. There is apparent circumferential irregular bladder wall thickening seen at the dome of the bladder though this is incompletely visualized and assessed on this examination. Lumbar Spine MRI 04/02/24 20:40 IMPRESSION: 1. Continued thickening, clumping and abnormal signal of the conus and nerve roots extending into the lumbar region. This may be related to arachnoiditis but likely metastatic disease to the conus and lumbar nerve roots should be considered. I did review a prior PET/CT from 03/29/2024 and there is some increased FDG uptake in the expected location of the conus and nerve roots which was not present on a prior PET/CT of 07/11/2023. The findings involving the conus and the nerve roots were not present on 06/14/2023 MRI. 2. MRI is limited due to motion artifact and lack of IV contrast. Extent of tumor cannot be completely determined on this noncontrast MRI. Please note there was also clumping and distortion of the nerve roots on the recent CT. Laboratory Results WBC 4.89 10^3/uL (3.29-11.43) 04/01/24 14:07 RBC 3.61 10^6/uL (3.85-5.65) L 04/01/24 14:07 Hgb 11.50 g/dL (11.27-16.99) 04/01/24 14:07 Hct 33.8 % (36-47) L 04/01/24 14:07 MCV 93.6 fl (85-98) 04/01/24 14:07 MCH 31.9 pg (27-33) 04/01/24 14:07 MCHC 34.0 g/dL (30-55) 04/01/24 14:07 RDW 12.7 % (12.1-15.1) 04/01/24 14:07 Plt Count 339 10^3/cmm (157-399) 04/01/24 14:07 MPV 8.2 fL (7.4-10.4) 04/01/24 14:07 Neut % (Auto) 67.5 % 04/01/24 14:07 Lymph % (Auto) 23.3 % 04/01/24 14:07 [place] % (Auto) 7.0 % 04/01/24 14:07 Eos % (Auto) 1.2 % 04/01/24 14:07 Baso % (Auto) 0.8 % 04/01/24 14:07 Neut # (Auto) 3.30 10^3/uL (1.8-7.7) 04/01/24 14:07 Lymph # (Auto) 1.1 10^3/uL (0.8-4.8) 04/01/24 14:07 [place] # (Auto) 0.3 10^3/uL (0.2-0.9) 04/01/24 14:07 Eos # (Auto) 0.1 10^3/uL (0.0-0.8) 04/01/24 14:07 Baso # (Auto) 0.0 10^3/uL (0.0-0.1) 04/01/24 14:07 Nucleated RBC % (auto) 0 % 04/01/24 14:07 Nucleated RBCs # 0.0 /100WBC 04/01/24 14:07 Sodium 132 mmol/L (136-145) L 04/01/24 14:07 Potassium 3.5 mmol/L (3.5-5.1) 04/01/24 14:07 Chloride 92 mmol/L (98-107) L 04/01/24 14:07 Carbon Dioxide 27 mmol/L (22-29) 04/01/24 14:07 Anion Gap 16.5 (5-19) 04/01/24 14:07 BUN 13 mg/dL (8-23) 04/01/24 14:07 Creatinine 0.4 mg/dL (0.5-0.9) L 04/01/24 14:07 GFR Calculation Not Reportable 04/01/24 14:07 Glucose 102 mg/dL (65-115) 04/01/24 14:07 Calculated Osmolality 274 mOsm/kg (285-295) L 04/01/24 14:07 Calcium 9.7 mg/dL (8.5-10.5) 04/01/24 14:07 Total Bilirubin 0.4 mg/dL (0.15-1.2) 04/01/24 14:07 AST 28 U/L (0-32) 04/01/24 14:07 ALT 17 U/L (0-33) 04/01/24 14:07 Alkaline Phosphatase 49 U/L (35-105) 04/01/24 14:07 Total Protein 6.5 g/dL (6.6-8.7) L 04/01/24 14:07 Albumin 4.1 g/dL (3.5-5.2) 04/01/24 14:07 Globulin 2.4 g/dL (1.3-4.6) 04/01/24 14:07 Vitamin B12 > 2000 pg/mL (232-1245) H 04/01/24 14:07 Procalcitonin 0.06 ng/mL (0-0.5) 04/01/24 14:07 Urine Color Yellow (Yellow) 04/01/24 15:00 Urine Appearance Cloudy (CLEAR) A 04/01/24 15:00 Urine pH 7.0 (5-7) 04/01/24 15:00 Ur Specific [place] 1.010 (1.005-1.030) 04/01/24 15:00 Urine Protein Trace (Negative) A 04/01/24 15:00 Urine Glucose (UA) Negative (Normal) 04/01/24 15:00 Urine Ketones Negative (Negative) 04/01/24 15:00 Urine Blood 1+ (Negative) A 04/01/24 15:00 Urine Nitrate Negative (Negative) 04/01/24 15:00 Urine Bilirubin Negative (Negative) 04/01/24 15:00 Urine Urobilinogen 0.2 mg/dL (Negative) 04/01/24 15:00 Ur Leukocyte Esterase 2+ (Negative) A 04/01/24 15:00 Urine RBC 11-20 /hpf (0-2) H 04/01/24 15:00 Urine WBC >100 /hpf (0-5) H 04/01/24 15:00 Ur Squamous Epith Cells 0-5 /hpf (0-5) 04/01/24 15:00 Amorphous Sediment Not Reportable 04/01/24 15:00 Urine Bacteria 1+ /hpf (NONE) H 04/01/24 15:00 Hyaline Casts 1.65 /lpf 04/01/24 15:00 Discharge Plan Discharge Patient Disposition: Admitted As Inpatient Admit Provider: Maggie Pat Clinical Impression: Acute urinary retention Acute cystitis Qualifiers: Hematuria presence: with hematuria Qualified Code(s): N30.01 - Acute cystitis with hematuria Condition: Stable Sign Out Sign Out Data: Patient Sign Out occurred on 04/01/24 at 18:23. Patient's care was discussed, and care was transferred from AMARILIS Boyer to AMARILIS Sumner. Coding Level of Care Code ED Consumer Studies Professor for Arnulfo Morales
--- NOTE | 2024-04-01 13:53 | CTR_ITS ---
PROCEDURE INFORMATION: Exam: CT Lumbar Spine Without and With Contrast Exam date and time: 04/01/2024 4:06 PM Age: 73 years old Clinical indication: Patient HX: Acute urinary retention, cancer PT. PT states RT hip pain. Difficult to get a HX from PT due to mental status. ; Additional info: Acute urinary retention; Cancer PT TECHNIQUE: Imaging protocol: Computed tomography of the lumbar spine without and with contrast. Radiation optimization: All CT scans at this facility use at least one of these dose optimization techniques: automated exposure control; mA and/or kV adjustment per patient size (includes targeted exams where dose is matched to clinical indication); or iterative reconstruction. Contrast material: OMNI 350; Contrast volume: 100 ml; Contrast route: INTRAVENOUS (IV); COMPARISON: PT PET skull to thigh SUBS [id number] 03/29/2024 1:32 PM RADIATION DOSE METRICS: Total DLP (mGy-cm): 700.2 FINDINGS: Bones/joints: Levoscoliosis of the lumbar spine. Disc bulging and ligamentum flavum hypertrophy at L4-L5 redemonstrated and seen to better advantage on the lumbar spine MRI dated 01/24/2024. Diffuse disc bulging at L2-L3. Mild disc bulging at L3-L4. No significant interval change in the degree of posterior disc protrusion in the lumbar spine compared to the prior lumbar MRI dated 01/24/2024 given differences in technique. Spleen: Multiple punctate calcifications in the spleen consistent with prior granulomatous infection. Urinary bladder: There is apparent circumferential irregular bladder wall thickening seen at the dome of the bladder though this is incompletely visualized and assessed on this examination. Soft tissues: There is apparent clumping and distortion of the nerve roots at the level of L3-L4 and L4-L5 which can be seen in the setting arachnoiditis. CT/CT lumbar spine wo/w con [id number] IMPRESSION: 1. There is apparent clumping and distortion of the nerve roots at the level of L3-L4 and L4-L5 which can be seen in the setting arachnoiditis. If clinically indicated this can be further assessed with lumbar spine MRI. 2. No significant interval change in the degree of posterior disc protrusion in the lumbar spine compared to the prior lumbar MRI dated 01/24/2024 given differences in technique. 3. There is apparent circumferential irregular bladder wall thickening seen at the dome of the bladder though this is incompletely visualized and assessed on this examination.
[2024-04-01 14:27] LABS: Basophils % 0.8 %; Eosinophils # 0.1 10^3/uL (0.0-0.8); Eosinophils % 1.2 %; Hematocrit 33.8 % (36-47); Lymphocytes # 1.1 10^3/uL (0.8-4.8); Lymphocytes % 23.3 %; Mean Corpuscular Hemoglobin 31.9 pg (27-33); Mean Corpuscular Volume 93.6 fl (85-98); Mean Platelet Volume 8.2 fL (7.4-10.4); Monocytes # 0.3 10^3/uL (0.2-0.9); Neutrophils % 67.5 %; Nucleated Red Blood Cells % 0 %; Platelet Count 339 10^3/cmm (157-399); Red Blood Count 3.61 10^6/uL (3.85-5.65); Red Cell Distribution Width 12.7 % (12.1-15.1); White Blood Count 4.89 10^3/uL (3.29-11.43)
--- NOTE | 2024-04-01 14:52 | PC.NURSE ---
pt care took over by this nurse at this time. [id number].
[2024-04-01 15:26] LABS: Alanine Aminotransferase 17 U/L (0-33); Albumin Level 4.1 g/dL (3.5-5.2); Alkaline Phosphatase 49 U/L (35-105); Anion Gap 16.5 (5-19); Aspartate Amino Transferase 28 U/L (0-32); Blood Urea Nitrogen 13 mg/dL (8-23); Calcium 9.7 mg/dL (8.5-10.5); Carbon Dioxide 27 mmol/L (22-29); Chloride 92 mmol/L (98-107); Creatinine Clr Calc Pharmacy 47.9863; Globulin 2.4 g/dL (1.3-4.6); Glucose 102 mg/dL (65-115); Osmolality Calculated 274 mOsm/kg (285-295); Potassium 3.5 mmol/L (3.5-5.1); Sodium 132 mmol/L (136-145); Total Bilirubin 0.4 mg/dL (0.15-1.2); Total Protein 6.5 g/dL (6.6-8.7)
[2024-04-01 15:38] LABS: Bilirubin Urine Negative (Negative); Blood Urine 1+ (Negative); Glucose Urine UA Negative (Normal); Ketones Urine Negative (Negative); Leukocyte Esterase Urine 2+ (Negative); Nitrate Urine Negative (Negative); Protein Urine Trace (Negative); Urine Appearance Cloudy (CLEAR); Urine Color Yellow (Yellow); Urobilinogen Urine 0.2 mg/dL (Negative)
[2024-04-01 15:43] LABS: Add Urine Microscopic? YES; Bacteria Urine 1+ /hpf; Hyaline Casts Urine 1.65 /lpf; Squamous Epithelial Cell Urine 0-5 /hpf (0-5); WBC Urine >100 /hpf (0-5)
[2024-04-01 15:44] LABS: Add Urine Culture? Yes
[2024-04-01] MEDS: iohexol 350 mg/mL 500 mL Btl (per mL) IV (16:12)
[2024-04-01] MEDS: morphine 4 mg/mL SDV 1 mL IVP (16:22)
[2024-04-01] MEDS: cefTRIAXone 1,000 mg SDV 1000 MG IVP (16:24)
[2024-04-01] MEDS: enalaprilat 2.5 mg/2 mL SDV 1.25 MG IVP (16:28)
--- NOTE | 2024-04-01 17:47 | P.HP_ITS ---
Providers/Chief Complaint 2 Primary Care Provider: Shiva Wolf MD Chief Complaint: bladder problems History of Present Illness Arti Marie is a 73 year old female with history of endometrial cancer with mets, has been following with Dr. Madison, missed last infusion because of worsening of pain, has right-sided leg weakness, uses a walker for ambulation presented with worsening of pain and not been able to void urine. In the ER Elkins catheter was placed 2300 mL urine was obtained. CT scan is showing bladder wall thickening and concern for arachnoiditis, discharge showing nerve root L3-L5. Please note patient started taking morphine last Monday she is also constipated. Review of Systems 2 Const: Denies: fever(s) Eyes: Denies: change in vision ENMT: Denies: throat pain Resp: Denies: dyspnea Musc: Reports: back pain Medications/Allergies Home Medications Medication Instructions Recorded Confirmed Last Taken Type ascorbic acid (vitamin C) 500 mg 500 mg PO DAILY 02/01/23 04/01/24 1 Week Ago History capsule ~03/25/24 cholecalciferol (vitamin D3) 125 125 mcg PO DAILY 02/01/23 04/01/24 1 Week Ago History mcg (5,000 unit) capsule ~03/25/24 magnesium 200 mg tablet 200 mg PO DAILY 02/01/23 04/01/24 1 Week Ago History ~03/25/24 vitamin B complex 1 tab PO DAILY 02/01/23 04/01/24 1 Week Ago History ~03/25/24 zinc sulfate 25 mg zinc (110 mg) 25 mg PO DAILY 02/01/23 04/01/24 1 Week Ago History tablet ~03/25/24 aspirin 325 mg tablet 325 mg PO DAILY PRN pain 02/06/23 04/01/24 1 Week Ago History ~03/25/24 Wheeled Seated Walker #1 ea 02/28/23 04/01/24 Unknown Rx diphenoxylate-atropine 2.5 1 tab PO TID PRN diarrhea #30 tabs 11/16/23 04/01/24 Unknown Rx mg-0.025 mg tablet (Lomotil) lidocaine-prilocaine 2.5 %-2.5 % 1 applic topical .COMPLEX PRN 01/22/24 04/01/24 Unknown Rx topical cream numbing cream #30 grams sennosides 8.6 mg-docusate sodium 2 tab-cap (2 x 8.6-50 mg) PO BID 02/22/24 04/01/24 1 Week Ago Rx 50 mg tablet (Senokot-S) PRN constipation #120 tabs ~03/25/24 dexamethasone 4 mg tablet 4 mg PO DAILY #14 tabs 03/25/24 04/01/24 1 Week Ago Rx ~03/25/24 morphine 15 mg immediate release 15 mg PO Q6H 30 days #120 tabs 03/25/24 04/01/24 04/01/24 Rx tablet morphine 15 mg tablet,extended 15 mg PO Q12H 30 days #60 tabs 03/25/24 04/01/24 04/01/24 Rx release lisinopril 10 mg tablet 10 mg PO DAILY 04/01/24 04/01/24 1 Week Ago History ~03/25/24 sulfamethoxazole 800 1 tab PO BID 7 days #14 tabs 04/01/24 Unknown Rx mg-trimethoprim 160 mg tablet (Bactrim DS) Allergies Allergy/AdvReac Type Severity Reaction Status Date / Time Penicillins AdvReac Intermediate nausea Verified 03/04/24 10:24 cefdinir AdvReac Intermediate jittery Uncoded 03/04/24 10:24 PFSH Acute 2 PFSH: Medical History Degenerative joint disease of spine Nephrolithiasis Endometrial cancer Sciatica associated with disorder of lumbar spine Surgical History History of needle biopsy (11/10/22) FNA biopsy of left neck mass History of hysterectomy with bilateral oophorectomy (07/08/19) Modified radical hysterectomy, bilateral salpingo-oophorectomy, and lymph node dissection History of back surgery (08/12/22) L3-4 and L4-5 laminectomy/partial facetectomy Family History Mother Diabetes Father Stroke Denies family history of CAD (coronary artery disease) Clotting disorder Dementia Hyperlipidemia Psychiatric illness Chronic kidney disease (CKD) Suicide Anesthesia complication Bleeding disorder Family history of premature coronary artery disease Lung disease Cancer Hypertension Social History Smoking and tobacco/nicotine status: never used tobacco/nicotine Vitals/I&O/Wt Last Vital Signs Temp 98.2 F 04/01/24 12:32 Pulse 91 04/01/24 17:30 Resp 15 04/01/24 16:30 BP 175/108 04/01/24 17:30 Pulse Ox 100 04/01/24 17:30 O2 Del Method Room Air 04/01/24 17:30 Weight last 48 hrs Weight 48.534 kg Physical Exam 2 Narrative: Right-sided chronic weakness Patient has intact sensations around medial side of her thighs Has a Elkins catheter draining clear urine GCS 15 Nonfocal neuroexam S1, S2 Clinical looks dehydrated Abdomen soft Hypertensive Urinary Catheter Management: Elkins: Cath Placed During This Visit: yes Urinary Catheter Date of Insertion: 04/01/24 Data 04/01/24 14:07 04/01/24 14:07 A&P Assessment and plan (1) Hyponatremia: (2) Acute urinary retention: (3) Urinary tract infection: (4) Acute cystitis: Qualifiers: Hematuria presence: with hematuria Qualified Code(s): N30.01 - Acute cystitis with hematuria (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, face and neck: (6) Schwannoma: (7) Endometrial cancer: (8) Secondary adenocarcinoma of bone: (9) Sciatica of right side: (10) Muscle spasticity: (11) Lumbar stenosis with neurogenic claudication: (12) Peripheral neuropathy: Qualifiers: Peripheral neuropathy type: polyneuropathy, drug-induced Qualified Code(s): 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 intake Full code Cardiac diet Attestations 2 Medical Necessity Statement*: Anticipating discharge within 40 hours will need MRI for lower back Diagnoses Hyponatremia E87.1 Acute urinary retention R33.8 Urinary tract infection N39.0 Acute cystitis N30.01 Hematuria presence: with hematuria Secondary malignancy of lymph nodes of head, face and neck C77.0 Schwannoma D36.10 Endometrial cancer C54.1 Secondary adenocarcinoma of bone C79.51 Sciatica of right side M54.31 Muscle spasticity M62.838 Lumbar stenosis with neurogenic claudication M48.062 Drug-induced polyneuropathy G62.0 Peripheral neuropathy type: polyneuropathy, drug-induced
[2024-04-01] MEDS: hyDRALAzine 20 mg/mL INJ 1 mL 10 MG IVP (18:41)
[2024-04-01 18:53] LABS: Procalcitonin 0.06 ng/mL (0-0.5)
--- NOTE | 2024-04-01 20:03 | PC.NURSE ---
Report called to Melany at 1957.
[2024-04-01] MEDS: sodium chloride 0.9% 1,000 ML 75 ML IV (20:58)
[2024-04-01] MEDS: dexamethasone 4 mg Tablet PO (20:58)
[2024-04-01] MEDS: morphine ER (12 HR) 15 mg Tablet PO (20:58)
[2024-04-01] MEDS: morphine IR 15 mg Tablet PO (20:58)
[2024-04-01 23:55] LABS: Vitamin B12 > 2000 pg/mL (232-1245)
[2024-04-02] VITALS (11 sets, daily range): BP systolic 134–198; BP diastolic 76–105; PULSE 87–106; RESP 14–20; TEMP 36.7–36.9; O2SAT 95–99
[2024-04-02] MEDS: morphine IR 15 mg Tablet PO ×4 (02:52→20:08)
[2024-04-02 05:21] LABS: Basophils % 0.4 %; Lymphocytes # 0.5 10^3/uL (0.8-4.8); Lymphocytes % 8.9 %; Mean Corpuscular HGB Conc 33.8 g/dL (30-55); Mean Corpuscular Volume 94.7 fl (85-98); Mean Platelet Volume 8.7 fL (7.4-10.4); Monocytes # 0.2 10^3/uL (0.2-0.9); Monocytes % 3.4 %; Neutrophils # 4.59 10^3/uL (1.8-7.7); Neutrophils % 86.9 %; Nucleated Red Blood Cells % 0 %; Platelet Count 367 10^3/cmm (157-399); Red Blood Count 3.38 10^6/uL (3.85-5.65); White Blood Count 5.28 10^3/uL (3.29-11.43)
[2024-04-02 05:41] LABS: Anion Gap 12.6 (5-19); Blood Urea Nitrogen 12 mg/dL (8-23); Calcium 8.9 mg/dL (8.5-10.5); Carbon Dioxide 28 mmol/L (22-29); Chloride 97 mmol/L (98-107); Creatinine Clr Calc Pharmacy 45.8339; Glucose 155 mg/dL (65-115); Magnesium 1.8 mg/dL (1.7-2.3); Osmolality Calculated 281 mOsm/kg (285-295); Potassium 3.6 mmol/L (3.5-5.1); Sodium 134 mmol/L (136-145)
[2024-04-02] MEDS: lisinopril 10 mg Tablet PO (07:54)
[2024-04-02] MEDS: morphine ER (12 HR) 15 mg Tablet PO ×2 (07:54→20:07)
[2024-04-02] MEDS: pantoprazole 40 mg SDV IVP ×2 (07:55→16:51)
[2024-04-02] MEDS: cefTRIAXone 1,000 MG in sodium chloride 0.9% (plus) 50 ML 100 MG IV (07:55)
[2024-04-02] MEDS: dexamethasone 4 mg Tablet PO ×4 (07:55→20:08)
--- NOTE | 2024-04-02 09:59 | PC.CHAP ---
Pastoral Care Encounter/Spiritual Assessment Type of Contact [] Declined assistant store leader visit [] Patient/Family/Request visit [] Outpatient visit [] Follow-up visit [] Physician referral [] Code/Alert [] Routine visit [] Staff referral [] Actively dying [] Patient sleeping [] Family support [] [] Out of room [] Palliative care [] [x] Receiving care in room [] Pre-surgical visit [] Trauma [] Long length of stay [] ICU visit [] Other: Relational/Emotional Strength [] Patient feels connected with others/family/visitors/staff [] Distress [] Loneliness/isolation [] Abandonment Spirituality of Patient [] Person of Natasha [] Attends Mormonism of their Natasha [] Believes in Prayer [] Reads Bible or Druze materials [] There are Spiritual issues to be addressed Factory Maintenance Manager Interventions [] Prayer [] Active listening [] Non-anxious presence [] Spiritual/emotional support [] Crisis/trauma care [] Spiritual counseling [] Bereavement support [] Provided bereavement packet [] Provided Bible/devotional materials [] Provided toy/stuffed animal, coloring book to patient or family member [] Provided Communion [] Anointing/[place] [] Salvation [] Completed spiritual assessment [] Other: Impact on Illness or Injury [] Angry [] Fearful [] Anxious [] Often cries [] Exhaustion [] Unable to work [] Unable to attend advent [] Unable to walk/stand [] Unable to read [] Unable to drive [] Unable to eat/drink [] Unable to sleep [] Unable to be with family [] Patient intubated [] Other: Summary Time spent with patient
--- NOTE | 2024-04-02 12:59 | P.PN_ITS ---
Subjective 2 Subjective: Spoke with Dr. Charlton, Dr. Madison, Dr. Ac and Dr. Ac got in touch with Dr. Clement neurosurgeon at [facility] As per his recommendations they were waiting on repeat MRI to see if there was any progression in case of any progression they recommended biopsy but if patient was stable it was not worth the risk considering her lesion proximity to the nerves We are uploading images to the cloud for Dr. Clement to take a look Vitals/I&O/Wt Last Vital Signs Temp 98.4 F 04/02/24 11:34 Pulse 101 H 04/02/24 11:34 Resp 16 04/02/24 11:34 BP 198/105 04/02/24 11:34 Pulse Ox 99 04/02/24 11:34 O2 Del Method Room Air 04/02/24 11:34 04/01/24 04/02/24 04/02/24 22:59 06:59 14:59 Intake Total 1170.000 / 1170.000 Output Total 700 / 700 50 / 750 Balance -700 / -700 -50 / -750 1170.000 / 1170.000 Weight last 48 hrs Weight 46.357 kg Weight 48.534 kg Weight 48.534 kg Physical Exam 2 Narrative: Patient laying supine Not in active pain getting IV opioids Hemodynamically stable Currently on room air Pleasant and cooperative Hypertensive Urinary Catheter Management: Elkins: Cath Placed During This Visit: yes Reason for Continuing Indwelling Catheter: Acute Urinary Retention or Obstruction Urinary Catheter Date of Insertion: 04/01/24 Data 04/02/24 04:28 04/02/24 04:28 Micro: Microbiology 04/01/24 15:00 Urine Culture - Preliminary Urine,Clean Catch A&P Assessment and plan (1) Cauda equina compression: (2) Acute urinary retention: (3) History of radiation therapy: (4) Secondary adenocarcinoma of bone: (5) Endometrial cancer: (6) Secondary malignancy of lymph nodes of head, face and neck: (7) Schwannoma: (8) Sciatica of right side: (9) Muscle spasticity: Plan We are uploading images for Dr. Clement to take a look, for then plan will be made after I hear back from Dr. Ac who is in touch with Dr. Clement I spoke with Dr. Charlton and Dr. Madison today as well Patient does seem to have cauda equina signs and symptoms of urinary tension not able to walk Attestations 2 Medical Necessity Statement*: Continue medical management Diagnoses Cauda equina compression G83.4 Acute urinary retention R33.8 History of radiation therapy Z92.3 Secondary adenocarcinoma of bone C79.51 Endometrial cancer C54.1 Secondary malignancy of lymph nodes of head, face and neck C77.0 Schwannoma D36.10 Sciatica of right side M54.31 Muscle spasticity M62.838
[2024-04-02] MEDS: HYDROmorphone 1 mg/mL INJ 1 mL 0.2 MG IVP (16:49)
--- NOTE | 2024-04-02 20:40 | MR_ITS ---
WS: [id number] MRI LUMBAR SPINE NONCONTRAST HISTORY: Urinary retention, history of endometrial cancer. COMPARISON: 01/24/2024, 06/14/2023, CT lumbar spine 04/01/2024, PET/CT 03/29/2024 TECHNIQUE: Sagittal and axial multisequence imaging is submitted. Mild scoliosis and curvature of the lumbar spine. Disc spaces are narrowed. T11, T2 hyperintense lesion. Mild disc space narrowing. Abnormal appearance of the conus and the nerve roots continuing into the lumbar region. There is thic kening and distortion of the nerve roots. This can be seen with arachnoiditis but with a history of u rinary retention tumor needs to be excluded. Also reviewing the PET/CT from 03/29/2024 there was incr eased uptake in the region of the conus and the nerve roots. This MRI's examination was performed wit hout contrast and there is significant motion artifact. L1-L2: Increased soft tissue in the thecal sac abutting the conus and the nerve roots. This correspon ds to the area of soft tissue thickening associated with the conus. This is also the area of mild enh ancement noted on the prior MRI of 01/24/2024. This area was suspicious for metastatic involvement jak lisa arachnoiditis. Appears to have progressed suggesting metastatic disease. L2-L3: Motion artifact. Mild narrowing of the RIGHT subarticular recess. Decreased signal in the RIGH T foramen. L3-L4: Facet joint arthritis. Central and bilateral foraminal stenosis, mild to moderate. L4-L5: Distortion of the nerve roots into the RIGHT lateral thecal sac. Nerve roots are thickened and clumped. Mild enhancement was noted on the prior study. L5-S1: Severe LEFT foraminal stenosis with increased soft tissue Note: I requested a review of the PET/CT findings to reevaluate the FDG uptake within the conus and n erve roots. Addendum was submitted on 04/02/2024 at 1:28 p.m. The addendum does indicate there is new progressive metastatic disease and less likely arachnoiditis involving the conus and the nerve roots . Finalized report has been submitted to the PET/CT report. Notified Maggie Pat MD at 04/02/2024 2:00 PM. MR/MR lumbar spine wo con* [id number] IMPRESSION: 1. Continued thickening, clumping and abnormal signal of the conus and nerve r oots extending into the lumbar region. This may be related to arachnoiditis but likely metastatic disease to the conus and lumbar nerve roots should be consid ered. I did review a prior PET/CT from 03/29/2024 and there is some increased F DG uptake in the expected location of the conus and nerve roots which was not p resent on a prior PET/CT of 07/11/2023. The findings involving the conus and the nerve roots were not present on 06/14/2023 MRI. 2. MRI is limited due to motion artifact and lack of IV contrast. Extent of tu mor cannot be completely determined on this noncontrast MRI. Please note there was also clumping and distortion of the nerve roots on the recent CT.
[2024-04-03] VITALS (11 sets, daily range): BP systolic 149–178; BP diastolic 88–96; PULSE 85–100; RESP 16–18; TEMP 36.6–37.2; O2SAT 95–100
[2024-04-03] MEDS: morphine IR 15 mg Tablet PO ×4 (02:14→20:23)
[2024-04-03] MEDS: sennosides-docusate Tablet 2 TAB PO (02:14)
[2024-04-03] MEDS: pantoprazole 40 mg SDV IVP ×2 (07:59→17:03)
[2024-04-03] MEDS: dexamethasone 4 mg Tablet PO ×2 (07:59→17:03)
[2024-04-03] MEDS: lisinopril 10 mg Tablet PO (07:59)
[2024-04-03] MEDS: morphine ER (12 HR) 15 mg Tablet PO ×2 (07:59→20:23)
[2024-04-03] MEDS: cefTRIAXone 1,000 MG in sodium chloride 0.9% (plus) 50 ML 100 MG IV (07:59)
[2024-04-03] MEDS: lactulose oral liq 20 gm/30 mL UDC PO (08:31)
--- NOTE | 2024-04-03 09:00 | CT_ITS ---
WS: [id number] CT HEAD TECHNIQUE: Noncontrast CT of the head obtained from the skullbase to the vertex. CLINICAL INFORMATION: FOR LP COMPARISON: None. DLP: 1041.[address] scans at [facility] use at least one of these dose optimization techniques: automated e xposure control; mA and/or kV adjustment per patient size (includes targeted exams where dose is matc hed to clinical indication); or iterative reconstruction. FINDINGS: No evidence of intracranial hemorrhage or mass effect. Ventricular system and basal cisterns are hernandez nt. Moderate small vessel changes with mild parenchymal volume loss. No extra-axial fluid collections . No evidence of mass or mass effect. Opacification of the LEFT frontal sinus and frontoethmoidal recess. Mastoid air cells are well aerate d. Vascular calcifications. CT/CT head wo con* [id number] IMPRESSION: 1. No evidence of intracranial hemorrhage or mass effect. 2. LEFT frontal sinusitis. 3. Moderate small vessel changes with mild parenchymal volume loss. 4. No acute intracranial findings.
--- NOTE | 2024-04-03 09:38 | PC.CHAP ---
Pastoral Care Encounter/Spiritual Assessment Type of Contact [] Declined industrial specialist visit [] Patient/Family/Request visit [] Outpatient visit [] Follow-up visit [] Physician referral [] Code/Alert [x] Routine visit [] Staff referral [] Actively dying [] Patient sleeping [] Family support [] [] Out of room [] Palliative care [] [] Receiving care in room [] Pre-surgical visit [] Trauma [] Long length of stay [] ICU visit [] Other: Relational/Emotional Strength [] Patient feels connected with others/family/visitors/staff [x] Distress [] Loneliness/isolation [] Abandonment Spirituality of Patient [] Person of Natasha [] Attends Orthodoxy of their Natasha [x] Believes in Prayer [] Reads Bible or Hinduism materials [] There are Spiritual issues to be addressed Virtualization Engineer Interventions [x] Prayer [x] Active listening [x] Non-anxious presence [x] Spiritual/emotional support [] Crisis/trauma care [] Spiritual counseling [] Bereavement support [] Provided bereavement packet [] Provided Bible/devotional materials [] Provided toy/stuffed animal, coloring book to patient or family member [] Provided Communion [] Anointing/[place] [] Salvation [x] Completed spiritual assessment [] Other: Impact on Illness or Injury [] Angry [] Fearful [x] Anxious [] Often cries [] Exhaustion [] Unable to work [] Unable to attend presybeterian [] Unable to walk/stand [] Unable to read [] Unable to drive [] Unable to eat/drink [] Unable to sleep [] Unable to be with family [] Patient intubated [] Other: Summary Time spent with patient 5 min
--- NOTE | 2024-04-03 09:44 | PC.NURSE ---
This nurse returned Xrays phone call back at 9:44am regarding Lumbar Puncture. Unable to reach them. Ext. [phone]
--- NOTE | 2024-04-03 10:20 | DCPLANNER ---
Urology referral sent to [facility] [place] -
--- NOTE | 2024-04-03 13:00 | P.PN_ITS ---
Subjective 2 Subjective: Seen this morning. Had a long discussion with Dr. Ac over the phone discussing recommendations from [facility]. Also discussed with radiation oncologist Dr. Renteria in person at bedside regarding patient's care. Reviewed all of patient's PET scan imaging with and myself and after discussion and evaluation of the patient it was decided that patient will go for emergent radiation today daily for 5 days. Seen patient in presence of radiation oncologist at bedside. Patient does have sensation bilaterally to lower extremities however she complains of numbness at times. Right leg significantly weaker than left leg. Patient unable to plantarflex or dorsiflex on the right leg. Laying in bed. at bedside. Vitals/I&O/Wt Last Vital Signs Temp 98.1 F 04/03/24 11:00 Pulse 85 04/03/24 11:00 Resp 16 04/03/24 11:00 BP 156/92 04/03/24 11:00 Pulse Ox 97 04/03/24 11:00 O2 Del Method Room Air 04/03/24 11:00 04/02/24 04/03/24 04/03/24 22:59 06:59 14:59 Intake Total 240 / 1650.000 50 / 50 Output Total 1050 / 1050 100 / 1150 1000 / 1000 Balance -810 / 600.000 -100 / 500.000 -950 / -950 Weight last 48 hrs Weight 45.444 kg Weight 46.357 kg Weight 48.534 kg Physical Exam 2 Narrative: Laying in bed appearing anxious at this time. Lungs clear to auscultation bilaterally. Abdomen soft nontender Right lower extremity strength 1 out of 5, sensation intact, unable to dorsiflex or plantarflex. Left lower extremity 4 out of 5, sensation intact able to dorsiflex and plantarflex. Did not check straight leg raise. Patient does state her leg is going numb during the examination. Examination was performed by radiation oncologist Dr. Rneteria. I was present at bedside. Urinary Catheter Management: Elkins: Cath Placed During This Visit: yes Reason for Continuing Indwelling Catheter: Acute Urinary Retention or Obstruction Urinary Catheter Date of Insertion: 04/01/24 Data 04/02/24 04:28 04/02/24 04:28 Micro: Microbiology 04/01/24 15:00 Urine Culture - Final Urine,Clean Catch A&P Assessment and plan (1) Acute urinary retention: (2) Urinary tract infection: (3) Secondary malignancy of lymph nodes of head, face and neck: (4) Schwannoma: (5) Endometrial cancer: (6) Secondary adenocarcinoma of bone: (7) History of radiation therapy: (8) Cauda equina compression: Plan #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 Plan for radiation daily x 5-day treatment total ? Zofran for nausea ? Dexamethasone 4 mg twice daily ? Continue Elkins catheter for neurogenic bladder ? Pain management ? Continue ceftriaxone for UTI. Await urine culture Full code DVT prophylaxis: SCDs Attestations 2 Medical Necessity Statement*: Cauda equina compression. Patient undergoing ration therapy at this time. Diagnoses Acute urinary retention R33.8 Urinary tract infection N39.0 Secondary malignancy of lymph nodes of head, face and neck C77.0 Schwannoma D36.10 Endometrial cancer C54.1 Secondary adenocarcinoma of bone C79.51 History of radiation therapy Z92.3 Cauda equina compression G83.4
--- NOTE | 2024-04-03 13:02 | PM.CONSULT ---
Providers/Reason For Consult Consulting Physician/Specialty*: Radiation oncology Reason for Consult*: Intramedullary disease seen on PET/CT associated with back pain and LE weakness Attending Physician: Jackie Farrell MD Primary Care Provider: Shiva Wolf MD History of Present Illness History of Present Illness Arti Marie is a 73 year old female with initial stage Ib high-grade serous carcinoma of the endometrium resected in July 2019. In October 2022 she had left neck mass. She was visiting family in [facility] where her daughter works as a nurse pottery decoration designer. Fine-needle aspirate of the neck mass in November 2022 revealed metastatic carcinoma from gynecologic primary. PET/CT from November 2022 by report revealed uptake in the left supraclavicular mass subcentimeter pulmonary nodules periaortic adenopathy and mass in the L5 neuroforamen with uptake as well. MRI of the lumbar spine revealed enhancing mass around the right neuroforamen at L5-S1 that extended into the psoas muscle measuring 5.2 cm. She received palliative radiation therapy in November 2022 at [facility] in [facility] in November 2022. Records for this are not yet available. She then received palliative systemic chemotherapy with carboplatinum paclitaxel and bevacizumab. She received chemotherapy through May 2023 and stopped due to worsening neuropathy primarily involving the right leg. MRI at that time revealed resolution of the lobulated soft tissue mass previously noted at L5. Follow-up PET/CT scan here on March 29, 2024 revealed intramedullary uptake within the spinal cord and lumbar nerve roots from the top of L3 extending superior to T12 worrisome for intramedullary metastatic disease on my review there was a single periaortic lymph node and a very distended bladder previously noted supraclavicular adenopathy was now absent on my review. Following the finding of hugely distended bladder on PET/CT she was admitted and now has a Elkins placed for her neurogenic bladder. She notes severe low back pain and reduction in ambulation now requiring assistance to stand prior to admission she was able to ambulate with some reduction of right leg strength and walked with the assistance of a walker. Following admission lumbar MRI scan from April 02, 2024 revealed increased soft tissue in the thecal sac abutting the conus and the nerve roots this was also in the area of mild enhancement noted on the prior MRI from January 24, 2024 this area was suspicious for metastatic involvement and with progression noted it was highly suggestive for metastatic disease. Medications/Allergies Home Medications Medication Instructions Recorded Confirmed Last Taken Type ascorbic acid (vitamin C) 500 mg 500 mg PO DAILY 02/01/23 04/01/24 1 Week Ago History capsule ~03/25/24 cholecalciferol (vitamin D3) 125 125 mcg PO DAILY 02/01/23 04/01/24 1 Week Ago History mcg (5,000 unit) capsule ~03/25/24 magnesium 200 mg tablet 200 mg PO DAILY 02/01/23 04/01/24 1 Week Ago History ~03/25/24 vitamin B complex 1 tab PO DAILY 02/01/23 04/01/24 1 Week Ago History ~03/25/24 zinc sulfate 25 mg zinc (110 mg) 25 mg PO DAILY 02/01/23 04/01/24 1 Week Ago History tablet ~03/25/24 aspirin 325 mg tablet 325 mg PO DAILY PRN pain 02/06/23 04/01/24 1 Week Ago History ~03/25/24 Wheeled Seated Walker #1 ea 02/28/23 04/01/24 Unknown Rx diphenoxylate-atropine 2.5 1 tab PO TID PRN diarrhea #30 tabs 11/16/23 04/01/24 Unknown Rx mg-0.025 mg tablet (Lomotil) lidocaine-prilocaine 2.5 %-2.5 % 1 applic topical .COMPLEX PRN 01/22/24 04/01/24 Unknown Rx topical cream numbing cream #30 grams sennosides 8.6 mg-docusate sodium 2 tab-cap (2 x 8.6-50 mg) PO BID 02/22/24 04/01/24 1 Week Ago Rx 50 mg tablet (Senokot-S) PRN constipation #120 tabs ~03/25/24 dexamethasone 4 mg tablet 4 mg PO DAILY #14 tabs 03/25/24 04/01/24 1 Week Ago Rx ~03/25/24 morphine 15 mg immediate release 15 mg PO Q6H 30 days #120 tabs 03/25/24 04/01/24 04/01/24 Rx tablet morphine 15 mg tablet,extended 15 mg PO Q12H 30 days #60 tabs 03/25/24 04/01/24 04/01/24 Rx release lisinopril 10 mg tablet 10 mg PO DAILY 04/01/24 04/01/24 1 Week Ago History ~03/25/24 sulfamethoxazole 800 1 tab PO BID 7 days #14 tabs 04/01/24 Unknown Rx mg-trimethoprim 160 mg tablet (Bactrim DS) Allergies Allergy/AdvReac Type Severity Reaction Status Date / Time Penicillins AdvReac Intermediate nausea Verified 03/04/24 10:24 cefdinir AdvReac Intermediate jittery Uncoded 03/04/24 10:24 Current Medications Generic Name Dose Route Start Last Admin Trade Name Freq PRN Reason Stop Dose Admin Dexamethasone 4 mg 04/01/24 21:00 04/03/24 07:59 Dexamethasone 4 Mg Tablet PO 4 mg QID DEANN Administration Hydromorphone HCl 0.2 mg 04/01/24 20:40 04/02/24 16:49 Hydromorphone 1 Mg/Ml Inj 1 Ml IVP 0.2 mg Q4H PRN Administration SEVERE PAIN Ceftriaxone Sodium 1,000 mg/ 50 mls @ 100 mls/hr 04/02/24 09:00 04/03/24 08:32 Sodium Chloride IV Infused DAILY DEANN Infusion Protocol Lactulose 20 gm 04/01/24 20:40 04/03/24 08:31 Lactulose Oral Liq 20 Gm/30 Ml Udc PO 20 gm DAILY PRN Administration constipation Lisinopril 10 mg 04/02/24 09:00 04/03/24 07:59 Lisinopril 10 Mg Tablet PO 10 mg DAILY DEANN Administration Morphine Sulfate 15 mg 04/01/24 20:40 04/03/24 07:59 Morphine Er (12 Hr) 15 Mg Tablet PO 15 mg Q12H DEANN Administration Morphine Sulfate 15 mg 04/01/24 20:40 04/03/24 07:59 Morphine Ir 15 Mg Tablet PO 15 mg Q6H DEANN Administration Pantoprazole Sodium 40 mg 04/02/24 09:00 04/03/24 07:59 Pantoprazole 40 Mg Sdv IVP 40 mg BID DEANN Administration Senna/Docusate Sodium 2 tab 04/01/24 20:40 04/03/24 02:14 Sennosides-Docusate Tablet PO 2 tab BID PRN Administration constipation PFSH Acute PFSH: Medical History Degenerative joint disease of spine Nephrolithiasis Endometrial cancer Sciatica associated with disorder of lumbar spine Surgical History History of needle biopsy (11/10/22) FNA biopsy of left neck mass History of hysterectomy with bilateral oophorectomy (07/08/19) Modified radical hysterectomy, bilateral salpingo-oophorectomy, and lymph node dissection History of back surgery (08/12/22) L3-4 and L4-5 laminectomy/partial facetectomy Family History Mother Diabetes Father Stroke Denies family history of CAD (coronary artery disease) Clotting disorder Dementia Hyperlipidemia Psychiatric illness Chronic kidney disease (CKD) Suicide Anesthesia complication Bleeding disorder Family history of premature coronary artery disease Lung disease Cancer Hypertension Social History Smoking and tobacco/nicotine status: never used tobacco/nicotine Vitals/I&O/Wt Last Vital Signs Temp 98.1 F 04/03/24 11:00 Pulse 85 04/03/24 11:00 Resp 16 04/03/24 11:00 BP 156/92 04/03/24 11:00 Pulse Ox 97 04/03/24 11:00 O2 Del Method Room Air 04/03/24 11:00 04/02/24 04/03/24 04/03/24 22:59 06:59 14:59 Intake Total 240 / 1650.000 50 / 50 Output Total 1050 / 1050 100 / 1150 1000 / 1000 Balance -810 / 600.000 -100 / 500.000 -950 / -950 Weight last 48 hrs Weight 45.444 kg Weight 46.357 kg Weight 48.534 kg Physical Exam Narrative: Physical exam revealed a cachectic woman in some level of pain distress on transfers. She was alert and appropriate. Limited neurologic examination revealed diminished global strength of the right leg and diminished sensation relatively intact strength and sensation in the left leg. Ambulation was not tested. Urinary Catheter Management: Elkins: Cath Placed During This Visit: yes Reason for Continuing Indwelling Catheter: Acute Urinary Retention or Obstruction Urinary Catheter Date of Insertion: 04/01/24 Data 04/02/24 04:28 04/02/24 04:28 Micro: Microbiology 04/01/24 15:00 Urine Culture - Final Urine,Clean Catch A&P Assessment and plan (1) Cauda equina compression: (2) Lumbar stenosis with neurogenic claudication: Plan In summary my impression is that of progressive high-grade serous adenocarcinoma of the endometrium. She has had previous metastatic disease in distant lymph nodes as well as in the L5-S1 nerve root distribution. The latter of which was treated well with palliative radiation with complete resolution she now has intramedullary spinal cord and conus involvement extending from T12-L3 this is resulted in increasing low back pain and lower extremity weakness primarily on the left side. At this time I recommend a short course of palliative radiation to 20 Verdin in 5 fractions with steroid coverage incorporating T12 to L3 field. While we do not have outside data on treatment design, this treatment is not anticipated to overlap with the previous treatment field. Consult Attestations Medical Necessity Statement: Palliative radiation is essential in trying to improve her overall neurologic function and reduce her back pain Time Spent in Patient Care: 30 minutes Coding Level of Care Code 96521 High MDM includes number and complexity of problems actively addressed during encounter (Complex PET/CT and L spine MRI findings with prior history of L/S spine radiation.), amount and/or complexity of data reviewed/ordered [ previous or external records, independent historian, independent test interpretation and other healthcare professional discussion] and described risk of complication, morbidity or mortality of management as documented Diagnoses Cauda equina compression G83.4 Lumbar stenosis with neurogenic claudication M48.062
[2024-04-03] MEDS: HYDROmorphone 1 mg/mL INJ 1 mL 0.2 MG IVP (17:38)
[2024-04-04] VITALS (9 sets, daily range): BP systolic 131–195; BP diastolic 86–99; PULSE 80–103; RESP 15–20; TEMP 36.6–36.8; O2SAT 94–100
[2024-04-04] MEDS: HYDROmorphone 1 mg/mL INJ 1 mL 0.2 MG IVP (01:26)
[2024-04-04] MEDS: morphine IR 15 mg Tablet PO ×4 (02:38→23:20)
[2024-04-04 06:32] LABS: Basophils % 0.1 %; Eosinophils % 0.3 %; Lymphocytes # 0.9 10^3/uL (0.8-4.8); Lymphocytes % 12.1 %; Mean Corpuscular HGB Conc 33.6 g/dL (30-55); Mean Corpuscular Hemoglobin 31.4 pg (27-33); Mean Corpuscular Volume 93.5 fl (85-98); Monocytes # 0.4 10^3/uL (0.2-0.9); Monocytes % 5.7 %; Neutrophils # 5.72 10^3/uL (1.8-7.7); Neutrophils % 81.5 %; Nucleated Red Blood Cells % 0 %; Platelet Count 360 10^3/cmm (157-399); Red Blood Count 3.53 10^6/uL (3.85-5.65); Red Cell Distribution Width 12.9 % (12.1-15.1); White Blood Count 7.02 10^3/uL (3.29-11.43)
[2024-04-04 07:06] LABS: Anion Gap 13.7 (5-19); Blood Urea Nitrogen 13 mg/dL (8-23); Calcium 9.2 mg/dL (8.5-10.5); Carbon Dioxide 27 mmol/L (22-29); Chloride 92 mmol/L (98-107); Creatinine Clr Calc Pharmacy 44.9312; Glucose 108 mg/dL (65-115); Osmolality Calculated 269 mOsm/kg (285-295); Potassium 3.7 mmol/L (3.5-5.1); Sodium 129 mmol/L (136-145)
[2024-04-04] MEDS: cefTRIAXone 1,000 MG in sodium chloride 0.9% (plus) 50 ML 100 MG IV (09:21)
[2024-04-04] MEDS: morphine ER (12 HR) 15 mg Tablet PO ×2 (09:22→20:24)
[2024-04-04] MEDS: lisinopril 10 mg Tablet PO (09:22)
[2024-04-04] MEDS: pantoprazole 40 mg SDV IVP ×2 (09:22→17:38)
[2024-04-04] MEDS: dexamethasone 4 mg Tablet PO ×2 (09:22→17:38)
--- NOTE | 2024-04-04 12:26 | P.PN_ITS ---
Subjective 2 Subjective: Patient underwent first radiation treatment yesterday and is going for her second treatment here shortly. not present at bedside at this time. Patient is alert and oriented to self however unable to answer questions completely appropriately. She is tearful and keeps repeating I want my to be here. She is still unable to have much movement with the right leg. No significant change in physical exam compared to yesterday. Vitals/I&O/Wt Last Vital Signs Temp 98.3 F 04/04/24 11:32 Pulse 103 H 04/04/24 11:32 Resp 16 04/04/24 11:32 BP 195/98 04/04/24 11:32 Pulse Ox 100 04/04/24 11:32 O2 Del Method Room Air 04/04/24 11:32 04/03/24 04/04/24 04/04/24 22:59 06:59 14:59 Intake Total 290 / 290 Output Total 750 / 1750 200 / 1950 Balance -750 / -1700 -200 / -1900 290 / 290 Weight last 48 hrs Weight 45.444 kg Physical Exam 2 Narrative: Laying in bed appearing anxious at this time. Lungs clear to auscultation bilaterally. Abdomen soft nontender Right lower extremity strength 1 out of 5, sensation intact, unable to dorsiflex or plantarflex. Left lower extremity 4 out of 5, sensation intact able to dorsiflex and plantarflex. Did not check straight leg raise. Patient does state her leg is going numb during the examination. Examination was performed by radiation oncologist Dr. Renteria. I was present at bedside. Physical exam not any different compared to yesterday. 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 Consultation appreciated. ? Plan for radiation daily x 5-day treatment total ? Zofran for nausea ? Dexamethasone 4 mg twice daily ? Continue Elkins catheter for neurogenic bladder ? Pain management ? Continue ceftriaxone for UTI. Await urine culture ?Urine culture negative. ? Will complete ceftriaxone x 5 days total ? Will discuss with patient's today regarding plan going forward. Full code DVT prophylaxis: SCDs Attestations 2 Medical Necessity Statement*: Cauda equina compression. Patient undergoing ration therapy at this time. Diagnoses Acute urinary retention R33.8 Urinary tract infection N39.0 Secondary malignancy of lymph nodes of head, face and neck C77.0 Schwannoma D36.10 Endometrial cancer C54.1 Secondary adenocarcinoma of bone C79.51 History of radiation therapy Z92.3 Cauda equina compression G83.4
[2024-04-04 14:42] LABS: Urine Random Sodium 37 mmol/L
[2024-04-04] MEDS: lactulose oral liq 20 gm/30 mL UDC PO (19:16)
[2024-04-04] MEDS: hyDRALAzine 20 mg/mL INJ 1 mL 5 MG IVP (23:21)
[2024-04-05] VITALS (10 sets, daily range): BP systolic 127–192; BP diastolic 75–108; PULSE 89–105; RESP 16–18; TEMP 36.4–36.9; O2SAT 97–99
[2024-04-05] MEDS: ALPRAZolam 0.5 mg Tablet PO (00:16)
[2024-04-05 05:18] LABS: Anion Gap 14.2 (5-19); Blood Urea Nitrogen 12 mg/dL (8-23); Calcium 8.7 mg/dL (8.5-10.5); Carbon Dioxide 24 mmol/L (22-29); Chloride 95 mmol/L (98-107); Creatinine Clr Calc Pharmacy 46.2768; Glucose 106 mg/dL (65-115); Osmolality Calculated 268 mOsm/kg (285-295); Potassium 4.2 mmol/L (3.5-5.1); Sodium 129 mmol/L (136-145)
[2024-04-05] MEDS: morphine ER (12 HR) 15 mg Tablet PO (08:06)
[2024-04-05] MEDS: dexamethasone 4 mg Tablet PO (08:06)
[2024-04-05] MEDS: lisinopril 10 mg Tablet PO (08:07)
[2024-04-05] MEDS: pantoprazole 40 mg SDV IVP (08:07)
[2024-04-05] MEDS: cefTRIAXone 1,000 mg SDV 1000 MG IVP (08:07)
[2024-04-05] MEDS: hyDRALAzine 20 mg/mL INJ 1 mL 10 MG IVP (09:08)
[2024-04-05] MEDS: HYDROmorphone 1 mg/mL INJ 1 mL 0.2 MG IVP ×2 (09:15→14:29)
--- NOTE | 2024-04-05 09:56 | PC.SOCIAL ---
IMM Update pg 2 of IMM updated and reviewed w/ patients and copy provided and copy dated, initialed and placed in chart.
[2024-04-05] MEDS: polyethylene glycol 3350 Pkt 17 gm PO (11:02)
--- NOTE | 2024-04-05 12:44 | P.DS_ITS ---
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 Please see progress notes for further detail. Radiation oncology was consulted and patient was started with radiotherapy and had 3 treatments in the hospital. Her treatments were Monday and Monday was to be skipped and rest of 2 treatments were going to be Monday and Monday. On Monday discussed with patient's and patient who decided to go home with hospice and to come back as an outpatient on Monday and Monday to complete the radiotherapy. Patient was sent home on pain medication and a dexamethasone taper. She was also given cefdinir for UTI. She was sent home with a [facility]. Hospice company was notified. Case management assisted with discharge. All questions answered. Patient sent home with on hospice. Discussed with Dr. Madison over phone. Physical Exam Narrative: Laying in bed appearing anxious at this time. Lungs clear to auscultation bilaterally. Abdomen soft nontender Right lower extremity strength 1 out of 5, sensation intact, unable to dorsiflex or plantarflex. Left lower extremity 4 out of 5, sensation intact able to dorsiflex and plantarflex. Not much change in PE. Still in pain and unable to move right leg. At most is able to move her right toes a little. Physical exam not any different compared to yesterday. Urinary Catheter Management: [facility]: Cath Placed During This Visit: yes Reason for Continuing Indwelling Catheter: Acute Urinary Retention or Obstruction Urinary Catheter Date of Insertion: 04/01/24 Discharge Data Studies Completed and Pending Completed Studies During Hospitalization Category Date Time Status CT guided radtherapyplan 54490 Routine Cat Scan 04/03/24 12:[address] head wo con* [id number] Stat Cat Scan 04/03/24 09:[address] lumbar spine wo/w con [id number] Stat Cat Scan 04/01/24 13:53 Completed MR lumbar spine wo con* [id number] Routine MRI 04/02/24 20:40 Completed Pending at discharge Category Date Time Status Osmolality Serum Routine Lab 04/04/24 14:50 Received Osmolality Urine Routine Lab 04/04/24 13:53 Received Radiology Impressions Lumbar Spine CT 04/01/24 13:53 IMPRESSION: 1. There is apparent clumping and distortion of the nerve roots at the level of L3-L4 and L4-L5 which can be seen in the setting arachnoiditis. If clinically indicated this can be further assessed with lumbar spine MRI. 2. No significant interval change in the degree of posterior disc protrusion in the lumbar spine compared to the prior lumbar MRI dated 01/24/2024 given differences in technique. 3. There is apparent circumferential irregular bladder wall thickening seen at the dome of the bladder though this is incompletely visualized and assessed on this examination. Lumbar Spine MRI 04/02/24 20:40 IMPRESSION: 1. Continued thickening, clumping and abnormal signal of the conus and nerve roots extending into the lumbar region. This may be related to arachnoiditis but likely metastatic disease to the conus and lumbar nerve roots should be considered. I did review a prior PET/CT from 03/29/2024 and there is some increased FDG uptake in the expected location of the conus and nerve roots which was not present on a prior PET/CT of 07/11/2023. The findings involving the conus and the nerve roots were not present on 06/14/2023 MRI. 2. MRI is limited due to motion artifact and lack of IV contrast. Extent of tumor cannot be completely determined on this noncontrast MRI. Please note there was also clumping and distortion of the nerve roots on the recent CT. Head CT 04/03/24 09:00 IMPRESSION: 1. No evidence of intracranial hemorrhage or mass effect. 2. LEFT frontal sinusitis. 3. Moderate small vessel changes with mild parenchymal volume loss. 4. No acute intracranial findings. Laboratory Results WBC 7.02 10^3/uL (3.29-11.43) 04/04/24 04:32 RBC 3.53 10^6/uL (3.85-5.65) L 04/04/24 04:32 Hgb 11.10 g/dL (11.27-16.99) L 04/04/24 04:32 Hct 33.0 % (36-47) L 04/04/24 04:32 MCV 93.5 fl (85-98) 04/04/24 04:32 MCH 31.4 pg (27-33) 04/04/24 04:32 MCHC 33.6 g/dL (30-55) 04/04/24 04:32 RDW 12.9 % (12.1-15.1) 04/04/24 04:32 Plt Count 360 10^3/cmm (157-399) 04/04/24 04:32 MPV 9.0 fL (7.4-10.4) 04/04/24 04:32 Neut % (Auto) 81.5 % 04/04/24 04:32 Lymph % (Auto) 12.1 % 04/04/24 04:32 Loving % (Auto) 5.7 % 04/04/24 04:32 Eos % (Auto) 0.3 % 04/04/24 04:32 Baso % (Auto) 0.1 % 04/04/24 04:32 Neut # (Auto) 5.72 10^3/uL (1.8-7.7) 04/04/24 04:32 Lymph # (Auto) 0.9 10^3/uL (0.8-4.8) 04/04/24 04:32 Loving # (Auto) 0.4 10^3/uL (0.2-0.9) 04/04/24 04:32 Eos # (Auto) 0.0 10^3/uL (0.0-0.8) 04/04/24 04:32 Baso # (Auto) 0.0 10^3/uL (0.0-0.1) 04/04/24 04:32 Nucleated RBC % (auto) 0 % 04/04/24 04:32 Nucleated RBCs # 0.0 /100WBC 04/04/24 04:32 Sodium 129 mmol/L (136-145) L 04/05/24 04:10 Potassium 4.2 mmol/L (3.5-5.1) 04/05/24 04:10 Chloride 95 mmol/L (98-107) L 04/05/24 04:10 Carbon Dioxide 24 mmol/L (22-29) 04/05/24 04:10 Anion Gap 14.2 (5-19) 04/05/24 04:10 BUN 12 mg/dL (8-23) 04/05/24 04:10 Creatinine 0.3 mg/dL (0.5-0.9) L 04/05/24 04:10 GFR Calculation Not Reportable 04/05/24 04:10 Glucose 106 mg/dL (65-115) 04/05/24 04:10 Calculated Osmolality 268 mOsm/kg (285-295) L 04/05/24 04:10 Calcium 8.7 mg/dL (8.5-10.5) 04/05/24 04:10 Magnesium 1.8 mg/dL (1.7-2.3) 04/02/24 04:28 Total Bilirubin 0.4 mg/dL (0.15-1.2) 04/01/24 14:07 AST 28 U/L (0-32) 04/01/24 14:07 ALT 17 U/L (0-33) 04/01/24 14:07 Alkaline Phosphatase 49 U/L (35-105) 04/01/24 14:07 C-Reactive Protein 3.0 mg/L (0.0-4.9) 04/02/24 04:28 Total Protein 6.5 g/dL (6.6-8.7) L 04/01/24 14:07 Albumin 4.1 g/dL (3.5-5.2) 04/01/24 14:07 Globulin 2.4 g/dL (1.3-4.6) 04/01/24 14:07 Vitamin B12 > 2000 pg/mL (232-1245) H 04/01/24 14:07 Procalcitonin 0.06 ng/mL (0-0.5) 04/01/24 14:07 Urine Color Yellow (Yellow) 04/01/24 15:00 Urine Appearance Cloudy (CLEAR) A 04/01/24 15:00 Urine pH 7.0 (5-7) 04/01/24 15:00 Ur Specific [place] 1.010 (1.005-1.030) 04/01/24 15:00 Urine Protein Trace (Negative) A 04/01/24 15:00 Urine Glucose (UA) Negative (Normal) 04/01/24 15:00 Urine Ketones Negative (Negative) 04/01/24 15:00 Urine Blood 1+ (Negative) A 04/01/24 15:00 Urine Nitrate Negative (Negative) 04/01/24 15:00 Urine Bilirubin Negative (Negative) 04/01/24 15:00 Urine Urobilinogen 0.2 mg/dL (Negative) 04/01/24 15:00 Ur Leukocyte Esterase 2+ (Negative) A 04/01/24 15:00 Urine RBC 11-20 /hpf (0-2) H 04/01/24 15:00 Urine WBC >100 /hpf (0-5) H 04/01/24 15:00 Ur Squamous Epith Cells 0-5 /hpf (0-5) 04/01/24 15:00 Amorphous Sediment Not Reportable 04/01/24 15:00 Urine Bacteria 1+ /hpf (NONE) H 04/01/24 15:00 Hyaline Casts 1.65 /lpf 04/01/24 15:00 Ur Random Sodium 37 mmol/L 04/04/24 13:53 Vitals Last Vital Signs Temp 98.2 F 04/05/24 11:26 Pulse 105 H 04/05/24 11:26 Resp 16 04/05/24 11:26 BP 127/75 04/05/24 11:26 Pulse Ox 97 04/05/24 11:26 O2 Del Method Room Air 04/05/24 11:26 Discharge Plan Discharge Patient Disposition: Hospice - Home Condition: Fair Prescriptions: New cefdinir 300 mg capsule 300 mg PO BID Qty: 4 0RF dexamethasone 4 mg Tablet See Rx Instructions .ROUTE .COMPLEX Qty: 30 0RF Rx Instructions: 4 mg qid x 3 days 4 mg bid x 3 days 4 mg daily thereafter polyethylene glycol 3350 17 gram Powder In Packet 17 g PO DAILY Qty: 30 0RF Continued sennosides-docusate sodium [Senokot-S] 8.6-50 mg tablet 2 tab-cap PO BID PRN (Reason: constipation) Qty: 120 11RF (DME) Wheeled Seated Walker See Rx Instructions .Route .MEDSUPPLY Qty: 1 0RF Rx Instructions: As directed morphine 15 mg tablet extended release 15 mg PO Q12H 30 Days Qty: 60 0RF morphine 15 mg tablet 15 mg PO Q6H 30 Days Qty: 120 0RF Discontinued ascorbic acid (vitamin C) 500 mg capsule 500 mg PO DAILY cholecalciferol (vitamin D3) 125 mcg (5,000 unit) capsule 125 mcg PO DAILY magnesium 200 mg tablet 200 mg PO DAILY zinc sulfate 25 mg zinc (110 mg) tablet 25 mg PO DAILY vitamin B complex Tablet 1 tab PO DAILY aspirin 325 mg tablet 325 mg PO DAILY PRN (Reason: pain) diphenoxylate-atropine [Lomotil] 2.5-0.025 mg tablet 1 tab PO TID PRN (Reason: diarrhea) Qty: 30 0RF lidocaine-prilocaine 2.5-2.5 % cream 1 applic topical .COMPLEX PRN (Reason: numbing cream ) Qty: 30 2RF Rx Instructions: apply a quarter size 30-45 minutes prior to lab draw. Cover with Cellophane after application PRN; dexamethasone 4 mg tablet 4 mg PO DAILY Qty: 14 0RF lisinopril 10 mg tablet 10 mg PO DAILY No Action morphine 20 mg/5 mL (4 mg/mL) solution 20 mg PO Q6H 30 Days Qty: 600 0RF fentanyl 25 mcg/hr patch 72 hour 1 patch transdermal Q72H 30 Days Qty: 10 0RF Discharge Orders: Discharge Order (Routine); Ordered 04/05/24 Ordered By: Jackie Farrell Other Ambulatory Orders: DME: Wheelchair (Order) Location: None Selected Ordered By: Maggie Pat Referrals: Amrit Madison MD [Hospitalist] - (FAXED FOR APPOINTMENT PATIENT WILL COME TO [facility] ON MONDAY AT 10:00) Henrik Renteria MD [Hospitalist] - 1-3 days Shiva Wolf MD [Primary Care Provider] - 4-7 days (We have notified your physician's clinic of the need for a follow-up appointment to be scheduled. If you have not heard from them within the next 2 business days, please call them directly. ) Discharge Diet: Regular Discharge Activity: Resume usual activity Patient Instructions: Hospice Care, Opioid Safety, Pain Management Activity Restrictions/Additional Instructions: Please return to radiation oncology department Monday and Monday to complete radiation treatment. Discharge Attestations Time Spent in Discharge Care*: less than 30 min Quality Metrics Clinical Quality Measures [ No reported AMI, CVA or VTE this stay] Coding Level of Care Code Acute Code for Chg Fwd Diagnoses Acute urinary retention R33.8 Urinary tract infection N39.0 Secondary malignancy of lymph nodes of head, face and neck C77.0 Schwannoma D36.10 Endometrial cancer C54.1 Secondary adenocarcinoma of bone C79.51 History of radiation therapy Z92.3 Cauda equina compression G83.4
[2024-04-05] MEDS: morphine IR 15 mg Tablet PO (14:30)
[2024-04-05] MEDS: lactulose oral liq 20 gm/30 mL UDC PO (14:32)
--- NOTE | 2024-04-05 14:38 | PC.NURSE ---
De-accessed port a cath. Applied 2x2 and tegaderm. Patient tolerated well.
--- NOTE | 2024-04-05 14:39 | PC.NURSE ---
Discharge Note Patient discharged to home via private vehicle accompanied by . Discharge instructions reviewed with patient and/or security representative. Mobile pharmacy medications and/or prescriptions provided. Belongings/home medications returned.
[2024-04-05 16:09] LABS: Osmolality Urine 308 mOsm/kg (50-1200)
[2024-04-05 16:19] LABS: Osmolality Serum 270 mOsm/kg (278-305)
== END 2024-04-05 15:15 | disposition hospice, home (50) | DRG 74 ==
LOC: ER 18:23 → MEDSURG 19:59
PROVIDERS: Physician Assistant; Admitting Provider Internal Medicine; Emergency Provider Physician Assistant; PCP Family Medicine; Visit Provider Internal Medicine
DX: G83.4 Cauda equina syndrome (principal); C77.0 Secondary and unspecified malignant neoplasm of lymph nodes of head, face and neck; C79.51 Secondary malignant neoplasm of bone; C79.89 Secondary malignant neoplasm of other specified sites; E87.1 Hypo-osmolality and hyponatremia; N39.0 Urinary tract infection, site not specified; C54.1 Malignant neoplasm of endometrium; K59.00 Constipation, unspecified; R33.9 Retention of urine, unspecified; M62.838 Other muscle spasm; G62.0 Drug-induced polyneuropathy; I10 Essential (primary) hypertension; Z79.82 Long term (current) use of aspirin; Z79.891 Long term (current) use of opiate analgesic; Z90.710 Acquired absence of both cervix and uterus; Z90.722 Acquired absence of ovaries, bilateral; Z98.890 Other specified postprocedural states; Z92.21 Personal history of antineoplastic chemotherapy
CPT/HCPCS: 36415; 51702; 51798; 70450; 72133; 72148; 77290; 77295; 77300; 77334; 77336; 77387; 77412; 80048; 80053; 81001; 82607; 83735; 83930; 83935; 84145; 84300; 85025; 86140; 87086; 96374; 96375; 99285; G0378; J0360; J0696; J1171; J2270; J2470; J7030; J8540

== ENCOUNTER 2024-04-09 14:49 | Oncology outpatient (recurring) (ONCR) | payer MEDICARE, SELFPAY ==
[2024-03-25 11:20] VITALS: RESP 17
[2024-03-25] MEDS: morphine 4 mg/mL SDV 1 mL 1 MG IVP (11:20)
[2024-03-25 14:07] VITALS: RESP 17
[2024-03-25] MEDS: morphine 4 mg/mL SDV 1 mL 1 MG SUBCUT (14:07)
[2024-03-25 14:40] VITALS: BP 100/68; PULSE 87; RESP 17; O2SAT 99
--- NOTE | 2024-03-29 12:30 | PETR_ITS ---
PROCEDURE INFORMATION: Exam: PET/CT Skull Base to Mid-thigh Exam date and time: 03/29/2024 1:32 PM Age: 73 years old Clinical indication: Condition or disease; Primary cancer: Malignant neoplasm of endometrium; Initial oncological staging assessment; Prior surgery; Surgery date: 6+ months; Surgery type: Hyst, port, neck, kidney stone removal, lumbar; Additional info: Surveillance, weight loss, increased low back pain, does not need pa from insurance LABS AND CLINICAL REPORTS: Glucose: 108 mg/dl Treatment strategy for malignancy (PET staging): Initial Staging (PI) TECHNIQUE: Imaging protocol: Following at least four-hour fasting and following the injection of radiopharmaceutical, low dose CT images were obtained. Then, PET images were obtained. Attenuation corrected images were constructed using the CT scan. Fused images of PET and CT were reviewed. The standardized uptake values (SUV) reported below are maximum values within a region of interest, expressed in gm/ml. Exam includes orbital meatal line to mid-thigh. Radiopharmaceutical: 10.84 mCi F-18 FDG (Fluorodeoxyglucose), IV. Time of imaging post radiopharmaceutical administration: 1 hour Injection site: RIGHT AC COMPARISON: PT PET skull to thigh SUBS [id number] 07/11/2023, CT chest abdomen pelvis 12/21/2023 FINDINGS: Tubes, catheters and devices: Port catheter placed via the right internal jugular vein terminates in the right atrium. Brain: Visualized brain has normal physiologic uptake. Pharynx: No abnormal uptake. Larynx: No abnormal uptake. Lungs, pleura and trachea: No abnormal uptake. No suspicious lung nodules or masses. No pleural effusion. Heart: Normal physiologic uptake. There is no cardiomegaly. There is no pericardial effusion. Mediastinal space: Diffusely increased uptake up to 5.5 SUV in the esophagus for clinical correlation with esophagitis. No abnormal wall thickening or dilatation or the esophagus. Liver: No abnormal uptake. Gallbladder and biliary ducts: No abnormal uptake. No calcified gallstones. Pancreas: No abnormal uptake. Spleen: No abnormal uptake. No splenomegaly. Small calcified granulomas. Adrenal glands: No abnormal uptake. Kidneys and ureters: Normal physiologic uptake. No hydronephrosis. Stomach and bowel: No abnormal uptake. Intraperitoneal and retroperitoneal spaces: No abnormal uptake. No ascites. Bladder: Bladder is over distended with the bladder dome at the level of the umbilicus with layering excreted FDG compatible with urinary retention. No abnormal wall thickening, no stones. Significant urinary leak in the padding. Reproductive: No abnormal uptake. The uterus is absent post surgically. Vasculature: No abnormal uptake. Lymph nodes: New about 1 cm aortocaval lymph node on series 301 image 190 measures 11.6 SUV. Persistent about 1 cm nodule immediately anteriorly to the aorta on series 301 image 177 currently measures 4.7 SUV, previously 3.5 SUV. No FDG avid lymphadenopathy in the head, neck, chest, pelvis, and extremities. Skeleton: No abnormal uptake in the visualized axial and appendicular skeleton. Soft tissues: No abnormal uptake in the visualized head, neck, chest, abdomen, pelvis, and extremities. PET/PET skull to thigh SUBS [id number] IMPRESSION: In comparison with 07/11/2023: 1. There is progressive disease with one new about 1 cm retroperitoneal aortocaval lymph node with high uptake of 11.6 SUV, and mild increase in activity in previously seen preaortic retroperitoneal lymph node from 3.5 SUV to 4.7 SUV. 2. There is new urinary retention with large postvoiding residual in the bladder and urinary leak. 3. There is new diffuse increased uptake in the esophagus suggestive of esophagitis.
[2024-04-08 10:57] VITALS: RESP 16
[2024-04-08] MEDS: morphine 4 mg/mL SDV 1 mL SUBCUT (10:57)
[2024-04-08 11:04] VITALS: BP 121/96; PULSE 84
--- NOTE | 2024-04-08 13:22 | ONCRAD TMN_ITS ---
Radiation Oncology Weekly Treatment Management Patient: Arti Marie MR#: [id number] : 1950 Attending Physician: Dr. 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 ID: [id number], Energy: 15X, Dose/Fx (cGy): 400, #Fx: 4 / 5, Dose Correction (cGy): 0, Total Dose Delivered (cGy): 1,600, Start Date: 04/03/2024, Elapsed Days: 5 Reason for visit: The patient is being seen today as part of their regularly scheduled weekly on treatment visits to assess for acute toxicities from radiotherapy. Review of Systems: Patient was DC???d to home on Monday. At home with spouse and daughter. On DXM, MSO4 IR 15 mg and MSO4 ER 15 mg BID. Pain not well controlled and pills not easily swallowed. Pain in low back is unchanged. Hospice coming to the home on 04/10/2024. Vital Signs: Performed on 04/08/2024 10:10 AM BMI - 14.901 kg/m2 (low), Height - 68 in, Weight - 98 lbs, Temperature - 96.8 f, Pulse - 72 /min, Respiration - 16 /min, O2 Sat - 96 %, Pain - 10, Fatigue - 0 and BP - 121/ 96 mm(hg)(/high). Physical Exam: omitted. Variable alertness noted. Imaging: Radiation therapy imaging related to accurate target localization (i.e. KV, MV and CBCT) was reviewed. Appropriate changes, if any, were made to ensure treatment accuracy. Plan; Improve pain control. Will switch to fentanyl patch with MSO4 concentrate liquid. Hospice will also assist in drug titration. Complete treatment here tomorrow. DXM is on a tapering schedule made by discharging hospitalist. Signed by: Dr. Henrik Renteria 04/08/2024 1:20:56 PM
== END 2024-04-11 23:59 | disposition home or self-care (01) ==
PROVIDERS: PCP Family Medicine; Visit Provider Radiology Radiation Oncology
DX: C77.0 Secondary and unspecified malignant neoplasm of lymph nodes of head, face and neck (principal); C54.1 Malignant neoplasm of endometrium; Z51.0 Encounter for antineoplastic radiation therapy
CPT/HCPCS: 77387; 77412; 78815; 96372; 96375; A9552; J2270